=== PATIENT | male | born 1950 | race African-American/Black ===

== ENCOUNTER → 2016-02-27 | Outpatient (CLI) | payer OTHER ==
[~2016-02-27] MED LIST: ALBU8.5H6 IH; ALLO100T PO; ASPI-482 PO; CARV10CP PO; CYAN100T PO; DIGO0.12 PO; GABA-585 PO; GEMF600T PO; HYDR-2672 PO; LISI2.5T PO; MULT-189 PO; OXYC-250 PO; TIOT18CA IH
--- NOTE | 2016-02-28 02:22 | PAIN ---
DATE OF SERVICE: 02/27/2016 DIAGNOSES: Lumbar radiculopathy with low back pain and post-lumbar laminectomy syndrome. HISTORY OF PRESENT ILLNESS: The patient is a 65-year-old male who returns for followup status post medication management with oxycodone 10 mg. The patient has been doing very well with this, has been on a very stable regimen, but still complains of pain across the low back and rates it as 6 on a scale of 10 at its worse. He also had an injury where he was shoveling some snow a few weeks back and tripped and fell on his right ankle. He is now wearing a boot cast on the ankle itself on the right side. The patient reports that this has increased his pain to some extent and causes back to ache more as he is walking with a limp with the right calf and foot, but otherwise has been doing fairly well. No new motor or sensory deficits, reports about 75-80% improvement with the medications and without side effects. The patient had appropriate K-TRACS reporting today and appropriate urinalysis today. We will have the urinalysis drawn today as well as routine screening. The patient's old chart was reviewed as his current medication regimen and updated. Current review of systems updated today as well. PHYSICAL EXAMINATION: VITAL SIGNS: Today, the patient's blood pressure is 132/84, pulse 68, respirations 18, temperature 98.0 degrees Fahrenheit. Height is 6 feet 3 inches, weight is 164 pounds. GENERAL: The patient is awake, alert, oriented, appropriate, very pleasant demeanor. HEENT: Shows normocephalic, atraumatic. Extraocular movements are intact, symmetrical. Oral cavity shows mucous membranes are moist and pink. Dentition is intact. NECK: Shows anterior throat supple. CHEST: Shows normal on inspection. Breath sounds are clear to auscultation bilaterally. HEART: Shows S1 and S2 clear. ABDOMEN: Soft, nontender, nondistended. BACK: The patient's back shows spine grossly in midline. There is some mild tenderness with palpation in the lumbar paraspinous musculature. Also well-healed surgical scarring is again noted in the midline. No radiation of pain. No asymmetry, atrophy or hypertrophy. EXTREMITIES: The patient's lower extremity showed deep tendon reflexes at 1+ in the patellar and tendo calcaneus tendons. Motor exam is strong with dorsiflexion, extension, quadriceps and hamstring flexion, rated at 5/5 and symmetrical. PLAN: Options were discussed with the patient. Once again, we will refill the patient's oxycodone for a 90-day period. The patient was given instruction as well as side effects to be aware of with the medication. Again, urinalysis will be obtained today and the patient will follow up in 90 days or sooner if necessary. JUAN NINA MD DR: ASHLEY/pamela JOB#: [id number] / [id number]
== END | disposition home or self-care (01) ==
LOC: PNCL 12:41
PROVIDERS: ATTEND Anesthesiology
DX: M96.1 Postlaminectomy syndrome, not elsewhere classified (principal)
CPT/HCPCS: 99212

== ENCOUNTER → 2016-05-21 | Outpatient (CLI) | payer OTHER ==
--- NOTE | 2016-05-22 02:41 | PAIN ---
DATE OF SERVICE: 05/21/2016 DIAGNOSES: Lumbar radiculopathy with low back pain and post-lumbar laminectomy syndrome. HISTORY OF PRESENT ILLNESS: The patient is a 65-year-old male who returns for followup status post medication management with oxycodone 10 mg. The patient has been doing very well with this, has been on very stable regimen with approximately 70-80% improvement with the medication without side effects for an extended period of time. The patient has been very stable on this regimen and has been doing well with this. He reports he has been increasing his activity recently with some minor increase in pain in the low back, but not radiating to the lower extremities to a significant extent at this time. The patient reports no new motor or sensory deficits, no new bowel or bladder incontinence. At this point, the patient's pain is a 6 on a scale of 10 at its worst, worse in the morning when he first gets up and once he gets up, walking around and moving, his pain seems to get better. Again the medication is doing very well. At this time, he does not require any adjustments or changes. He has had appropriate K-TRACS reporting as well as appropriate urinalysis to date as well. PHYSICAL EXAMINATION: VITAL SIGNS: The patient's blood pressure 150/97, pulse is 65, respirations 18, temperature 98.2 degrees Fahrenheit, height 6 feet 3 inches, weight is 165 pounds. GENERAL: The patient is awake, alert, oriented, appropriate, very pleasant demeanor. HEENT: Head shows normocephalic, atraumatic. Extraocular movements are intact and symmetrical. Oral cavity shows mucous membranes moist and pink. Dentition is intact. NECK: Shows anterior throat supple. Swallow reflex is symmetrical. Neck shows full rotational motion of cervical spine, both laterally as well as extension and flexion without difficulty. CHEST: Shows normal on inspection. Breath sounds are clear to auscultation bilaterally. HEART: Shows S1 and S2 clear. No murmurs auscultated. ABDOMEN: Soft, nontender, nondistended. No palpable organomegaly is noted. No rebound or guarding demonstrated. BACK: The patient's back shows spine grossly midline. Well healed surgical scars noted with some flattening of lumbar lordotic curvature. Lumbar paraspinous musculature shows symmetrical on inspection with palpation shows moderately tender, but only diffusely so in the middle and lower distribution of paraspinous muscles and is symmetrical. No tenderness over the sacrum or the sacroiliac regions. The patient shows good rotational motion of the lumbar spine, both laterally as well as extension and flexion without difficulty. EXTREMITIES: Lower extremities showed deep tendon reflexes at 1+ in the patellar and tendo calcaneus tendons. Motor exam is strong with dorsiflexion, extension, quadriceps and hamstring flexion and rated at 5/5 and equal. Peripheral pulses are 1+ posterior tibial and dorsalis pedis pulses. Options were discussed with the patient. The patient's old chart was reviewed and his current medication regimen updated. Current review of systems updated today as well. We will refill the patient's oxycodone for a 2-month prescription. The patient was given instruction as well as side effects to be aware of. Also discussed the patient's blood pressure elevation today. He will talk with his primary care physician. He reports he does have a blood pressure machine at home, which he checks and is usually lower than this, although he has been smoking today and we discussed the importance of cigarette smoking cessation secondary to not only this, but other health matters as well. The patient understands and will discuss this again with his primary care physician as well as his blood pressure issues. The patient will follow up in approximately 2 months as scheduled or sooner if necessary. JUAN NINA MD DR: ASHLEY/pamela JOB#: [id number] / [id number]
== END | disposition home or self-care (01) ==
LOC: PNCL 12:56
PROVIDERS: ATTEND Anesthesiology
DX: M54.16 Radiculopathy, lumbar region (principal); M96.1 Postlaminectomy syndrome, not elsewhere classified
CPT/HCPCS: 99212

== ENCOUNTER → 2016-07-10 | Outpatient (CLI) | payer OTHER ==
--- NOTE | 2016-07-10 17:16 | PAIN ---
DATE OF SERVICE: 07/10/2016 PROGRESS NOTE FOR PAIN CLINIC DIAGNOSES: Lumbar radiculopathy with low back pain and post-lumbar laminectomy syndrome. HISTORY OF PRESENT ILLNESS: The patient is a 65-year-old male, who returns for followup status post medication management with oxycodone 10 mg. The patient reports he is doing very well with this, being on a very stable regimen. Reports the pain is relieved by about 70%-80% and is performing his daily activities without any sedation without any other side effects, no constipation or other concerns. The patient reports his pain is a 6 on a scale of 10 at its worst, is a 5, currently in his low back and bilateral lower extremities. We discussed the interventional techniques in the past. The patient is adamantly against this as he has had these by his Report prior and no specific improvement. The patient is doing well with his medications. He is pleased with his level of pain control, again without significant side effects. The patient reports he sleeps well at night 7-8 hours, but it does awaken occasionally, but not every night. The patient reports he is seeing an eye specialists at next week. 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 PHYSICAL EXAMINATION: VITAL SIGNS: The patient's blood pressure 131/88, pulse 76, respirations 18, temperature is 98.1 degrees Fahrenheit, height is 6 feet 3 inches, weight is 165 pounds. GENERAL: The patient is awake, alert, oriented, appropriate, very pleasant demeanor. HEENT: Head shows normocephalic, atraumatic. Extraocular movements are intact, symmetrical. Oral cavity, mucous membranes are moist and pink. Dentition is intact. NECK: Shows anterior throat supple without palpable lymphadenopathy noted. Swallow reflex is symmetrical. CHEST: Shows normal on inspection. Breath sounds clear to auscultation bilaterally. HEART: Shows S1 and S2 clear. No murmurs auscultated. ABDOMEN: Soft, nontender, nondistended. No palpable organomegaly noted. No rebound or guarding demonstrated. BACK: Shows spine grossly midline. Normal appearing thoracic kyphosis and flattening of lumbar lordotic curvature. Well-healed surgical scar noted. Lumbar paraspinous musculature is firm, symmetrical and normal muscle girth, but very firm musculature only mildly tender, but throughout the upper, middle and lower distribution without radiation. EXTREMITIES: Lower extremities showed deep tendon reflexes 1+ in the patellar and tendo calcaneus tendons. Motor exam is strong with about 4 on a scale of 5, but symmetrical and equal with dorsiflexion and extension. Options were discussed with the patient and the patient's old chart was reviewed as his current medication regimen updated. Current review of systems updated today as well and we will refill the patient's oxycodone. He has had appropriate K-TRACS reporting as well as appropriate urinalysis to date without concerns on these and the patient will follow up in approximately 2 months, was given instruction as well as side effects to be aware of with the medication. JUAN NINA MD DR: ASHLEY/pamela JOB#: [id number] / [id number]
== END | disposition home or self-care (01) ==
LOC: PNCL 10:52
PROVIDERS: ATTEND Anesthesiology
DX: M54.16 Radiculopathy, lumbar region (principal); M96.1 Postlaminectomy syndrome, not elsewhere classified
CPT/HCPCS: 99212

== ENCOUNTER → 2016-09-04 | Outpatient (CLI) | payer OTHER ==
[~2016-09-04] MED LIST changes: -HYDR-2672 PO; +HYDR-2766 PO; -OXYC-250 PO; +OXYC-328 PO
== END | disposition home or self-care (01) ==
LOC: PNCL 08:41
PROVIDERS: ATTEND Anesthesiology
DX: M54.16 Radiculopathy, lumbar region (principal); Z98.890 Other specified postprocedural states
CPT/HCPCS: 99212

== ENCOUNTER → 2016-10-30 | Outpatient (CLI) | payer OTHER ==
--- NOTE | 2016-10-30 16:34 | PAIN ---
DATE OF SERVICE: 10/30/2016 DIAGNOSES: Lumbar radiculopathy with low back pain and post-lumbar laminectomy syndrome. HISTORY OF PRESENT ILLNESS: The patient is a 65-year-old male who returns for followup status post medication management with oxycodone 10 mg. The patient reports he is doing very well with this, being on a very stable regimen without side effects. The patient has been taking this for some time now with very good results. The patient has had appropriate urinalysis and appropriate K-TRACS reporting to date and we will renew his contract today as well as urinalysis today. The patient reports his pain is anywhere from a 3 to a 6 on a scale of 10, usually about a 4 in the low back itself. The patient reports it as aching and dull. We discussed some interventional techniques in the past and the patient is still adamantly against this as he has tried these in the past by his report without significant improvement. He is doing quite well on his medication. The patient reports it does not awaken him from sleep at night. He feels much better when he is lying down, sleeps 6-7 hours a night without disturbance from his pain. The patient reports no new motor or sensory deficits, no new bowel or bladder incontinence or other complaints. PHYSICAL EXAMINATION: VITAL SIGNS: The patient's blood pressure is 145/97, pulse 69, respirations are 20, temperature is 98.0 degrees Fahrenheit. Height is 6 feet 3 inches, weight is 163 pounds. GENERAL: The patient is awake, alert, oriented, appropriate. He is a very pleasant demeanor. HEENT: Head is normocephalic, atraumatic. Extraocular movements are intact and symmetrical. Oral cavity shows mucous membranes moist and pink. Dentition is intact. NECK: Shows anterior throat supple without palpable lymphadenopathy noted. Swallow reflex is symmetrical. CHEST: Shows normal on inspection. Breath sounds are clear bilaterally. HEART: Shows S1 and S2 clear. ABDOMEN: Soft, nontender, nondistended. BACK: Shows spine grossly in the midline. Lumbar paraspinous musculature shows some mild tenderness with palpation in the lumbar middle and lower distribution, but only diffusely without radiation. No tenderness over the sacrum or sacroiliac regions. Good rotational motion of the lumbar spine, both laterally as well as extension and flexion. LOWER EXTREMITIES: Showed deep tendon reflexes 1+ in the patellar and tendo-calcaneus tendons, are equal. Motor exam is strong with 5/5 dorsiflexion, extension, quadriceps and hamstring flexion. Pulses are 1+, posterior tibial and dorsalis pedis. No peripheral edema is noted. Options were discussed with the patient and the patient's old chart was reviewed as his current medication regimen updated. Current review of systems updated today as well. We will proceed with refill the patient's oxycodone at 10 mg for a 2-month supply. The patient was given instruction as well as side effects to be aware of. Also, it is noted the patient has had appropriate K-TRACS reporting and urinalysis today. We will renew his urinalysis to date as well as contract renewal for his narcotic contract. The patient was given a copy of this as well. We discussed activity level as well as increasing activity and hydration level with the opioid medication as well. The patient understands and agrees and will follow up in approximately 2 months or sooner if necessary. JUAN NINA MD DR: ASHLEY/pamela JOB#: [id number] / [id number]
== END | disposition home or self-care (01) ==
LOC: PNCL 11:33
PROVIDERS: ATTEND Anesthesiology
DX: M54.16 Radiculopathy, lumbar region (principal)
CPT/HCPCS: G0463

== ENCOUNTER → 2017-02-19 | Outpatient (CLI) | payer OTHER | END | disposition home or self-care (01) | LOC: PNCL 10:45 | DX: M54.16 Radiculopathy, lumbar region (principal); K59.00 Constipation, unspecified | CPT/HCPCS: 99212 ==

== ENCOUNTER → 2017-04-16 | Outpatient (CLI) | payer OTHER | END | disposition home or self-care (01) | LOC: PNCL 10:49 | DX: M54.16 Radiculopathy, lumbar region (principal) | CPT/HCPCS: 99212 ==

== ENCOUNTER → 2017-06-11 | Outpatient (CLI) | payer OTHER | END | disposition home or self-care (01) | LOC: PNCL 10:46 | DX: M54.16 Radiculopathy, lumbar region (principal) | CPT/HCPCS: 99212 ==

== ENCOUNTER → 2017-08-11 | Outpatient (CLI) | payer OTHER | END | disposition home or self-care (01) | LOC: PNCL 14:12 | DX: M54.16 Radiculopathy, lumbar region (principal) | CPT/HCPCS: 99212 ==

== ENCOUNTER → 2017-10-06 | Outpatient (CLI) | payer OTHER ==
[~2017-10-06] MED LIST changes: +OXYC10TA PO
--- NOTE | 2017-10-07 06:25 | PAIN ---
DATE OF SERVICE: 10/06/2017 PROGRESS NOTE FOR PAIN CLINIC DIAGNOSIS: Lumbar radiculopathy with post lumbar laminectomy syndrome and low back pain. HISTORY OF PRESENT ILLNESS: The patient is a 66-year-old male who returns for followup status post medication management with oxycodone 10 mg. The patient has been on very consistent and stable regimen with these medications and continues to do so. The patient reports no significant side effects. No constipation, itching, nausea or sedation. He is able to function very well with the medication and has no limitations, actually increases his ability to walk further distances and do household activities. The patient has been sleeping well at night about 6-7 hours at night. Reports pain does not generally awaken him from sleep. The patient complains of pain in the low back and the bilateral lower extremities, mostly posterior, but very well controlled with medications. The patient reports the pain is aching and shooting at times, worse with standing, walking, changing positions and better sitting or lying down. The patient reports the pain is a 6 on a scale of 10 at its worst, 6 on average, 4 at its least and is a 4 today. The patient reports no new motor or sensory deficits. No new bowel or bladder incontinence. Again no significant side effects with medication. PHYSICAL EXAMINATION: VITAL SIGNS: The patient's blood pressure 121/79, pulse 57, respirations 16, temperature 98.1 degrees Fahrenheit, height is 6 feet 3 inches and weight 156 pounds. GENERAL: The patient is awake, alert, oriented, appropriate, very pleasant demeanor. HEENT: Head shows normocephalic and atraumatic. Extraocular movements are intact and symmetrical. Oral cavity: Mucous membranes are moist and pink. Dentition is intact. NECK: Shows anterior throat is supple without palpable lymphadenopathy noted. Swallow reflex is symmetrical. CHEST: Shows normal on inspection. Breath sounds are clear to auscultation bilaterally. HEART: Shows S1 and S2 clear. No murmurs are auscultated. ABDOMEN: Soft, nontender, nondistended, no palpable organomegaly is noted. No rebound or guarding demonstrated. BACK: Shows spine gross in the midline. Normal appearing thoracic kyphosis and some slight flattening of the lumbar lordotic curvature. A well-healed surgical scar is noted in the lumbar distribution. No significant tenderness in the spinous processes of the sacrum and sacroiliac regions. Mild tenderness in the low lumbar distribution of the paraspinous muscles only diffusely without radiation. EXTREMITIES: Lower extremities show deep tendon reflexes at 1+ in the patella and tendo calcaneus tendons. Motor exam is strong with 5/5 dorsiflexion, extension, quadriceps and hamstring flexion equal bilaterally. Peripheral pulses were 1+ posterior tibial. Options were discussed with the patient. The patient's old chart was reviewed as was his current medication regimen updated and current review of systems updated today as well. We will refill the patient's medication oxycodone 10 mg for a 2-month prescription. The patient has had appropriate K-TRACS reporting as well as appropriate urinalyses today. We will refill for 2-month period. The patient will return to the clinic in approximately 2 months or sooner as necessary. The patient was given instructions as well as side effects to be aware of with these medications. JUAN NINA MD DR: ASHLEY/pamela JOB#: [id number] / [id number]
== END | disposition home or self-care (01) ==
LOC: PNCL 13:10
PROVIDERS: ATTEND Anesthesiology
DX: M54.16 Radiculopathy, lumbar region (principal)
CPT/HCPCS: 99212

== ENCOUNTER → 2017-12-09 | Outpatient (CLI) | payer OTHER ==
--- NOTE | 2017-12-10 04:02 | PAIN ---
DATE OF SERVICE: 12/09/2017 PROGRESS NOTE FOR PAIN CLINIC DIAGNOSES: Lumbar radiculopathy with post-lumbar laminectomy syndrome and low back pain. HISTORY OF PRESENT ILLNESS: The patient is a 67-year-old male who returns for followup status post medication management with oxycodone 10 mg. The patient reports he has been doing very well with this, has been on very stable regimen with good control of his low back and bilateral lower extremity pain. The patient reports no side effects of the medication with about a 75%-80% improvement overall. The patient reports still some pain as aching and dull in the low back itself, worse with walking and activity but fairly well controlled. The patient reports it as a 7 on a scale of 10 at its worst, average and at its least and is a 7 pretty much at all times. The patient reports it is better with sitting or lying down or being on his feet, walking and standing but doing quite well. The patient reports no new motor or sensory deficits and no new bowel or bladder incontinence or other complaints. PHYSICAL EXAMINATION: VITAL SIGNS: The patient's blood pressure 116/54, pulse 73, respirations 18 and temperature 98.4 degrees Fahrenheit. Height is 6 feet 3 inches and weight is 156 pounds. GENERAL: The patient is awake, alert, oriented, appropriate and very pleasant demeanor. HEENT: Head is normocephalic and atraumatic. Extraocular movements are intact and symmetrical. Oral cavity, mucous membranes moist and pink. Dentition intact. NECK: Shows anterior throat supple without palpable lymphadenopathy noted. Swallow reflex is symmetrical. CHEST: Shows normal with inspection. Breath sounds are clear to auscultation bilaterally. HEART: Shows S1 and S2 clear. No murmurs auscultated. ABDOMEN: Soft, nontender and nondistended. No palpable organomegaly is noted. No rebound or guarding demonstrated. BACK: Shows spine grossly in the midline. Normal appearing thoracic kyphosis, some minor flattening of the lumbar lordotic curvature. Well-healed surgical scaring noted in the lumbar distribution. Lumbar paraspinous musculature shows symmetrical on inspection, on palpation shows some moderate tenderness bilaterally but only diffusely in the middle and upper, middle and lower distribution of the paraspinous muscles, again diffusely without radiation, without trigger points. The patient has good rotational motion of the lumbar spine, both laterally as well as extension and flexion without pain reported. EXTREMITIES: Lower extremity shows deep tendon reflexes 1+ in the patellar and tendo-calcaneus tendons. Motor exam is strong with 5/5 dorsiflexion, extension, quadriceps and hamstring flexion and symmetrical. Peripheral pulses are 1+ posterior tibial. No peripheral edema is noted. Options were discussed with the patient. The patient's old chart was reviewed as well as his current medication regimen updated. Current review of systems updated today as well. We will proceed with refill of the patient's oxycodone. The patient had appropriate K-TRACS reporting as well as appropriate urinalysis to date and we will refill the patient for 2 months. The patient was given instructions as well as side effects to be aware of. We will follow up in approximately 2 months or sooner as necessary. JUAN NINA MD DR: ASHLEY/pamela JOB#: [id number] / [id number]
== END | disposition home or self-care (01) ==
LOC: PNCL 14:25
PROVIDERS: ATTEND Anesthesiology
DX: M54.16 Radiculopathy, lumbar region (principal); M96.1 Postlaminectomy syndrome, not elsewhere classified
CPT/HCPCS: 99212

== ENCOUNTER → 2018-02-03 | Outpatient (CLI) | payer OTHER ==
[~2018-02-03] MED LIST changes: +BUTA1CAP31 PO; -HYDR-2766 PO; +HYDR-2769 PO; -OXYC-328 PO; +OXYC1TAB22 PO
--- NOTE | 2018-02-03 12:49 | PAIN ---
DATE OF SERVICE: 02/03/2018 PROGRESS NOTE FOR PAIN CLINIC DIAGNOSES: Lumbar radiculopathy with post-lumbar laminectomy syndrome and low back. HISTORY OF PRESENT ILLNESS: The patient is a 67-year-old male who returns for followup status post medication management with oxycodone. The patient states he has been doing very well because he has been on a very stable regimen for an extended period of time, now doing quite well with medication up to 4 tablets a day, 10 mg oxycodone. The patient reports he still has some significant back pain, but rates it as only a 6 on a scale of 10 at its worst, 3 on average and a 2 at its least and it is a 3 today. The patient reports it is aching and dull with motion and standing or walking. The patient reports it is better with sitting or lying down. It does not awaken him from sleep at night. The patient has been doing the same with the ability to tolerate distance walking, changing positions and working at home. The patient relates that his dog was lost for a period of several weeks and this has caused some emotional stress as well and he has been walking more, looking for the dog, which does seem to exacerbate his low back pain, but not doing intolerable level and the medication has been taking care of the pain to his satisfaction. The patient reports approximately 75% improvement with the medication and without side effects. The patient reports no new motor or sensory deficits. No new bowel or bladder incontinence or other complaints. PHYSICAL EXAMINATION: VITAL SIGNS: The patient's blood pressure 132/86, pulse 74, respirations 18 and temperature 98.3 degrees Fahrenheit, Height is 6 feet 3 inches, weight is 155 pounds. GENERAL: The patient is awake, alert, oriented, appropriate, very pleasant demeanor. HEENT EXAMINATION: Shows normocephalic, atraumatic. Extraocular movements are intact and symmetrical. Oral cavity, mucous membranes are moist and pink. Dentition is intact. NECK: Shows anterior throat supple, without palpable lymphadenopathy noted. Swallow reflex is symmetrical. CHEST: Shows normal on inspection. Breath sounds are clear to auscultation bilaterally. HEART: Shows S1, S2 clear. No murmurs auscultated. ABDOMEN: Soft, nontender and nondistended. No palpable organomegaly is noted. No rebound or guarding demonstrated. BACK: Shows spine grossly in the midline. Normal-appearing thoracic kyphosis and minor flattening of the lumbar lordotic curvature. There is a well-healed surgical scar in the lumbar distribution. Lumbar paraspinous muscle shows symmetrical on inspection. On palpation, it shows some mild tenderness, but only diffusely, throughout the upper, middle and lower distribution of the paraspinous muscles, but they are symmetrical without evidence of atrophy or hypertrophy. No trigger points. No radiation of pain. No tenderness over the spinous processes, sacrum or sacroiliac regions. The patient has good rotational motion of the lumbar spine, both laterally as well as extension and flexion without significant difficulty. EXTREMITIES: Lower extremities show deep tendon reflexes 1+ in the patellar and tendo calcaneus tendons are equal. Motor exam is strong with 5/5 dorsiflexion, extension, quadriceps and hamstring flexion and symmetrical as well. Peripheral pulses are 1+. No peripheral edema is noted. Options were discussed with the patient. The patient's old chart was reviewed as well as his current medication regimen updated. Current review of systems updated today as well, and we will proceed with refilling the patient's oxycodone for a 2-month period. The patient has had appropriate K-TRACS reporting as well as appropriate urinalysis to date, and we will give him a 2-month prescription with instructions and side effects to be aware of. The patient will return to the clinic in approximately 2 months as scheduled or sooner as necessary. JUAN NINA MD DR: ASHLEY/pamela JOB#: [id number] / [id number]
== END | disposition home or self-care (01) ==
LOC: PNCL 09:51
PROVIDERS: ATTEND Anesthesiology
DX: M54.16 Radiculopathy, lumbar region (principal); M96.1 Postlaminectomy syndrome, not elsewhere classified; Z79.899 Other long term (current) drug therapy
CPT/HCPCS: G0463

== ENCOUNTER → 2018-03-31 | Outpatient (CLI) | payer OTHER ==
--- NOTE | 2018-03-31 16:17 | PAIN ---
DATE OF SERVICE: 03/31/2018 PROGRESS NOTE FOR PAIN CLINIC DIAGNOSES: Lumbar radiculopathy with post-lumbar laminectomy syndrome and low back pain. HISTORY OF PRESENT ILLNESS: The patient is a 67-year-old male who returns for followup status post medication management with oxycodone 10 mg. The patient had been doing very well, has been on very stable regimen with this for some time now, reports doing quite well, decreased pain about 75-80% with the medication. The patient reports he has not been very active this is because of some cold weather lately and has been staying indoors mostly and resting. The patient reports this helps his pain as well, but he is still unable to get up and around when he needs to, still some pain in the low back, bilateral lower extremities, mostly in the posterior gluteus, posterior thighs, worse with standing from sitting position, but sleeping well at night, awakens him occasionally, but not every night, usually sleeps about 7 hours without disturbance. The patient reports he has been increasing distance walking when the weather is better, is doing household activities with greater ease and comfort and traveling fairly easily as well, getting in and out of a vehicle. The patient reports the pain is 7 on a scale of 10 at its worst, 6 on average, 5 at its least and is a 5 today. The patient reports it is an aching, dull, sometimes stabbing and burning, but generally just aching in the low back and occasionally shooting in the legs. PHYSICAL EXAMINATION: VITAL SIGNS: The patient's blood pressure 126/86, pulse 67, respirations 16, temperature 97.9 degrees Fahrenheit, weight is 157 pounds. GENERAL: The patient is awake, alert, oriented, appropriate, very pleasant demeanor. HEENT: Head shows normocephalic, atraumatic. Extraocular muscles are intact and symmetrical. Oral cavity: Mucous membranes moist and pink. Dentition is intact. NECK: Shows anterior throat supple without palpable lymphadenopathy noted. Swallow reflex symmetrical. CHEST: Shows normal with inspection. Breath sounds clear to auscultation bilaterally. HEART: Shows S1 and S2 clear. No murmurs auscultated. ABDOMEN: Soft, nontender, nondistended. No palpable organomegaly is noted. No rebound or guarding demonstrated. BACK: Shows spine grossly in the midline, slight exaggeration of thoracic kyphosis and flattening of lumbar lordotic curvature. Well healed surgical scar is noted in the lumbar distribution. Lumbar paraspinous muscle shows symmetrical on inspection. With palpation shows some moderate tenderness but only diffusely bilaterally throughout the upper, middle, lower distribution of paraspinous muscles. The patient has good rotational motion of the lumbar spine, both laterally greater than 10 degrees right and left as well as extension greater than 10 degrees, forward flexion 45 degrees without significant pain reported. EXTREMITIES: The patient's lower extremities show deep tendon reflexes at 1+ in the patellar and tendo-calcaneus tendons. Motor exam is strong with approximately 5/5 dorsiflexion, extension, and 4/5 quadriceps and hamstring flexion, but symmetrical. Peripheral pulses are 1+ posterior tibia. No peripheral edema is noted bilaterally. PLAN: Options were discussed with the patient. The patient's old chart was reviewed as his current medication regimen updated. Current review of systems updated today as well. We will refill the patient's oxycodone for a 2-month refill. The patient has had appropriate K-TRACS reporting and appropriate urinalysis to date. We have a urinalysis today taken for a routine screening. The patient was given instruction as well as side effects to be aware of with this medication. The patient will follow up in approximately 2 months or sooner as necessary. JUAN NINA MD DR: ASHLEY/pamela JOB#: [id number] / [id number]
== END | disposition home or self-care (01) ==
LOC: PNCL 09:49
PROVIDERS: ATTEND Anesthesiology
DX: Z01.818 Encounter for other preprocedural examination (principal); M54.16 Radiculopathy, lumbar region; M40.294 Other kyphosis, thoracic region
CPT/HCPCS: G0463

== ENCOUNTER → 2018-05-26 | Outpatient (CLI) | payer OTHER ==
[~2018-05-26] MED LIST changes: -CYAN100T PO; +CYAN100T2 PO
--- NOTE | 2018-05-27 04:01 | PAIN ---
DATE OF SERVICE: 05/26/2018 PROGRESS NOTE FOR PAIN CLINIC DIAGNOSES: Lumbar radiculopathy with lumbar post-laminectomy syndrome and low back pain. HISTORY OF PRESENT ILLNESS: The patient is a 67-year-old male who returns for followup status post medication management with oxycodone 10 mg. The patient reports he has been doing very well with this, is on a very stable regimen, taking the medication without significant side effects, occasional constipation but only very rarely. The patient reports he is controlling his pain fairly well with increased activity, walking and doing activities at home, traveling with greater ease. The patient reports he is sleeping well at night, does not awaken him from sleep, sleeps about 8 hours at a time. The patient reports the pain is in the low back itself, some into the posterior hips, mostly just in the low back aching, tingling and stabbing at times, rates it 8 on a scale of 10 at its worst over the last week, 7 on average and a 5 at its least and is a 5 today. The patient reports that he is able to tolerate medication and is not having any side effects, which allows him to do activities to an extent where he is pleased with this and its content. The patient reports no other changes. No new bowel or bladder incontinence or other complaints. No new motor or sensory deficits. PHYSICAL EXAMINATION: VITAL SIGNS: The patient's blood pressure is 116/71, pulse 70, respirations 18 and temperature 98.7 degrees Fahrenheit. Height is 6 feet 3 inches and weight 155 pounds. GENERAL: The patient is awake, alert, oriented, appropriate and very pleasant demeanor. HEENT: Head shows normocephalic and atraumatic. Extraocular movements are intact and symmetrical. Oral cavity: Mucous membranes moist and pink. Dentition is intact. NECK: Shows anterior throat supple without palpable lymphadenopathy noted. Swallow reflex symmetrical. CHEST: Shows normal on inspection. Breath sounds clear to auscultation bilaterally. HEART: Shows S1 and S2 clear. No murmurs auscultated. ABDOMEN: Soft, nontender and nondistended. No palpable organomegaly is noted. No rebound or guarding demonstrated. BACK: Shows spine grossly in the midline. Normal appearing thoracic kyphosis, some minor flattening of the lumbar lordotic curvature. Lumbar paraspinous muscle shows symmetrical on inspection, on palpation shows some moderate tenderness but only diffusely without significant radiation. EXTREMITIES: The patient's lower extremities show deep tendon reflexes at 1+ in the patellar and tendo-calcaneus tendons. Motor exam is strong with 5/5 dorsiflexion, extension, quadriceps and hamstring flexion and symmetrical. Peripheral pulses are 1+ posterior tibia. No peripheral edema is noted bilaterally. Options were discussed with the patient. The patient's old chart was reviewed as well as his current medication regimen updated. Current review of systems updated today as well and we will proceed with refill the patient's medication for 2-month prescription. The patient has had appropriate K-TRACS reporting as well as appropriate urinalysis to date. We will refill this for 2-month period. The patient was given instructions as well as side effects to be aware of with the medication and will follow up in 2 months or sooner if necessary. JUAN NINA MD DR: ASHLEY/pamela JOB#: [id number] / [id number]
== END | disposition home or self-care (01) ==
LOC: PNCL 09:36
PROVIDERS: ATTEND Anesthesiology
DX: M54.16 Radiculopathy, lumbar region (principal); M96.1 Postlaminectomy syndrome, not elsewhere classified
CPT/HCPCS: G0463

== ENCOUNTER → 2018-07-21 | Outpatient (CLI) | payer OTHER ==
--- NOTE | 2018-07-22 02:23 | PAIN ---
DATE OF SERVICE: 07/21/2018 PROGRESS NOTE FOR PAIN CLINIC DIAGNOSES: Lumbar radiculopathy with lumbar post-laminectomy syndrome and low back pain. HISTORY OF PRESENT ILLNESS: The patient is a 67-year-old male, who returns for followup status post medication management with oxycodone. The patient reports he has been doing very well with this, has been on very stable regimen, reports good control of pain with about 80% improvement overall without significant side effects. The patient reports still pain in the low back in the lower extremities bilaterally, but very manageable with his medication and his current regimen. The patient reports it is an 8 on a scale of 10 at its worst over the past week, 7 on average, 7 at its least and is 7 today. The patient reports it is aching, dull, sometimes tight and shooting into the legs, worse with walking and standing, but generally does pretty well with his medications and he has been able to get around each day with daily activities, taking care of his home and pets as well. The patient reports he has been increasing his ability to walk distances with the medications, again no side effects. The patient reports he is sleeping well at night. PHYSICAL EXAMINATION: VITAL SIGNS: The patient's blood pressure 145/85, pulse 67, respirations 18, temperature 97.8 degrees Fahrenheit, height 6 is feet and 3 inches and weighs 159 pounds. GENERAL: The patient is awake, alert, oriented, appropriate, very pleasant demeanor. HEENT: Head is normocephalic, atraumatic. Extraocular movements are intact and symmetrical. Oral cavity: Mucous membranes moist and pink. Dentition is intact. NECK: Shows anterior throat supple without palpable lymphadenopathy noted. Swallow reflex symmetrical. CHEST: Shows normal with inspection. Breath sounds clear to auscultation bilaterally. HEART: Shows S1, S2 clear. No murmurs auscultated. ABDOMEN: Soft, nontender, nondistended. BACK: Shows spine grossly in the midline, normal cervical lordotic curvature, thoracic kyphotic curvature, some minor flattening of lumbar lordotic curvature. Well-healed surgical scar in the lumbar distribution. Lumbar paraspinous muscle shows symmetrical on inspection. With palpation, it shows some mild tenderness throughout the upper, middle and lower distribution of paraspinous muscles, but only diffusely without radiation. No tenderness over the spinous processes, sacrum or sacroiliac regions. The patient has good rotational motion of lumbar spine, both laterally as well as extension and flexion without significant pain reported. EXTREMITIES: The patient's lower extremities show deep tendon reflexes at 1+ in the patellar and tendo calcaneus tendons. Motor exam is approximately 4 on a scale of 5 with quadriceps and hamstring flexion equal and 5/5 at the ankles with dorsiflexion, extension and symmetrical. Peripheral pulses are 1+ posterior tibial. No peripheral edema is noted. PLAN: Options were discussed with the patient. The patient's old chart was reviewed as well ahis his current medication regimen updated. Current review of systems updated today as well. We will refill the patient's medication, oxycodone 10 mg with instructions and side effects to be aware of discussed. The patient had appropriate K-TRACS reporting as well as appropriate urinalysis to date and we will refill the patient's medication for 2 months. The patient will return to clinic in approximately 2 months or sooner as necessary. JUAN NINA MD DR: ASHLEY/pamela JOB#: [id number] / [id number]
== END | disposition home or self-care (01) ==
LOC: PNCL 11:26
PROVIDERS: ATTEND Anesthesiology
DX: M54.16 Radiculopathy, lumbar region (principal); M96.1 Postlaminectomy syndrome, not elsewhere classified
CPT/HCPCS: G0463

== ENCOUNTER → 2018-09-15 | Outpatient (CLI) | payer OTHER ==
--- NOTE | 2018-09-15 20:30 | PAIN ---
DATE OF SERVICE: 09/15/2018 PROGRESS NOTE FOR PAIN CLINIC DIAGNOSES: Lumbar radiculopathy with lumbar post-laminectomy syndrome and low back pain. HISTORY OF PRESENT ILLNESS: The patient is a 67-year-old male who returns for followup status post medication management with oxycodone 10 mg. The patient reports he is doing very well, has been on very stable regimen without significant side effects. Reports the pain is generally about 80% improved or better with the medication. The patient reports no new motor or sensory deficits and no new bowel or bladder incontinence. The patient reports still significant pain in the low back itself, some in the lower extremities, radiating to the posterior gluteus and thighs, but generally just in the low back, worse with walking, standing, changing positions, better with sitting or lying down. The patient reports pain at 9 on a scale of 10 at its worst over the past week, 7 on average, 5 at its least and is a 5 today. The patient reports it is aching and tingling in the back, but again well controlled with medication without significant side effects. The patient reports he has been doing well, sleeping at night, better with sitting or lying down, but there has been increased activity with daily activities, walking, doing home activities and traveling with greater ease and comfort with the help of the medication. PHYSICAL EXAMINATION: VITAL SIGNS: The patient's blood pressure 124/86, pulse 69, respirations 18, temperature 97.9 degrees Fahrenheit, height is 6 feet 3 inches and weighs 165 pounds. GENERAL: The patient is awake, alert, oriented, appropriate, very pleasant demeanor. HEENT: Head is normocephalic, atraumatic. Extraocular movements are intact and symmetrical. Oral cavity: Mucous membranes moist and pink. Dentition is intact. NECK: Shows anterior throat supple without palpable lymphadenopathy noted. Swallow reflex is symmetrical. CHEST: Shows normal on inspection. Breath sounds clear to auscultation bilaterally. HEART: Shows S1, S2 clear. No murmurs auscultated. ABDOMEN: Soft, nontender and nondistended. No palpable organomegaly is noted. No rebound or guarding demonstrated. BACK: Shows spine grossly in the midline. Normal-appearing thoracic kyphosis and lumbar lordotic curvature slightly flattened. Well-healed surgical scars noted. Lumbar paraspinous muscle shows symmetrical, on palpation shows some mild tenderness diffusely bilaterally without radiation. The patient has good rotational motion of lumbar spine, both laterally as well as extension and flexion without significant increase in pain. EXTREMITIES: Lower extremities show deep tendon reflexes 1+ in the patellar and tendo-calcaneus tendons. Motor exam is strong with 5/5 dorsiflexion, extension and equal bilaterally. Peripheral pulses are 1+. No peripheral edema is noted. Options were discussed with the patient. The patient's old chart was reviewed as his current medication regimen updated. Current review of systems updated today as well. We will proceed with a refill of the patient's oxycodone 10 mg for a 2-month period. The patient has had appropriate K-TRACS reporting as well as appropriate urinalysis to date and we will make this a 2-month prescription. The patient was given instruction as well as side effects to be aware of with the medication and will follow up in approximately 2 months or sooner as necessary. JUAN NINA MD DR: ASHLEY/pamela JOB#: [id number] / [id number]
== END | disposition home or self-care (01) ==
LOC: PNCL 11:00
PROVIDERS: ATTEND Anesthesiology
DX: M54.16 Radiculopathy, lumbar region (principal); M96.1 Postlaminectomy syndrome, not elsewhere classified
CPT/HCPCS: G0463

== ENCOUNTER → 2018-11-10 | Outpatient (CLI) | payer OTHER ==
--- NOTE | 2018-11-10 16:11 | PN ---
DATE: 11/10/2018 PROGRESS NOTE FOR PAIN CLINIC DIAGNOSES: Lumbar radiculopathy with lumbar post-laminectomy syndrome and low back pain. HISTORY OF PRESENT ILLNESS: The patient is a 68-year-old male who returns for followup status post medication management with oxycodone 10 mg. The patient reports he is doing very well, has been on a very stable regimen with medication without side effects. The patient reports he is doing quite well, has increased his activities, walking, doing household activities, traveling with greater ease and comfort. Medication not cause any side effects, no sedation, drowsiness, itching or nausea. Occasional constipation, but is relieved with fiber and increased hydration. The patient reports no other changes. The patient reports his pain is 7 on a scale of 10 at all times, worst, average and least over the past week and is at 7 today. The patient reports it is aching and stabbing in the low back, some in the base of the neck as well, but mostly in the low back. He is having difficulty sleeping as his 's CPAP machine has not been functioning correctly recently and he stays up with her when she cannot sleep. The patient reports otherwise doing well. No new change. No new bowel or bladder incontinence. No side effects. PHYSICAL EXAMINATION: VITAL SIGNS: The patient's blood pressure 123/73, pulse 78, respirations 18, temperature 98.3 degrees Fahrenheit, height is 6 feet 3 inches and weight is 161 pounds. GENERAL: The patient is awake, alert, oriented, appropriate, very pleasant demeanor. HEENT: Shows head is normocephalic, atraumatic. Extraocular movements are intact and symmetrical. Oral cavity: Mucous membranes moist and pink. Dentition is intact. NECK: Shows anterior throat supple without palpable lymphadenopathy noted. Swallow reflex symmetrical. CHEST: Shows normal on inspection. Breath sounds are clear bilaterally. HEART: Shows S1, S2 clear. No murmurs auscultated. ABDOMEN: Soft, nontender, nondistended. BACK: Shows spine grossly in the midline, slight exaggerated thoracic kyphosis and minor flattening of lumbar lordotic curvature. Lumbar paraspinous muscle shows symmetrical on inspection, with palpation shows some mild tenderness diffusely throughout the upper, middle and lower distribution of the paraspinous muscles, but only diffusely, also cervical paraspinous musculature shows symmetrical on inspection, with palpation shows some mild tenderness in the inferior aspect of the cervical paraspinous muscles, but with good rotational motion of the cervical spine without difficulty. Lumbar spine shows good rotation as well including extension, flexion in right and left lateral rotation. EXTREMITIES: Lower extremities show deep tendon reflexes 1+ in the patellar and tendo calcaneus tendons. Motor exam is strong with 5/5 dorsiflexion and extension. Peripheral pulses are 1+. No peripheral edema is noted. Options were discussed with the patient. The patient's old chart was reviewed as his current medication regimen updated. Current review of systems updated today as well. We will refill the patient's oxycodone for 2-month period prescription. The patient has had appropriate K-TRACS reporting as well as appropriate urinalysis to date. The patient was given instruction as well as side effects to be aware of these medications. He will follow up in approximately 2 months or sooner if necessary. JUAN NINA MD DR: ASHLEY/pamela JOB#: [id number] / [id number]
== END | disposition home or self-care (01) ==
LOC: PNCL 11:05
PROVIDERS: ATTEND Anesthesiology
DX: M54.16 Radiculopathy, lumbar region (principal); M96.1 Postlaminectomy syndrome, not elsewhere classified
CPT/HCPCS: G0463

== ENCOUNTER → 2019-01-05 | Outpatient (CLI) | payer OTHER ==
--- NOTE | 2019-01-05 12:30 | PAIN ---
DATE OF SERVICE: 01/05/2019 PROGRESS NOTE FOR PAIN CLINIC DIAGNOSES: Lumbar radiculopathy with lumbar post-laminectomy syndrome and low back pain. HISTORY OF PRESENT ILLNESS: The patient is a 68-year-old male who returns for followup status post medication management with oxycodone for his low back pain. The patient reports he has been doing very well, has been on a very stable regimen. He has been on the medications for an extended period of time with good results and no significant side effects. The patient reports occasional constipation, but he does take some fiber laxative supplements every day and this seems to control or else he keeps himself hydrated adequately. The patient reports the pain has been little worse with some colder weather it had last week, but otherwise doing fairly well. The patient still rates his pain as about a 75%-80% improvement overall with the medication and again no significant side effects. The patient reports the pain is at 8 on a scale of 10 at its worst over the past week, 7 on average, 5 at its least and is a 5 today in the low back itself. The patient reports it is aching, tingling, constant at times in the low back itself without specific radiation at this time, but occasionally into the right lower extremity in the posterior gluteus and thigh. The patient reports no new motor or sensory deficits, no new bowel or bladder incontinence or other complaints. The patient is sleeping well at night, increases activity with walking and doing household activities to his normal level without any significant increase in physical exertion. PHYSICAL EXAMINATION: VITAL SIGNS: The patient's blood pressure 120/73, pulse 68, respirations 16, temperature 98.0 degrees Fahrenheit, height is 6 feet 3 inches and weight is 164 pounds. GENERAL: The patient is awake, alert, oriented, appropriate, very pleasant demeanor. HEENT: Shows normocephalic, atraumatic. Extraocular movements are intact and symmetrical. Oral cavity: Mucous membranes moist and pink. Dentition is intact. NECK: Shows anterior throat supple without palpable lymphadenopathy noted. Swallow reflex symmetrical. CHEST: Shows normal on inspection. Breath sounds clear to auscultation bilaterally. HEART: Shows S1, S2 clear. No murmurs auscultated. ABDOMEN: Soft, nontender, nondistended. No organomegaly is noted. No rebound or guarding demonstrated. BACK: Shows spine grossly in the midline, slight exaggerated thoracic kyphosis, some minor flattening of lumbar lordotic curvature. Lumbar paraspinous muscle shows symmetrical on inspection, on palpation shows some moderate tenderness diffusely bilaterally, but only diffusely without significant radiation. The patient shows good rotational motion of lumbar spine, both laterally greater than 10 degrees right and left as well as extension greater than 10 degrees, forward flexion 45 degrees without significant pain reported. EXTREMITIES: Lower extremities show deep tendon reflexes 1+ in the patellar and tendo calcaneus tendons are equal. Motor exam is strong with 5/5 dorsiflexion, extension, quadriceps and hamstring flexion and symmetrical. Peripheral pulses are 1+ posterior tibia. No peripheral edema is noted bilaterally. Options were discussed with the patient. The patient's old chart was reviewed as his current medication regimen updated. Current review of systems updated today as well. We will refill the patient's oxycodone 10 mg for a 2-month period. The patient had appropriate K-TRACS reporting as well as appropriate urinalysis to date. We will make a 2-month prescription with instructions, side effects to be aware of discussed with each of the medications. The patient will also have UA drawn today as a routine screening. Also, renew the patient's narcotic contract. The patient was given a copy of this as well. The patient will follow up in approximately 2 months or sooner as necessary. JUAN NINA MD DR: ASHLEY/pamela JOB#: [id number] / [id number]
== END | disposition home or self-care (01) ==
LOC: PNCL 11:33
PROVIDERS: ATTEND Anesthesiology
DX: M54.16 Radiculopathy, lumbar region (principal); M96.1 Postlaminectomy syndrome, not elsewhere classified
CPT/HCPCS: G0463

== ENCOUNTER → 2019-03-30 | Outpatient (CLI) | payer OTHER ==
--- NOTE | 2019-03-30 12:46 | PAIN ---
DATE OF SERVICE: 03/30/2019 PROGRESS NOTE FOR PAIN CLINIC DIAGNOSES: Lumbar radiculopathy with lumbar post-laminectomy syndrome and low back pain. HISTORY OF PRESENT ILLNESS: The patient is a 68-year-old male who returns for followup status post medication management with oxycodone 10 mg. The patient reports he has been doing very well with this, has been on very stable regimen with about a 70%-80% improvement in the low back pain, which allowed him to be functional to a level where he is content with. The patient reports still some significant pain in the low back, worse with activity. The patient reports it is a 9 on a scale of 10 at its worst over the past week, 7 on average, 6 at its least and is a 6 today. The patient reports it is aching, stabbing, can be constant with activity, standing, walking, changing positions, better with sitting or lying down, generally does not awaken him from sleep at night. The patient again has no side effects with his medications on very stable regimen as well. PHYSICAL EXAMINATION: VITAL SIGNS: The patient's blood pressure 122/84, pulse 81, respirations 18, temperature is 98.2 degrees Fahrenheit, height is 6 feet 3 inches and weight is 161 pounds. GENERAL: The patient is awake, alert, oriented, appropriate, very pleasant demeanor. HEENT: Shows normocephalic, atraumatic. Extraocular movements are intact and symmetrical. Oral cavity: Mucous membranes moist and pink. Dentition is intact. NECK: Shows anterior throat supple without palpable lymphadenopathy noted. Swallow reflex symmetrical. CHEST: Shows normal on inspection. Breath sounds are clear bilaterally. HEART: Shows S1, S2 clear. No murmurs auscultated. ABDOMEN: Soft, nontender, nondistended. No palpable organomegaly is noted. No rebound or guarding demonstrated. BACK: Shows spine grossly in the midline. Normal appearing thoracic kyphosis and lumbar lordotic curvature. Lumbar paraspinous muscle shows symmetrical on inspection with a well-healed surgical scar, with palpation shows some moderate tenderness diffusely bilaterally going diffusely without significant radiation. The patient has good rotational motion of lumbar spine, both laterally as well as extension and flexion without significant difficulty. EXTREMITIES: The patient's lower extremities show deep tendon reflexes at 1+ in the patellar and tendo calcaneus tendons are equal. Motor exam is approximately 4 on a scale of 5, but symmetrical with dorsiflexion, extension, quadriceps and hamstring flexion bilaterally. Peripheral pulses are 1+ posterior tibia. No peripheral edema is noted. Options were discussed with the patient. The patient's old chart was reviewed as his current medication regimen updated. Current review of systems updated today as well. We will refill the patient's oxycodone at 10 mg for a 2-month period. The patient has had appropriate K-TRACS reporting as well as appropriate urinalysis to date and we will refill this for 2-month period. The patient was given instruction as well as side effects to be aware of each of the medications and will follow up in approximately 2 months or sooner as necessary. JUAN NINA MD DR: ASHLEY/pamela JOB#: [id number] / [id number]
== END | disposition home or self-care (01) ==
LOC: PNCL 11:03
PROVIDERS: ATTEND Anesthesiology
DX: M54.16 Radiculopathy, lumbar region (principal); M96.1 Postlaminectomy syndrome, not elsewhere classified
CPT/HCPCS: G0463

== ENCOUNTER → 2019-05-25 | Outpatient (CLI) | payer OTHER ==
--- NOTE | 2019-05-25 11:24 | PAIN ---
DATE OF SERVICE: 05/25/2019 PROGRESS NOTE FOR PAIN CLINIC DIAGNOSES: Lumbar radiculopathy with lumbar low back pain and post-lumbar laminectomy syndrome. HISTORY OF PRESENT ILLNESS: The patient is a 68-year-old male who returns for followup status post medication management with oxycodone 10 mg and done very well, has been on a very stable regimen. No side effects. The patient reports it is controlling his pain fairly significantly about 75% or better most of the time. The patient reports it is worse with increased activity, excessive exertion with the low back, but it has been fairly constant with his activity recently. Reports the pain fairly well controlled. Again, no side effects of the medication. Patient reports the pain is in the low back itself, aching and constant, is rated as 7 on a scale of 10 at its worst over the past week, 7 on average and 4 at its least and is a 7 today. The patient reports no new motor or sensory deficits, no new changes, no new bowel or bladder incontinence or other concerns. We did discuss possibility of adding a nonsteroidal anti-inflammatory medicine. He has tried these in the past and we discussed this and we will try. He would like to try [id number] formulations initially. We discussed trying ibuprofen at 400-600 mg 3 times daily to see if this may decrease the pain, perhaps decrease the amount of narcotic that he may need. The patient is amenable to this and would like to try as well. PHYSICAL EXAMINATION: VITAL SIGNS: The patient's blood pressure 124/80, pulse 73, respirations 16, temperature 98.3 degrees Fahrenheit, weight is 163 pounds. GENERAL: The patient is awake, alert, oriented, appropriate, very pleasant demeanor. HEENT: Exam shows normocephalic, atraumatic. Extraocular movements are intact and symmetrical. Oral cavity shows mucous membranes moist and pink. Dentition is intact. NECK: Shows anterior throat supple without palpable lymphadenopathy noted. Swallow reflex symmetrical. CHEST: Shows normal on inspection. Breath sounds are clear bilaterally. HEART: Shows S1, S2 clear. No murmurs auscultated. ABDOMEN: Soft, nontender, nondistended. BACK: Shows spine grossly in the midline, slightly exaggerated thoracic kyphosis and minor flattening of lumbar lordotic curvature with well-healed surgical scar noted in the lumbar distribution. Lumbar paraspinous muscle shows symmetrical on inspection, on palpation shows some moderate tenderness to mild tenderness in the upper, middle and lower distribution of paraspinous muscles bilaterally without significant radiation. The patient has good rotational motion of lumbar spine, both laterally as well as extension and flexion without exacerbation of pain. EXTREMITIES: Lower extremities show deep tendon reflexes 1+ in the patellar and tendo calcaneus tendons. Motor exam is approximately 4 on a scale of 5, but equal and symmetrical dorsiflexion, extension, quadriceps and hamstring flexion. Peripheral pulses are 1+ posterior tibial without peripheral edema bilaterally. Options were discussed with the patient. The patient's old chart was reviewed as his current medication regimen updated. Current review of systems updated today as well and we will refill the patient's oxycodone 10 mg for a 2-month period. The patient had appropriate K-TRACS reporting as well as appropriate urinalysis to date and we will make this a 2-month refill. The patient again will start ibuprofen [id number] at 400-600 mg 3 times daily to see if this may decrease his need for narcotic medications and we discussed possibly reducing those in the future. The patient is amenable to these measures if successful and will return in approximately 2 months or sooner as necessary. The patient was given instruction as well as side effects to be aware of each of these medications. JUAN NINA MD DR: ASHLEY/pamela JOB#: [id number] / [id number]
== END ==
LOC: PNCL 10:34
PROVIDERS: ATTEND Anesthesiology
DX: M54.16 Radiculopathy, lumbar region (principal); M96.1 Postlaminectomy syndrome, not elsewhere classified; M54.5 Low back pain
CPT/HCPCS: G0463

== ENCOUNTER → 2019-07-20 | Outpatient (CLI) | payer OTHER ==
--- NOTE | 2019-07-20 12:35 | PAIN ---
DATE OF SERVICE: 07/20/2019 PROGRESS NOTE FOR PAIN CLINIC DIAGNOSES: Lumbar radiculopathy with lumbar post-laminectomy syndrome and low back pain. HISTORY OF PRESENT ILLNESS: The patient is a 68-year-old male who returns for followup status post medication management with oxycodone. The patient reports he is doing very well, has been on a very stable regimen with the medication. He reports "it is currently a lifesaver." The patient reports still some significant pain in the low back, but is very functional with medication without side effects. The patient rates his improvement by about 70-75% or better on some days with the medication itself. The patient reports it is a stabbing pain in the low back, described as aching and dull. Rates it as a 7 on a scale of 10 at its worst over the past week, 7 on average and 4 at its least and is a 7 today. The patient reports no new motor or sensory deficits. Again, no side effects with his medication, very stable regimen at this point. The patient has been trying to increase his activity to some extent as he reports he was eating more than normal at home, but has been able to lose some weight to some extent as well and is feeling better in that regard. The patient reports still doing some stretching exercises and strengthening exercises at home as previously. PHYSICAL EXAMINATION: VITAL SIGNS: The patient's blood pressure is 134/87, pulse 78, respirations 20, temperature is 98.1 degrees Fahrenheit, height 6 feet 3 inches, weight is 161 pounds. GENERAL: The patient is awake, alert, oriented, appropriate, very pleasant demeanor. HEENT: Shows normocephalic, atraumatic. Extraocular movements are intact and symmetrical. Oral cavity: Mucous membranes moist and pink. Dentition is intact. NECK: Shows anterior throat supple without palpable lymphadenopathy noted. Swallow reflex symmetrical. CHEST: Shows normal on inspection. Breath sounds clear to auscultation bilaterally. HEART: Shows S1, S2 clear. No murmurs auscultated. ABDOMEN: Soft, nontender, nondistended. No palpable organomegaly is noted. No rebound or guarding demonstrated. BACK: Shows spine grossly in the midline. Normal appearing thoracic kyphosis and minor flattening of lumbar lordotic curvature with well-healed surgical scar noted in the lumbar distribution. Lumbar paraspinous muscle shows symmetrical on inspection, with palpation shows some moderate tenderness diffusely bilaterally, but only diffusely without radiation. The patient has good rotational motion of lumbar spine, both laterally greater than 10 degrees right and left as well as extension greater than 10 degrees, forward flexion 45 degrees without significant pain reported. EXTREMITIES: The patient's lower extremities show deep tendon reflexes 1+ in the patellar and tendo calcaneus tendons are equal. Motor exam is strong with approximately 4 on a scale of 5, but symmetrical dorsiflexion, extension, quadriceps and hamstring flexion. Peripheral pulses are 1+. No peripheral edema bilaterally. Options were discussed with the patient. The patient's old chart was reviewed as his current medication regimen updated. Current review of systems updated today as well and we will proceed with a refill of the patient's oxycodone for a 2-month period. The patient has had appropriate K-TRACS reporting as well as appropriate urinalysis to date and we will make this a 2-month prescription refill. The patient will return to clinic in approximately 60 days or sooner if necessary. The patient was given instruction as well as side effects to be aware of the medications and will follow up as scheduled. JUAN NINA MD DR: ASHLEY/pamela JOB#: [id number] / [id number]
== END ==
LOC: PNCL 11:06
PROVIDERS: ATTEND Anesthesiology
DX: M54.16 Radiculopathy, lumbar region (principal); M96.1 Postlaminectomy syndrome, not elsewhere classified; M54.5 Low back pain
CPT/HCPCS: G0463

== ENCOUNTER → 2019-09-14 | Outpatient (CLI) | payer OTHER ==
[~2019-09-14] MED LIST changes: -CYAN100T2 PO; +CYAN100T21 PO; +GABA300C18 PO; +botox
--- NOTE | 2019-09-14 12:49 | PAIN ---
DATE OF SERVICE: 09/14/2019 PROGRESS NOTE FOR PAIN CLINIC DIAGNOSES: Lumbar radiculopathy with lumbar post-laminectomy syndrome and low back pain. HISTORY OF PRESENT ILLNESS: The patient is a 68-year-old male who returns for followup status post medication management with oxycodone 10 mg. The patient is taking up to 4 of these daily. The patient reports he is doing very well, has been on a very stable regimen and for a prolonged period of time with the medication. Reports that his pain is reduced by about 70% overall with the medication. Still pain in the low back and bilateral lower extremities without significant radiation, but into the posterior gluteus and hips posteriorly. The patient reports that without the medication he will be having much more pain and reports they are "a lifesaver." The patient reports this pain is a 5/10 at its least and is a 7 at its worst, is a 6 on average over the past week and is a 6 today. The patient reports it is aching and dull in the low back, worse with walking, standing, changing positions, better with sitting or lying down, generally it does not awaken him from sleep at night. If he is walking whether about 10-15 minutes, the pain does increase. The patient reports he has been staying at home mostly lately and has been fairly sedentary and the pain has not been flared up too much. The patient reports no side effects with medications. The patient reports no new motor or sensory deficits, no new bowel or bladder incontinence or other complaints. PHYSICAL EXAMINATION: VITAL SIGNS: The patient's blood pressure 127/83, pulse 57, respirations 16, temperature 98.3 degrees Fahrenheit, height is 6 feet 3 inches and weight is 156 pounds. GENERAL: The patient is awake, alert, oriented, appropriate, very pleasant demeanor. HEENT: Shows normocephalic, atraumatic. Extraocular movements are intact and symmetrical. Oral cavity shows mucous membranes moist and pink. Dentition is intact. NECK: Shows anterior throat supple without palpable lymphadenopathy noted. Swallow reflex symmetrical. CHEST: Shows normal on inspection. Breath sounds are clear bilaterally. HEART: Shows S1, S2 clear. No murmurs auscultated. ABDOMEN: Soft, nontender, nondistended. No palpable organomegaly is noted. There is no rebound or guarding demonstrated. BACK: Shows spine grossly in the midline. Normal appearing thoracic kyphosis and some slight flattening of lumbar lordotic curvature with well-healed surgical scarring noted in the lumbar distribution. Lumbar paraspinous muscle shows symmetrical on inspection, on palpation shows some moderate tenderness diffusely bilaterally, but only diffusely without significant radiation. The patient has good rotational motion of lumbar spine, both laterally as well as extension and flexion without difficulty. EXTREMITIES: Lower extremities show deep tendon reflexes at 1+ in the patellar and tendo calcaneus tendons. Motor exam is approximately 4 on a scale of 5, but symmetrical with dorsiflexion, extension, quadriceps and hamstring flexion equal. Peripheral pulses are 1+. No peripheral edema is noted. Options were discussed with the patient. The patient's old chart was reviewed as his current medication regimen updated. Current review of systems updated today as well. We will proceed with refill of the patient's oxycodone 10 mg for a 2-month period. The patient had appropriate K-TRACS reporting as well as appropriate urinalysis to date. We will have a urinalysis drawn today as routine screening. The patient will return to the clinic in approximately 2 months or sooner as necessary. He was given instructions as well as side effects to be aware of with his medications. JUAN NINA MD DR: ASHLEY/pamela JOB#: [id number] / [id number]
== END | disposition home or self-care (01) ==
LOC: PNCL 11:31
PROVIDERS: ATTEND Anesthesiology
DX: M54.16 Radiculopathy, lumbar region (principal); M96.1 Postlaminectomy syndrome, not elsewhere classified; M54.5 Low back pain
CPT/HCPCS: G0463

== ENCOUNTER → 2019-11-09 | Outpatient (CLI) | payer OTHER ==
--- NOTE | 2019-11-09 13:00 | PDOC ---
Progress Note - Pain Clinic Date of Service: DOS: DATE: 11/09/19 TIME: 12:50 Diagnosis: Dx: Lumbar radiculopathy with lumbar postlaminectomy syndrome and low back pain History or Present Illness: HPI: 68-year-old male returns follow-up status post medication management with oxycodone. Patient reports he doing very well has been on a very stable regimen. Patient reports still significant pain in the low back described as a 7 on scale of 10, at its worst, over the past week, 6 on average and 4 least; is a 6 today. Patient reports still pain with walking standing changing positions better with sitting or laying down generally does not awaken him from sleep at night and reports he is doing very well with his medication has no specific side effects and overall about a 70 to 75% improvement with the medications currently. She reports no new motor or sensory deficits no new complaints Physical Exam: VS: Blood pressure is 122/81 pulse 70 respirations 20 temperature 98.0 F height is 6 feet 3 inches weight is 158 pounds PE: PHYSICAL EXAMINATION: GENERAL: The patient is awake, alert, oriented, appropriate, very pleasant demeanor HEENT: Shows normocephalic, atraumatic. Extraocular movements are intact and symmetrical. Oral cavity: Mucous membranes moist and pink. NECK: Shows anterior throat supple without palpable lymphadenopathy noted. Swallow reflex symmetrical. CHEST: Shows normal on inspection. Breath sounds are clear bilaterally, distant but no rales rhonchi or wheezes auscultated. HEART: Shows S1, S2 clear. No murmurs auscultated. ABDOMEN: Soft, nontender, nondistended. No palpable organomegaly is noted. No rebound or guarding demonstrated. BACK: Shows spine grossly in the midline. Normal-appearing cervical lordotic curvature. There is slightly increased thoracic kyphosis, some minor flattening of the lumbar lordotic curvature. Lumbar paraspinous muscles show symmetrical on inspection, with well-healed surgical scar, on palpation shows some moderate tenderness diffusely throughout the upper, middle and lower distribution of the paraspinous muscles bilaterally and also into the lower thoracic paraspinous musculature, firm and tender, but without specific trigger points, without radiation of pain. The patient has good rotational motion of the lumbar spine, both laterally as well as extension and flexion without significant difficulty. No tenderness over the spinous processes, sacrum or sacroiliac regions. EXTREMITIES: Lower extremities show deep tendon reflexes 1 in the patellar and tendo calcaneus tendons. Motor exam is 4 on a scale of 5 with right dorsiflexion, extension, quadriceps and hamstring flexion and 4/5 on the left. Peripheral pulses are 1+ posterior tibial. No peripheral edema is noted bilaterally. Lower extremities are warm and dry to touch, equal in color and appearance. SKIN: Shows warm and dry, good turgor. No edema. No sores, rashes or bruising throughout. Procedure: Procedure: Options were discussed with the patient. Patient's old chart was reviewed his his current medication regimen updated current review of systems updated today as well. We will refill patient's medication oxycodone 10 mg to take 1 every 6 hours as needed pain patient was given 2-month prescription as he has had appropriate K tracts report as well as appropriate urinalyses to date. Patient is given instruction as well as side effects beware with each of the medications. Patient will follow-up in approximate 2 months or sooner if necessary. Medication Injected: Med Injected: None Condition at Discharge: Condition at Discharge: Condition at discharge is stable. JUAN NINA MD Nov 09, 2019 13:00
== END | disposition home or self-care (01) ==
LOC: PNCL 11:24
PROVIDERS: ATTEND Anesthesiology
DX: M54.16 Radiculopathy, lumbar region (principal); M96.1 Postlaminectomy syndrome, not elsewhere classified; Z88.0 Allergy status to penicillin; Z88.8 Allergy status to other drugs, medicaments and biological substances; Z79.82 Long term (current) use of aspirin; Z79.899 Other long term (current) drug therapy
CPT/HCPCS: 99212; G0463

== ENCOUNTER → 2020-01-04 | Outpatient (CLI) | payer OTHER ==
--- NOTE | 2020-01-04 13:08 | PDOC ---
Progress Note - Pain Clinic Date of Service: DOS: DATE: 01/04/20 TIME: 13:04 Diagnosis: Dx: Lumbar radiculopathy with lumbar postlaminectomy syndrome History or Present Illness: HPI: 69-year-old male returns follow-up status post medication management with oxycodone 10 mg. Patient reports he is doing very well with his been on very stable regimen has some pain reported with recent weather changes and moisture and barometric changes however otherwise doing quite well and tolerating the medication without significant side effects. Patient reports his pain is a 9 on a scale of 10 at its worst 5 on average and 5 its least is a 5 today. Patient reports no new motor or sensory deficits complains of pain low back itself aching and dull sometimes shooting in the lower extremities mostly in the low back worse with standing walking changing positions better with sitting or laying down generalized not awaken from sleep at night. Patient reports no new motor or sensory bowel or bladder incontinence or other complaints. Physical Exam: VS: Blood pressure is 123/82 pulse 79 respirations are 16 temperature 90.5 F weight is 157 pounds PE: PHYSICAL EXAMINATION: GENERAL: The patient is awake, alert, oriented, appropriate, very pleasant demeanor HEENT: Shows normocephalic, atraumatic. Extraocular movements are intact and symmetrical. Oral cavity: Mucous membranes moist and pink. NECK: Shows anterior throat supple without palpable lymphadenopathy noted. Swallow reflex symmetrical. CHEST: Shows normal on inspection. Breath sounds are clear bilaterally. HEART: Shows S1, S2 clear. No murmurs auscultated. ABDOMEN: Soft, nontender, nondistended, obese. No palpable organomegaly is noted. No rebound or guarding demonstrated. BACK: Shows spine grossly in the midline. Normal-appearing cervical lordotic curvature. There is slightly increased thoracic kyphosis, some minor flattening of the lumbar lordotic curvature. Lumbar paraspinous muscles show symmetrical on inspection, on palpation shows some moderate tenderness diffusely throughout the upper, middle and lower distribution of the paraspinous muscles without specific trigger points, without radiation of pain. The patient has good rotational motion of the lumbar spine, both laterally as well as extension and flexion without significant difficulty. No tenderness over the spinous processes, sacrum or sacroiliac regions. EXTREMITIES: Lower extremities show deep tendon reflexes 1 in the patellar and tendo calcaneus tendons. Motor exam is 4 on a scale of 5 with right dorsiflexion, extension, quadriceps and hamstring flexion and 4/5 on the left. Peripheral pulses are 1+ posterior tibial. No peripheral edema is noted bilaterally. Lower extremities are warm and dry to touch, equal in color and appearance. SKIN: Shows warm and dry, good turgor. Procedure: Procedure: Options were discussed with the patient. Patient will chart was reviewed his current medication regimen updated current review of systems updated today as well. She has been on very stable regimen and has had appropriate K. [employer] reporting as well as appropriate urinalyses to date. We refill patient's oxycodone for a 2-month period. We discussed decreasing the patient's narcotic usage and at this time he is doing very well very stable and we will revisit this in the future as well. Patient agrees and understands. Patient was given instructions well side effects beware with the medications. Also will have a new medication contract updated and signed today. Patient will follow up in approximate 2 months or sooner if necessary. Medication Injected: Med Injected: None Condition at Discharge: Condition at Discharge: Condition at discharge is stable. JUAN NINA MD Jan 04, 2020 13:08
== END | disposition home or self-care (01) ==
LOC: PNCL 12:46
PROVIDERS: ATTEND Anesthesiology
DX: M54.16 Radiculopathy, lumbar region (principal); M96.1 Postlaminectomy syndrome, not elsewhere classified; Z79.82 Long term (current) use of aspirin; Z79.899 Other long term (current) drug therapy; Z88.0 Allergy status to penicillin; Z88.6 Allergy status to analgesic agent; Z88.8 Allergy status to other drugs, medicaments and biological substances; Z88.2 Allergy status to sulfonamides
CPT/HCPCS: G0463

== ENCOUNTER → 2020-02-29 | Outpatient (CLI) | payer OTHER ==
--- NOTE | 2020-02-29 13:30 | PDOC ---
Progress Note - Pain Clinic Date of Service: DOS: DATE: 02/29/20 TIME: 13:26 Diagnosis: Dx: Lumbar radiculopathy with lumbar postlaminectomy syndrome History or Present Illness: HPI: 69-year-old male returns follow-up status post medication management with oxycodone. Patient reports doing very well has been on very stable regimen with the medication reports that some days he would not know what to do without it but most days it is fairly well controlled to approximately 70 to 75% level of improvement without significant side effects. Patient reports some days worse than the other depending on activity higher activities being more painful but is able to anticipate these days and is generally well controlled. Patient reports still pain low back bilateral lower extremity stabbing and aching and constant at times with walking standing better with sitting or laying down patient reports it averages 6 on a scale of 10 during the week worst 6 and the least at 3 on a scale of 10 today is a 6 as well. Patient reports no new motor or sensory deficits again no side effects with the medications sleeping fairly well without pain disturbing his sleep most nights. Physical Exam: VS: Blood pressure is 123/76 pulse 64 respiration 16 temperature Fahrenheit weight 155 pounds PE: PHYSICAL EXAMINATION: GENERAL: The patient is awake, alert, oriented, appropriate, very pleasant demeanor HEENT: Shows normocephalic, atraumatic. Extraocular movements are intact and symmetrical. NECK: Shows anterior throat supple without palpable lymphadenopathy noted. Swallow reflex symmetrical. CHEST: Shows normal on inspection. Breath sounds are clear. HEART: Shows S1, S2 clear. No murmurs auscultated. ABDOMEN: Soft, nontender, nondistended, obese. No palpable organomegaly is noted. No rebound demonstrated. BACK: Shows spine grossly in the midline. Normal-appearing cervical lordotic curvature. There is slightly increased thoracic kyphosis, some minor flattening of the lumbar lordotic curvature. Well-healed surgical scar is noted in the midline. Lumbar paraspinous muscles show symmetrical on inspection, on palpation shows some moderate tenderness diffusely throughout the upper, middle and lower distribution of the paraspinous muscles bilaterally, but without specific trigger points, without radiation of pain. The patient has good rotational motion of the lumbar spine, both laterally as well as extension and flexion without significant difficulty. No tenderness over the spinous processes, sacrum or sacroiliac regions. EXTREMITIES: Lower extremities show deep tendon reflexes 1+ in the patellar and tendo calcaneus tendons. Motor exam is 4 on a scale of 5 with right dorsiflexion, extension, quadriceps and hamstring flexion and 4/5 on the left. Peripheral pulses are 1+ posterior tibial. No peripheral edema is noted bilaterally. Lower extremities are warm and dry to touch, equal in color and appearance. SKIN: Shows warm and dry, good turgor. No edema. No sores, rashes or bruising throughout. Procedure: Procedure: Options were discussed with the patient. Patient's old chart was reviewed his his current medication regimen updated current review of systems updated today as well. We will refill patient's medication oxycodone 7.5 mg for 2-month period. Patient has had appropriate K tracks reporting as well as appropriate urinalyses to date. We discussed potentially decreasing patient's medication amount and concentration in the future as tolerated. We will make this a 2-mo h refill patient return to clinic in approximately 2 months or sooner if necessary. Patient will continue with strengthening stretching exercises as well as daily walking as weather tolerated. Medication Injected: Med Injected: None Condition at Discharge: Condition at Discharge: Condition at discharge stable, patient tolerated the procedure well and had no complications. JUAN NINA MD Feb 29, 2020 13:30
== END | disposition home or self-care (01) ==
LOC: PNCL 13:01
PROVIDERS: ATTEND Anesthesiology
DX: M54.16 Radiculopathy, lumbar region (principal); M96.1 Postlaminectomy syndrome, not elsewhere classified; Z79.82 Long term (current) use of aspirin; Z79.899 Other long term (current) drug therapy; Z88.0 Allergy status to penicillin; Z88.8 Allergy status to other drugs, medicaments and biological substances
CPT/HCPCS: G0463

== ENCOUNTER → 2020-04-25 | Outpatient (CLI) | payer OTHER ==
--- NOTE | 2020-04-25 13:33 | PDOC ---
Progress Note - Pain Clinic Date of Service: DOS: DATE: 04/25/20 TIME: 13:29 Diagnosis: Dx: Lumbar radiculopathy with lumbar postlaminectomy syndrome History or Present Illness: HPI: 69-year-old male returns follow-up status post medication management with oxycodone 10 mg. Patient reports doing very well with this is been a very stable regimen patient rates the pain reduction about 70% for most times with his low back pain. Patient reports no side effects with the medication he has been on very stable regimen taking 4 tablets a day on average. Patient reports no new motor or sensory deficits rates his pain as a 8 on scale 10 is worse over the past week 5 on average 3 at its least and is a 5 today. Patient reports is aching and constant in the low back rating the bilateral lower extremities mostly posteriorly but without significant motor weakness or limitation. Patient reports he is still walking daily when the weather is allowable doing household activities are fairly good ease and comfort and the medication does allow him to do these things with good comfort most days. Patient reports he is sleeping well at night does not awaken him from sleep. Physical Exam: VS: Blood pressure is 125/83 pulse 81 respirations are 18 temperature 98.0 F weight is 150 pounds PE: PHYSICAL EXAMINATION: GENERAL: The patient is awake, alert, oriented, appropriate, very pleasant demeanor HEENT: Shows normocephalic, atraumatic. Extraocular movements are intact and symmetrical. Oral cavity: Mucous membranes moist and pink. Dentition is intact. NECK: Shows anterior throat supple without palpable lymphadenopathy noted. CHEST: Shows normal on inspection. Breath sounds are clear bilaterally, no rales or rhonchi are auscultated. HEART: Shows S1, S2 clear. No murmurs auscultated. ABDOMEN: Soft, nontender, nondistended, flat. No palpable organomegaly is noted. . BACK: Shows spine grossly in the midline. Normal-appearing cervical lordotic curvature. There is increased thoracic kyphosis, some flattening of the lumbar lordotic curvature, with well-healed midline surgical scar. Lumbar paraspinous muscles show symmetrical on inspection, on palpation shows some moderate tenderness diffusely throughout the upper, middle and lower distribution of the paraspinous muscles, but without specific trigger points, and without radiation of pain. The patient has good rotational motion of the lumbar spine, both laterally as well as extension and flexion without significant difficulty. EXTREMITIES: Lower extremities show deep tendon reflexes 1+ in the patellar and tendo calcaneus tendons. Motor exam is 4 on a scale of 5 with right dorsiflexion, extension, quadriceps and hamstring flexion and 4/5 on the left. Peripheral pulses are 1+ posterior tibial. No peripheral edema is noted bilaterally. Lower extremities are warm and dry to touch, equal in color and appearance. SKIN: Shows warm and dry, good turgor. No edema. No sores, rashes or bruising throughout. Procedure: Procedure: Options discussed with the patient. Patient chart was reviewed as her current medication regimen updated current review of systems updated today as well. We will refill patient's oxycodone 10 mg with instructions side effects to be aware of for a 2-month period. Patient has had appropriate K tracts reporting as well as appropriate urinalyses to date and will have a urinalysis done today as well as part of routine screening process. Patient will return to the clinic in approximate 2 months or sooner as necessary. Medication Injected: Med Injected: None Condition at Discharge: Condition at Discharge: Condition at discharge is stable. JUAN NINA MD Apr 25, 2020 13:33
== END | disposition home or self-care (01) ==
LOC: PNCL 13:16
PROVIDERS: ATTEND Anesthesiology
DX: M96.1 Postlaminectomy syndrome, not elsewhere classified (principal); M54.16 Radiculopathy, lumbar region; Z79.82 Long term (current) use of aspirin; Z79.899 Other long term (current) drug therapy; Z98.890 Other specified postprocedural states; Z88.0 Allergy status to penicillin; Z88.8 Allergy status to other drugs, medicaments and biological substances
CPT/HCPCS: G0463

== ENCOUNTER → 2020-06-20 | Outpatient (CLI) | payer OTHER ==
--- NOTE | 2020-06-20 13:39 | PDOC ---
Progress Note - Pain Clinic Date of Service: DOS: DATE: 06/20/20 TIME: 13:36 Diagnosis: Dx: Lumbar to colopathy with lumbar postlaminectomy syndrome History or Present Illness: HPI: 69-year-old male returns for follow-up status post medication management with oxycodone 10 mg. Patient reports he been doing very well with the medications without any side effects. Patient reports about a 75% improvement overall although patient reports he has not not been very active lately and has not had much of an appetite he is lost about 6 pounds since his last visit 2 months ago. Patient reports he does not have much appetite has not been doing much during the day as the weather has been cold until recently patient reports he has pain still in the low back itself in the bilateral lower extremities rating the posterior gluteus and thighs but only occasionally mostly in the low back itself patient reports he is doing well with the medication however and it is covering the pain fairly well. Patient reports the pain is aching and stabbing can be constant with standing walking better with sitting or laying down generally does not awaken him from sleep at night. Patient reports she still taking gabapentin as well as he takes it just once in the morning. Patient rates his pain as a 7 on scale 10 is worse over the past week 7 on average 5 its least is a 7 today. She reports no new motor or sensory deficits no new bowel or bladder incontinence. Physical Exam: VS: Blood pressure is 119/77 pulse 72 respirations 18 temperature 90.1 F height is 6 foot 3 inches weight is 144 pounds PE: PHYSICAL EXAMINATION: GENERAL: The patient is awake, alert, oriented, appropriate, very pleasant demeanor HEENT: Shows normocephalic, atraumatic. Extraocular movements are intact and symmetrical. Oral cavity: Mucous membranes moist and pink. Dentition is intact. NECK: Shows anterior throat supple without palpable lymphadenopathy noted. Swallow reflex symmetrical. CHEST: Shows normal on inspection. Breath sounds are clear bilaterally, no rales or rhonchi. HEART: Shows S1, S2 clear. No murmurs auscultated. ABDOMEN: Soft, nontender, nondistended, flat. No palpable organomegaly is noted. No rebound or guarding demonstrated. BACK: Shows spine grossly in the midline. Normal-appearing cervical lordotic curvature. There is slightly increased thoracic kyphosis, some minor flattening of the lumbar lordotic curvature. Lumbar paraspinous muscles show symmetrical on inspection, on palpation shows some moderate tenderness diffusely throughout the upper, middle and lower distribution of the paraspinous muscles, but without specific trigger points, without radiation of pain. The patient has good rotational motion of the lumbar spine, both laterally as well as extension and flexion without significant difficulty. No tenderness over the spinous processes, sacrum or sacroiliac regions. EXTREMITIES: Lower extremities show deep tendon reflexes 1+ in the patellar and tendo calcaneus tendons. Motor exam is 4 on a scale of 5 with right dorsiflexion, extension, quadriceps and hamstring flexion and 4/5 on the left. Peripheral pulses are 1+ posterior tibial. No peripheral edema is noted bilaterally. Lower extremities are warm and dry. SKIN: Shows warm and dry, good turgor. No edema. No sores, rashes or bruising throughout. Procedure: Procedure: Options were discussed with patient. Patient chart reviews his current medication regimen updated current review of systems updated today as well. We will refill patient's medication but discussed decreasing the amount as he has been less active and his pain is very well controlled to only 100 tablets monthly instead of 120. Patient is agreeable to this and we will change his gabapentin to nightly instead of in the morning to see if this may help him afford some more energy during the day and less drowsiness. Patient is agre eable this as well. Patient was given instructions well side effects aware of each of the medications and will follow up in approximately 2 months or sooner as necessary. Medication Injected: Med Injected: None Condition at Discharge: Condition at Discharge: Condition at discharge is stable. JUAN NINA MD Jun 20, 2020 13:39
== END | disposition home or self-care (01) ==
LOC: PNCL 13:04
PROVIDERS: ATTEND Anesthesiology
DX: M96.1 Postlaminectomy syndrome, not elsewhere classified (principal); Z79.82 Long term (current) use of aspirin; Z79.899 Other long term (current) drug therapy; Z88.0 Allergy status to penicillin; Z88.8 Allergy status to other drugs, medicaments and biological substances
CPT/HCPCS: 99212; G0463

== ENCOUNTER → 2020-08-15 | Outpatient (CLI) | payer OTHER ==
--- NOTE | 2020-08-15 13:23 | PDOC ---
Progress Note - Pain Clinic Date of Service: DOS: DATE: 08/15/20 TIME: 13:19 Diagnosis: Dx: Lumbar radiculopathy with lumbar postlaminectomy syndrome History or Present Illness: HPI: 69-year-old male returns for follow-up status post medication management oxycodone. Patient reports doing very well with this with good control of pain to about 70% or so without any significant side effects. Patient reports still pain in the low back and occasionally in the lower extremities but very tolerable with the medication regimen he is on we did decrease his amount monthly a few months ago and he is doing well with this by his report initially was increased pain but now is suggested. To most activities. Patient reports he still wakes him from sleep occasionally but only very rarely pain low back itself described as constant cramping and aching in the back and in the lower extremities. Patient had interventional techniques in the past but was not very successful and is not interested in pursuing these once again. Patient rates his pain a 7 on scale 10 at its worst over the past week 7 on average and a 5 at its least. Patient reports no new motor or sensory deficits no new bowel or bladder incontinence or other complaints. Physical Exam: VS: Blood pressure is 117/77 pulse 78 respirations 18 temperature 98.6 3 Fahrenheit weight 145 pounds PE: PHYSICAL EXAMINATION: GENERAL: The patient is awake, alert, oriented, appropriate, very pleasant in demeanor HEENT: Shows normocephalic, atraumatic. Extraocular movements are intact and symmetrical. Oral cavity: Mucous membranes moist and pink. Dentition is intac t. NECK: Shows anterior throat supple without palpable lymphadenopathy noted. CHEST: Shows normal on inspection. Breath sounds are clear bilaterally. HEART: Shows S1, S2 clear. No murmurs auscultated. ABDOMEN: Soft, nontender, nondistended. BACK: Shows spine grossly in the midline. Normal-appearing cervical lordotic curvature. There is increased thoracic kyphosis, some flattening of the lumbar lordotic curvature. Well-healed midline surgical scar is noted. Lumbar paraspinous muscles show symmetrical on inspection, on palpation shows moderate tenderness diffusely throughout the upper, middle and lower distribution of the paraspinous muscles, but without specific trigger points, without radiation of pain. The patient has good rotational motion of the lumbar spine, both laterally as well as extension and flexion without significant difficulty. EXTREMITIES: Lower extremities show deep tendon reflexes 1 in the patellar and tendo calcaneus tendons. Motor exam is 4 on a scale of 5 with right dorsiflexion, extension, quadriceps and hamstring flexion and 4/5 on the left. Peripheral pulses are 1+ posterior tibial. No peripheral edema is noted bilaterally. Lower extremities are warm and dry. SKIN: Shows warm and dry, good turgor. No edema. No sores, rashes or bruising throughout. Procedure: Procedure: Options were discussed with patient. Patient's old chart was usually his current medication regimen updated current review of systems updated today as well. We will refill patient's oxycodone at 10 mg for 100 tablets per 30-day period. Patient has been on very stable regimen has had appropriate K tracks reporting as well as appropriate urinalyses to date and we will make this a 2- month prescription for follow-up. Patient given instructions well side effects beware of the medications and will follow up as scheduled, or sooner as necessary. Medication Injected: Med Injected: None Condition at Discharge: Condition at Discharge: Condition at discharge is stable. JUAN NINA MD Aug 15, 2020 13:23
== END | disposition home or self-care (01) ==
LOC: PNCL 12:56
PROVIDERS: ATTEND Anesthesiology
DX: M54.16 Radiculopathy, lumbar region (principal); M96.1 Postlaminectomy syndrome, not elsewhere classified; Z79.82 Long term (current) use of aspirin; Z79.899 Other long term (current) drug therapy
CPT/HCPCS: 99212; G0463

== ENCOUNTER → 2020-10-10 | Outpatient (CLI) | payer OTHER ==
[~2020-10-10] MED LIST changes: -LISI2.5T PO; +LISI2.5T12 PO
--- NOTE | 2020-10-10 13:21 | PDOC ---
Progress Note - Pain Clinic Date of Service: DOS: DATE: 10/10/20 TIME: 13:17 Diagnosis: Dx: Lumbar radiculopathy with lumbar postlaminectomy syndrome History or Present Illness: HPI: 69-year-old male returns for follow-up status post medication management with oxycodone. Patient reports has been doing very well is been a very stable regimen with the medication without any side effects. Patient reports still significant pain in the low back and into the bilateral lower extremities, but fairly well controlled. Patient reports his pain levels reduced to about 70% of his original value with medications still increased with increased activity or standing for prolonged periods but is fairly well controlled and he watches activity fairly closely. Patient reports he is sleeping well at night generally does not awaken him from sleep has been increase activity with greater distance walking doing household activities as well as try with greater ease. Patient rates his pain as a 6 on scale 10 is worse over the past week 5 on average 5-6 is a 5 today. Patient reports is aching can be unbearable at times but only if he overdoes it and we will continue to avoid this. Patient reports no new motor or sensory deficits no bowel or bladder incontinence and again no side effects with the medication. Physical Exam: VS: Blood pressure is 117/84 pulse 80 respirations 18 temperature 98.4 F weight is 145 pounds PE: PHYSICAL EXAMINATION: GENERAL: The patient is awake, alert, oriented, appropriate, very pleasant in demeanor HEENT: Shows normocephalic, atraumatic. Extraocular movements are intact and symmetrical. Oral cavity: Mucous membranes moist and pink. NECK: Shows anterior throat supple without palpable lymphadenopathy noted. Swallow reflex symmetrical. CHEST: Shows normal on inspection. Breath sounds are clear bilaterally, distant but no rales rhonchi or wheezes auscultated. HEART: Shows S1, S2 clear. No murmurs auscultated. ABDOMEN: Soft, nontender, nondistended. No palpable organomegaly is noted. BACK: Shows spine grossly in the midline. Normal-appearing cervical lordotic curvature. There is increased thoracic kyphosis, some flattening of the lumbar lordotic curvature, with well-healed surgical scar noted. Lumbar paraspinous muscles show symmetrical on inspection, on palpation shows some moderate tenderness diffusely throughout the upper, middle and lower distribution of the paraspinous muscles, but without specific trigger points, without radiation of pain. The patient has good rotational motion of the lumbar spine, both laterally as well as extension and flexion without significant difficulty. No tenderness over the spinous processes, sacrum or sacroiliac regions. EXTREMITIES: Lower extremities show deep tendon reflexes 1+ in the patellar and tendo calcaneus tendons. Motor exam is 4 on a scale of 5 with right dorsiflexion, extension, quadriceps and hamstring flexion and 4/5 on the left. Peripheral pulses are 1+ posterior tibial. No peripheral edema is noted bilaterally. Lower extremities are warm and dry. SKIN: Shows warm and dry, good turgor. No edema. No sores, rashes or bruising throughout. Procedure: Procedure: Options discussed with the patient. Patient chart was reviewed his his current medication regimen updated current review of systems updated today as well. We will refill patient's medication as he had appropriate K tracks reporting as well as appropriate urinalyses to date. Patient was given instructions well side effects aware with the medications and will follow up in approximately 4 weeks as scheduled. Medication Injected: Med Injected: None Condition at Discharge: Condition at Discharge: Condition at discharge is stable. JUAN NINA MD Oct 10, 2020 13:21
== END | disposition home or self-care (01) ==
LOC: PNCL 12:41
PROVIDERS: ATTEND Anesthesiology
DX: M96.1 Postlaminectomy syndrome, not elsewhere classified (principal); M54.16 Radiculopathy, lumbar region; Z79.82 Long term (current) use of aspirin; Z79.899 Other long term (current) drug therapy; Z88.8 Allergy status to other drugs, medicaments and biological substances
CPT/HCPCS: 99212; G0463

== ENCOUNTER → 2020-11-14 | Outpatient (CLI) | payer OTHER ==
--- NOTE | 2020-11-14 15:59 | PDOC ---
Progress Note - Pain Clinic Date of Service: DOS: DATE: 11/14/20 TIME: 15:58 Diagnosis: Dx: Lumbar radiculopathy with lumbar postlaminectomy syndrome History or Present Illness: HPI: Telemedicine visit today with patient identity verified with date of and full name. Total time spent: 11 minutes 70-year-old male via telemedicine visit today requesting refill of oxycodone patient reports he has been doing fairly well with very good results with the medication in controlling his pain. Patient reports he is still watching his activity fairly closely and does not over exert himself to keep the pain under good control. Patient is having no side effect from medication currently has had appropriate K tracks reporting as well as urinalyses to date. We'll refill patient's medication via electronic prescription oxycodone 10 mg. Patient was again given instructions well side effects aware with the medication will follow up in approximate 4 weeks as scheduled. Physical Exam: PE: JUAN NINA MD Nov 14, 2020 15:59
== END | disposition home or self-care (01) ==
LOC: PNCL 15:05
PROVIDERS: ATTEND Anesthesiology
DX: M54.16 Radiculopathy, lumbar region (principal); M96.1 Postlaminectomy syndrome, not elsewhere classified; Z79.82 Long term (current) use of aspirin; Z79.899 Other long term (current) drug therapy; Z88.0 Allergy status to penicillin; Z88.2 Allergy status to sulfonamides; Z88.8 Allergy status to other drugs, medicaments and biological substances
CPT/HCPCS: G0463

== ENCOUNTER → 2020-12-31 | Outpatient (CLI) | payer OTHER ==
--- NOTE | 2020-12-31 12:36 | PDOC ---
Progress Note - Pain Clinic Date of Service: DOS: DATE: 12/31/20 TIME: 12:29 Diagnosis: Dx: Lumbar radiculopathy with lumbar postlaminectomy syndrome History or Present Illness: HPI: 70-year-old male returns for follow-up status post medication management with oxycodone 10 mg oral. Patient reports he is doing very well with this has been on a very stable regimen with the medications and has had appropriate urinalyses as well as appropriate K tracks reporting to this date. Patient reports still having pain in the low back region 7 on scale 10 is worse over the past week 5 on average 5 its least is a 5 today patient reports is pain is well controlled with medications by about 70 to 80% most days patient reports some recent cold weather the pain is been somewhat more noticeable but is doing better today patient reports it is in the low back and radiating occasionally to the lower extremities posterior gluteus and posterior thighs and lateral thighs patient reports its aching pain worse with walking standing changing positions getting up from a seated position once he is up and around he feels somewhat better when he is moving. Patient reports awakening from sleep very rarely feels much better laying down or sitting most times. Patient reports no bowel or bladder incontinence no motor deficits. Physical Exam: VS: Blood pressure is 108/75 pulse 88 respirations 16 temperature is 98.4 F height is 6 feet 3 inches weight is 144 pounds PE: PHYSICAL EXAMINATION: GENERAL: The patient is awake, alert, oriented, appropriate, very pleasant in demeanor HEENT: Shows normocephalic, atraumatic. Extraocular movements are intact and symmetrical. Oral cavity: Mucous membranes moist and pink. NECK: Shows anterior throat supple without palpable lymphadenopathy noted. CHEST: Shows normal on inspection. Breath sounds are clear bilaterally, distant, but no rales rhonchi or wheezes auscultated. HEART: Shows S1, S2 clear. No murmurs auscultated. ABDOMEN: Soft, nontender, nondistended. No palpable organomegaly is noted. BACK: Shows spine grossly in the midline. Normal-appearing cervical lordotic curvature. There is slightly increased thoracic kyphosis, some flattening of the lumbar lordotic curvature with well-healed surgical scar noted. Lumbar paraspinous muscles show symmetrical on inspection, on palpation shows some moderate tenderness diffusely throughout the upper, middle and lower distribution of the paraspinous muscles, but without specific trigger points, without radiation of pain. The patient has good rotational motion of the lumbar spine, both laterally as well as extension and flexion without significant difficulty. No tenderness over the spinous processes, sacrum or sacroiliac regions. EXTREMITIES: Lower extremities show deep tendon reflexes 1+ in the patellar and tendo calcaneus tendons. Motor exam is 4 on a scale of 5 with right dorsiflexion, extension, quadriceps and hamstring flexion and 4/5 on the left. Peripheral pulses are 1+ posterior tibial. No peripheral edema is noted bilaterally. Lower extremities are warm and dry to touch, equal in color and appearance. SKIN: Shows warm and dry, good turgor. No edema. No sores, rashes or bruising throughout. Procedure: Procedure: Options were discussed with the patient. Patient's old chart was reviewed as his current medication regimen updated current review of systems updated today as well. Patient has had appropriate K tracks reporting to date as well as appropriate urinalyses to date. We will have a urinalysis drawn today as part of routine screening. Patient is narcotic contract are also be renewed as well and patient was given a copy for his records. Patient will have oxycodone 10 electronically prescribed 100 tablets and was given instructions well side effects to be aware of with the medication. Patient will follow up in approximately 4 weeks as scheduled. Medication Injected: Med Injected: None Condition at Discharge: Condition at Discharge: Condition at discharge is stable. JUAN NINA MD Dec 31, 2020 12:36
== END | disposition home or self-care (01) ==
LOC: PNCL 11:19
PROVIDERS: ATTEND Anesthesiology
DX: M54.16 Radiculopathy, lumbar region (principal); M96.1 Postlaminectomy syndrome, not elsewhere classified; Z79.82 Long term (current) use of aspirin; Z79.899 Other long term (current) drug therapy; Z88.0 Allergy status to penicillin; Z88.8 Allergy status to other drugs, medicaments and biological substances
CPT/HCPCS: 99212; G0463

== ENCOUNTER → 2021-02-20 | Outpatient (CLI) | payer OTHER ==
--- NOTE | 2021-02-20 15:20 | PDOC ---
Progress Note - Pain Clinic Date of Service: DOS: DATE: 02/20/21 TIME: 15:16 Diagnosis: Dx: Lumbar radiculopathy with lumbar degenerative disease lumbar postlaminectomy syndrome History or Present Illness: HPI: 70-year-old male returns for follow-up status post medication management oxycodone 10 mg. Patient reports he is doing very well despite very stable regimen patient is somewhat confused about when times to have his medications refilled we had him come in person today to discuss this as we have discussed with him over the phone several times over the past month and he is sure of how the refill would work. Patient voices very clear understanding today in person regarding a 30-day refill and electronic prescribing with the medications. Patient reports still pain low back as has been previously but very well controlled with medication without any side effects patient reports at least a 7075% improvement without any new problems or side effects patient reports pain is a 6 on scale 10 is worst 5 on average/and is a 6 today patient reports aching and shooting across the low back worse with activity walking standing changing positions patient is very busy as he goes to chemotherapy treatments as well as radiation treatments several times every week. Patient reports some throat swelling for 1 day after latest radiation treatment but otherwise no new findings or concerns. Patient with bladder incontinence and no constipation. Physical Exam: VS: Blood pressure is 122/76 pulse 96 respirations 18 temperature 98.3 F weight is 149 pounds. PE: PHYSICAL EXAMINATION: GENERAL: The patient is awake, alert, oriented, appropriate, very pleasant in demeanor HEENT: Shows normocephalic, atraumatic. Extraocular movements are intact and symmetrical. Oral cavity: Mucous membranes moist and pink. NECK: Shows anterior throat supple without palpable lymphadenopathy noted. Swallow reflex symmetrical. CHEST: Shows normal on inspection. Breath sounds are clear bilaterally, distant but no rales or rhonchi. HEART: Shows S1, S2 clear. No murmurs auscultated. ABDOMEN: Soft, nontender, nondistended. No palpable organomegaly is noted. BACK: Shows spine grossly in the midline. Normal-appearing cervical lordotic curvature. There is slightly increased thoracic kyphosis, some flattening of the lumbar lordotic curvature. Lumbar paraspinous muscles show symmetrical on inspection, on palpation shows some moderate tenderness diffusely throughout the upper, middle and lower distribution of the paraspinous muscles without specific trigger points, without radiation of pain. The patient has good rotational motion of the lumbar spine, both laterally as well as extension and flexion without significant difficulty. No tenderness over the spinous processes, sacrum or sacroiliac regions. EXTREMITIES: Lower extremities show deep tendon reflexes 1+ in the patellar and tendo calcaneus tendons. Motor exam is 4 on a scale of 5 with right dorsiflexion, extension, quadriceps and hamstring flexion and 4/5 on the left. Peripheral pulses are 1+ posterior tibial. No peripheral edema is noted bilaterally. Lower extremities are warm and dry. SKIN: Shows warm and dry, good turgor. No edema. No sores, rashes or bruising throughout. Procedure: Procedure: Options discussed with patient. Patient chart was reviewed his current medication regimen updated current review of systems updated today as well. We will refill patient's oxycodone 10 mg patient was given instructions well side effects beware with the medication. Medication will be electronically prescribed and patient will follow up in approximate 30 days as scheduled. Medication Injected: Med Injected: None Condition at Discharge: Condition at Discharge: Condition at discharge is stable. JUAN NINA MD Feb 20, 2021 15:20
== END | disposition home or self-care (01) ==
LOC: PNCL 13:56
PROVIDERS: ATTEND Anesthesiology
DX: M51.16 Intervertebral disc disorders with radiculopathy, lumbar region (principal); M96.1 Postlaminectomy syndrome, not elsewhere classified; Z79.82 Long term (current) use of aspirin; Z79.899 Other long term (current) drug therapy; Z88.0 Allergy status to penicillin; Z88.8 Allergy status to other drugs, medicaments and biological substances
CPT/HCPCS: 99212; G0463

== ENCOUNTER → 2021-03-17 | Outpatient (CLI) | payer OTHER ==
--- NOTE | 2021-03-17 12:15 | NUR ---
Patient called requesting a refill on oxycodone. Verified name, , Pharmacy, medications, and next appointment. Patient states his pain is around a 6 most days but can get to a 10 with alot of activity. Patient denies any new medical problems, Allergies, or constipation. Ktracts checked and is appropriate. Call transferred to Dr Mendoza.
--- NOTE | 2021-03-17 14:34 | PDOC ---
Progress Note - Pain Clinic Date of Service: DOS: DATE: 03/17/21 TIME: 14:32 Diagnosis: Dx: Lumbar radiculopathy with lumbar degenerative disease and lumbar postlaminectomy syndrome History or Present Illness: HPI: Telemedicine visit today with patient's identity verified with full name as well as full date of , total time spent, 12 minutes 70-year-old male via telemedicine visit for refill request of oxycodone patient reports he is doing very well with this is been on very stable regimen and tolerates the medicine very well without any side effects patient reports about 70 to 75% improvement as he has had with his medication for prolonged. Patient reports his level of pain is about a 6-10 is worse but he is generally able to avoid most activities which will exacerbate it on his day-to-day basis. Patient reports no new findings no new deficits no bowel or bladder incontinence. Patient is appropriately 40 as well as appropriate urinalyses as well to date. We discussed options with the patient and we will refill patient's medication for 30-day time period. Patient was given instructions as well as side effects aware with the medication. Patient will follow up in approximately 30 days as scheduled. Physical Exam: PE: JUAN NINA MD Mar 17, 2021 14:34
== END | disposition home or self-care (01) ==
LOC: PNCL 11:00
PROVIDERS: ATTEND Anesthesiology
DX: M51.16 Intervertebral disc disorders with radiculopathy, lumbar region (principal); M96.1 Postlaminectomy syndrome, not elsewhere classified; Z79.82 Long term (current) use of aspirin; Z79.899 Other long term (current) drug therapy; Z88.0 Allergy status to penicillin; Z88.1 Allergy status to other antibiotic agents
CPT/HCPCS: 99212; G0463

== ENCOUNTER → 2021-04-17 | Outpatient (CLI) | payer OTHER ==
--- NOTE | 2021-04-17 09:20 | PDOC ---
Progress Note - Pain Clinic Date of Service: DOS: DATE: 04/17/21 TIME: 09:16 Diagnosis: Dx: Lumbar radiculopathy with lumbar degenerative disease and lumbar postlaminectomy syndrome Osteoarthritis History or Present Illness: HPI: 70-year-old male returns for follow-up status post medication management with oxycodone 10 mg. Patient reports he has been doing very well with his been on very stable regimen reports improvement in pain by about 75% with the medication without any significant side effects. Patient reports occasional constipation but well controlled with [id number] remedies. Patient reports pain is across the low back into the bilateral lower extremities mostly the posterior gluteus and thighs also in the lateral thighs with extended standing or walking patient reports he is able to control his activity though and anticipate any activities that might exacerbate the pain and avoid those for the most part. Patient reports he is sleeping well at night does not generally awaken from sleep rates his pain as a 7 on scale 10 is worse over the past week 6 on average 5 its least and is a 5 today patient scribes aching and stabbing in the back can be severe and constant with standing and walking again sitting much relief as well as with laying down has much relief. Patient reports no bowel or bladder incontinence. Physical Exam: VS: Blood pressure is 108/74 pulse 85 respirations 18 temperature 98.7 F height 6 feet 3 inches weight 147 pounds. PE: PHYSICAL EXAMINATION: GENERAL: The patient is awake, alert, oriented, appropriate, very pleasant in demeanor HEENT: Shows normocephalic, atraumatic. Extraocular movements are intact and symmetrical. Oral cavity: Mucous membranes moist and pink. NECK: Shows anterior throat supple without palpable lymphadenopathy noted. Swallow reflex symmetrical. CHEST: Shows normal on inspection. Breath sounds are clear bilaterally, distant and coarse but no rales or rhonchi auscultated. HEART: Shows S1, S2 clear. No murmurs auscultated. ABDOMEN: Soft, nontender, nondistended. No palpable organomegaly is noted. BACK: Shows spine grossly in the midline. Normal-appearing cervical lordotic curvature. There is slightly increased thoracic kyphosis, some minor flattening of the lumbar lordotic curvature. Lumbar paraspinous muscles show symmetrical on inspection, on palpation shows some moderate tenderness diffusely throughout the upper, middle and lower distribution of the paraspinous muscles, without specific trigger points, without radiation of pain. The patient has good rotational motion of the lumbar spine, both laterally as well as extension and flexion with some moderate tenderness with extension but not with forward flexion right left lateral rotation with mild tenderness as well but without radiation bilaterally. No tenderness over the spinous processes, sacrum or sacroiliac regions. EXTREMITIES: Lower extremities show deep tendon reflexes 1+ in the patellar and tendo calcaneus tendons. Motor exam is 4 on a scale of 5 with right dorsiflexion, extension, quadriceps and hamstring flexion and 4/5 on the left. Peripheral pulses are 1+ posterior tibial. No peripheral edema is noted bilaterally. Lower extremities are warm and dry. SKIN: Shows warm and dry, good turgor. No edema. No sores, rashes or bruising throughout. Procedure: Procedure: Options were discussed with the patient. Patient chart was reviewed his current medication regimen updated current review of systems updated today as well. We will prescribe oxycodone 10 mg with instructions side effects to be aware of discussed with the patient. Patient has had appropriate K tracks report as well as appropriate urinalyses to date as well and will make this a 30-day supply. Patient follow-up in approximate 30 days as scheduled. Medication Injected: Med Injected: None Condition at Discharge: Condition at Discharge: Condition at discharge is stable. JUAN NINA MD Apr 17, 2021 09:20
== END | disposition home or self-care (01) ==
LOC: PNCL 08:51
PROVIDERS: ATTEND Anesthesiology
DX: M51.16 Intervertebral disc disorders with radiculopathy, lumbar region (principal); M96.1 Postlaminectomy syndrome, not elsewhere classified; M19.90 Unspecified osteoarthritis, unspecified site; Z79.82 Long term (current) use of aspirin; Z79.899 Other long term (current) drug therapy; Z88.0 Allergy status to penicillin; Z88.8 Allergy status to other drugs, medicaments and biological substances
CPT/HCPCS: 99212; G0463

== ENCOUNTER 2021-04-23 21:43 | Inpatient (IN) | payer MEDICARE, MEDICAID ==
[~2021-04-23] VITALS: Ht 190.5 cm; Wt 63.1 kg
[2021-04-23] MEDS ORDERED: DEXAMETHASONE SOD PHOS 20 MG/5 ML VIAL. IV ONE (21:45)
[2021-04-23] MEDS ORDERED: IPRATRPIUM/ALBUTEROL 0.5/2.5MG 3 ML NEBU. NEB ONE (21:45)
[2021-04-23] MEDS ORDERED: IV NORMAL SALINE 1000ML BAG 1,000 ML IV SCH (21:45)
[2021-04-23] MEDS ORDERED: IV NORMAL SALINE 1000ML BAG 1,000 ML IV ONE (21:45)
--- NOTE | 2021-04-23 21:55 | PHYS DOC ---
General Adult HPI: HPI: 70-year-old male past medical history of lung cancer? (per ems) presents to the ED brought in by EMS with concern for rapid breathing and hypoxia with oxygen in the 70s. EMS was called previously today and provided a breathing treatment to patient who refused to come to the hospital for medical evaluation. History is limited due to patient's respiratory distress. EMR was reviewed-[facility] tobacco use, osteoarthritis and chronic back pain, takes oxycodone via pain clinic. Review of Systems: Review of Systems: ROS: Due to patient's medical condition and respiratory distress Heart Score: C/O Chest Pain: N/A Risk Factors: Risk Factors: DM, Current or recent (<one month) smoker, HTN, HLP, family history of CAD, obesity. Risk Scores: Score 0 - 3: 2.5% MACE over next 6 weeks - Discharge Home Score 4 - 6: 20.3% MACE over next 6 weeks - Admit for Clinical Observation Score 7 - 10: 72.7% MACE over next 6 weeks - Early Invasive Strategies Current Medications: Current Medications Medications (Trade) Dose Ordered Sig/All Start Time Stop Time Status Last Admin Dose Admin Dexamethasone Sodium Phosphate (Decadron) 10 mg 1X ONCE 04/23/21 21:45 04/23/21 21:46 UNV Sodium Chloride 1,000 ml @ 1,000 mls/hr Q1H 04/23/21 21:45 04/23/21 22:44 UNV Allergies: Allergies: Allergies Coded Allergies Type Severity Reaction Last Updated Verified NSAIDS (Non-Steroidal Anti-Inflamma Allergy Intermediate 04/19/13 Yes Penicillins Allergy Unknown unknown 03/30/19 Yes aspirin Adverse Reaction Unknown can take low dose 81 mg 02/19/17 Yes Physical Exam: PE: Constitutional: Afebrile, thin/tall, HENT: Normocephalic, atraumatic, dry mucous membranes Eyes: EOMI, conjunctiva normal, no discharge, Neck: Normal range of motion, supple, JVD present Cardiovascular: S1/2 present, tachycardic Lungs & Thorax: Not speaking due to significant respiratory distress with sternal and subcostal retractions, placed on BiPAP, bilateral equal chest rise, Expiratory wheezing Abdomen: soft, no tenderness, Skin: Warm, dry, no erythema, no rash. [] Back: Vertical scar over lumbar spine, no midline spinal step-offs Extremities: No tenderness, no cyanosis, Neurologic: Alert-can say his name but communication is limited due to breathing effort, moves all 4 extremities n, no focal deficits noted. [] Psychologic: No agitation, normal affect EKG: EKG: Sinus tachycardia 134 bpm, no axis deviation, normal intervals, poor baseline EKG, cannot appreciate any ST elevations Radiology/Procedures: Radiology/Procedures: IMAGING REPORT Signed PATIENT: ARNULFO DOYLE ACCOUNT: [id number] : 1950 LOCATION: ER AGE: 70 SEX: M EXAM STATUS: PRE ER ORD. PHYSICIAN: GRUPO VERONICA DO REASON: soa PROCEDURE: PORTABLE CHEST 1V Exam: Chest one view INDICATION: Short of air TECHNIQUE: Frontal view of the chest Comparisons: None FINDINGS: The cardiomediastinal silhouette and pulmonary vessels are within normal limits. The lung and pleural spaces are clear. Linear density at the left upper lung. IMPRESSION: Linear density at the left upper lung favored represent skinfold. Consider repeat radiograph to definitively exclude pneumothorax FOR INTERNAL CODING PURPOSES Critical result: Findings discussed with GRUPO VERONICA DO at 04/23/2021 10:26 PM. RESULT CODE: (C) Electronically signed by: Courtney Magana MD (04/23/2021 10:26 PM) [facility] DICTATED and SIGNED BY: COURTNEY MAGANA MD DATE: 04/23/21 [id number] IMAGING REPORT Signed PATIENT: ARNULFO DOYLE ACCOUNT: [id number] : 1950 LOCATION: [address] [place] [address] AGE: 70 SEX: M EXAM STATUS: ADM IN ORD. PHYSICIAN: GRUPO VERONICA DO REASON: confusion UNCOOPERATIVE FOR CT PROCEDURE: CT HEAD WO CONTRAST EXAM: CT head without contrast INDICATION: Confusion COMPARISON: None TECHNIQUE: Axial CT imaging through the head without intravenous contrast. Sagittal and coronal reformats were obtained. One or more of the following individualized dose reduction techniques were utilized for this examination: 1. Automated exposure control 2. Adjustment of the mA and/or kV according to patient size 3. Use of iterative reconstruction technique. FINDINGS: The ventricles and sulci are mildly enlarged. There is mild periventricular and patchy deep white matter hypoattenuation. No intracranial hemorrhage, acute infarct, or mass lesion. The skull is intact. There is near complete opacification of the left maxillary sinus with some hyperdense material, and mild mucosal thickening in the ethmoid air cells and frontal sinuses. Small osteoma in the anterior left ethmoid air cells. Mastoid air cells are clear. Fractures of the left maxillary sinus palumbo anteriorly and posteriorly, without significant soft tissue swelling. IMPRESSION: 1. No acute intracranial abnormality. 2. Left maxillary sinus wall fractures, possibly old. 3. Chronic left maxillary sinusitis. Electronically signed by: Gina Sultana MD (04/24/2021 12:33 AM) [facility] DICTATED and SIGNED BY: GINA SULTANA MD DATE: 04/24/21 [id number] IMAGING REPORT Signed PATIENT: ARNULFO DOYLE ACCOUNT: [id number] : 1950 LOCATION: [address] [place] [address] AGE: 70 SEX: M EXAM STATUS: ADM IN ORD. PHYSICIAN: GRUPO VERONICA DO REASON: soa, r/o pe PROCEDURE: CT ANGIOGRAPHY CHEST Study: CT CHEST WITH CONTRAST - PULMONARY ANGIOGRAM History: Shortness of air, rule out PE Comparison: None Technique: Helical CT of the chest performed after the administration of 100 mL Omnipaque 350 intravenous contrast and timed for angiographic evaluation of the pulmonary arteries per PE protocol. Coronal and sagittal 3D MIP reformations were obtained. One or more of the following individualized dose reduction techniques were utilized for this examination: 1. Automated exposure control 2. Adjustment of the mA and/or kV according to patient size 3. Use of iterative reconstruction technique. Findings: Pulmonary Arteries: Contrast bolus is adequate. The exam is limited by motion artifact, particularly in the right lung base.. There is no definite acute pulmonary embolism. Heart/Systemic Vasculature: Heart is normal in size. No pericardial effusion. There are coronary artery calcifications. The thoracic aorta is normal in caliber. No aortic dissection. Mediastinum: No lymphadenopathy. Lungs: Evaluation of the lungs is limited due to motion artifact. There is airway wall thickening, greatest in the right middle and lower lobe. There is a calcified granuloma in the right upper lobe. No pleural effusion. Neck/Axilla/Body Wall: No axillary lymphadenopathy. Upper Abdomen: The stomach is distended with gas. There is a 4.4 cm circumscribed cystic lesion in or immediately adjacent to the spleen, incompletely evaluated. Bones: No acute osseous abnormality. Mild degenerative disc disease. IMPRESSION: 1. Mildly limited exam due to motion artifact. No acute pulmonary embolism. 2. Mild airway wall thickening, nonspecific but can be seen with small airways disease including bronchiolitis. 3. Gaseous distention of stomach. 4. 4.4 cm circumscribed cystic lesion in or immediately adjacent to the spleen, incompletely evaluated. Electronically signed by: Gina Sultana MD (04/24/2021 12:41 AM) [facility] DICTATED and SIGNED BY: GINA SULTANA MD DATE: 04/24/21 [id number] Course & Med Decision Making: Course & Med Decision Making Pertinent Labs and Imaging studies reviewed. (See chart for details) Concern for acute hypoxic respiratory failure with COPD exacerbation, requiring BiPAP on arrival. Patient also has sepsis secondary to chronic sinusitis and influenza A. Was treated with antibiotics, IV fluids, steroids, breathing treatments and Tamiflu. Will admit for further medical management. Patient s table time admission agrees with this plan. The patient has been stabilized within the capability of the emergency department. The patient will be transported for further care and management or will be moved to an observation or inpatient service. I have communicated with the staff or medical practitioner taking over this patient's care. Uriel Disclaimer: Uriel Disclaimer: This electronic medical record was generated, in whole or in part, using a voice recognition dictation system. Departure Departure Impression: Primary Impression: Respiratory failure, acute Additional Impressions: COPD with exacerbation Sepsis Influenza A Chronic sinusitis Disposition: ADMITTED INPATIENT Admitting Physician: ROSA (Dr. Chavez) Condition: GUARDED Referrals: NO PCP (PCP) GRUPO VERONICA DO Apr 23, 2021 21:55
[2021-04-23] MEDS ORDERED: cefTRIAXone IV Push 1 GM VIAL. IVP ONE (22:00)
[2021-04-23 22:10] LABS: BASO % 0 % (0-3); EOS % 0 % (0-3); HEMATOCRIT 31.8 % (39.0-53.0); HEMOGLOBIN 10.7 g/dL (13.0-17.5); LYMPH # 0.8 x10^3/uL (1.0-4.8); LYMPH % 12 % (24-48); MEAN CORPUSCULAR HEMOGLOBIN 32 pg (25-35); MEAN CORPUSCULAR HGB CONC 34 g/dL (31-37); MEAN CORPUSCULAR VOLUME 95 fL (79-100); MONO # 1.3 x10^3/uL (0.0-1.1); MONO % 21 % (0-9); NEUT # 4.2 x10^3/uL (1.8-7.7); NEUT % 67 % (31-73); PLATELET COUNT 266 x10^3/uL (140-400); RED BLOOD COUNT 3.35 x10^6/uL (4.30-5.70); RED CELL DISTRIBUTION WIDTH 15.1 % (11.5-14.5); WHITE BLOOD COUNT 6.3 x10^3/uL (4.0-11.0)
[2021-04-23] MEDS ORDERED: ACETAMINOPHEN 650 MG SUPP.RECT. PR ONE (22:15)
--- NOTE | 2021-04-23 22:29 | RAD ---
Exam: Chest one view INDICATION: Short of air TECHNIQUE: Frontal view of the chest Comparisons: None FINDINGS: The cardiomediastinal silhouette and pulmonary vessels are within normal limits. The lung and pleural spaces are clear. Linear density at the left upper lung. IMPRESSION: Linear density at the left upper lung favored represent skinfold. Consider repeat radiograph to defin itively exclude pneumothorax FOR INTERNAL CODING PURPOSES Critical result: Findings discussed with GRUPO VERONICA DO at 04/23/2021 10:26 PM. RESULT CODE: (C) Electronically signed by: Courtney Brandt MD (04/23/2021 10:26 PM) [facility]
[2021-04-23 22:38] LABS: BASE EXCESS ABG -3 mmol/L (-3-3); HCO3 ABG 25 mmol/L (21-28); PCO2 ABG 59 mmHg (35-46); PO2 ABG 487 mmHg (65-108); SAT O2 ABG 99 % (92-99)
[2021-04-23 22:56] LABS: AMPHETAMINE/METHAMPHETAMINE NEG (NEG); BARBITURATES NEG (NEG); BENZODIAZEPINES NEG (NEG); CANNABINOIDS NEG (NEG); COCAINE NEG (NEG); METHADONE NEG (NEG); OPIATES NEG (NEG); PHENCYCLIDINE NEG (NEG)
[2021-04-23 23:05] LABS: CALCIUM 7.2 mg/dL (8.5-10.1); CREATININE 0.9 mg/dL (0.7-1.3); GFR 101.2; POTASSIUM 4.8 mmol/L (3.5-5.1)
[2021-04-23 23:08] LABS: FIO2 ABG 100
[2021-04-23 23:17] LABS: ALBUMIN 3.1 g/dL (3.4-5.0); MAGNESIUM 0.8 mg/dL (1.8-2.4); TOTAL BILIRUBIN 0.4 mg/dL (0.2-1.0); TOTAL PROTEIN 6.3 g/dL (6.4-8.2)
[2021-04-23 23:18] LABS: BILIRUBIN,URINE NEGATIVE (NEG); CLARITY,URINE CLEAR; COLOR,URINE YELLOW; NITRITE,URINE NEGATIVE (NEG); PROTEIN,URINE >=300 mg/dL (NEG-TRACE); UROBILINOGEN,URINE 0.2 mg/dL (0.2 mg/dL)
[2021-04-23 23:19] LABS: BACTERIA,URINE 0 /HPF (0-FEW); HYALINE CASTS, URINE OCCASIONAL /HPF; RBC,URINE OCC /HPF (0-2); WBC,URINE OCC /HPF (0-4)
[2021-04-23] MEDS ORDERED: CONTRAST GIVEN. MC PRN (23:30)
[2021-04-23] MEDS ORDERED: IOHEXOL 350 MG/ML 100 ML VIAL. IV ONE (23:30)
--- NOTE | 2021-04-24 00:36 | RAD ---
EXAM: CT head without contrast INDICATION: Confusion COMPARISON: None TECHNIQUE: Axial CT imaging through the head without intravenous contrast. Sagittal and coronal refor mats were obtained. One or more of the following individualized dose reduction techniques were utilized for this examinat ion: 1. Automated exposure control 2. Adjustment of the mA and/or kV according to patient size 3. Use of iterative reconstruction technique. FINDINGS: The ventricles and sulci are mildly enlarged. There is mild periventricular and patchy deep white mat ter hypoattenuation. No intracranial hemorrhage, acute infarct, or mass lesion. The skull is intact. There is near complete opacification of the left maxillary sinus with some hyperdense material, and m ild mucosal thickening in the ethmoid air cells and frontal sinuses. Small osteoma in the anterior le ft ethmoid air cells. Mastoid air cells are clear. Fractures of the left maxillary sinus palumbo anteri kwesi and posteriorly, without significant soft tissue swelling. IMPRESSION: 1. No acute intracranial abnormality. 2. Left maxillary sinus wall fractures, possibly old. 3. Chronic left maxillary sinusitis. Electronically signed by: Gina Sultana MD (04/24/2021 12:33 AM) [facility]
--- NOTE | 2021-04-24 00:43 | RAD ---
Study: CT CHEST WITH CONTRAST - PULMONARY ANGIOGRAM History: Shortness of air, rule out PE Comparison: None Technique: Helical CT of the chest performed after the administration of 100 mL Omnipaque 350 intrav enous contrast and timed for angiographic evaluation of the pulmonary arteries per PE protocol. Coron al and sagittal 3D MIP reformations were obtained. One or more of the following individualized dose reduction techniques were utilized for this examinat ion: 1. Automated exposure control 2. Adjustment of the mA and/or kV according to patient size 3. Use of iterative reconstruction technique. Findings: Pulmonary Arteries: Contrast bolus is adequate. The exam is limited by motion artifact, particularly in the right lung base.. There is no definite acute pulmonary embolism. Heart/Systemic Vasculature: Heart is normal in size. No pericardial effusion. There are coronary jesse ry calcifications. The thoracic aorta is normal in caliber. No aortic dissection. Mediastinum: No lymphadenopathy. Lungs: Evaluation of the lungs is limited due to motion artifact. There is airway wall thickening, gr eatest in the right middle and lower lobe. There is a calcified granuloma in the right upper lobe. No pleural effusion. Neck/Axilla/Body Wall: No axillary lymphadenopathy. Upper Abdomen: The stomach is distended with gas. There is a 4.4 cm circumscribed cystic lesion in or immediately adjacent to the spleen, incompletely evaluated. Bones: No acute osseous abnormality. Mild degenerative disc disease. IMPRESSION: 1. Mildly limited exam due to motion artifact. No acute pulmonary embolism. 2. Mild airway wall thickening, nonspecific but can be seen with small airways disease including br onchiolitis. 3. Gaseous distention of stomach. 4. 4.4 cm circumscribed cystic lesion in or immediately adjacent to the spleen, incompletely evaluat ed. Electronically signed by: Gina Sultana MD (04/24/2021 12:41 AM) [facility]
[2021-04-24] MEDS ORDERED: DOXYCYCLINE HYCLATE 100 MG in IV DEXTROSE 5% 100ML 100 ML IV ONE (01:00)
[2021-04-24 01:01] LABS: PROTHROMBIN TIME PATIENT 13.8 SEC (11.7-14.0)
[2021-04-24 01:53] LABS: INFLUENZA A PATIENT POSITIVE (NEGATIVE); INFLUENZA B PATIENT NEGATIVE (NEGATIVE)
[2021-04-24 02:28] VITALS: BP 135/78
--- NOTE | 2021-04-24 03:01 | NUR ---
The patient, ARNULFO DOYLE, 70 y/o, M admitted by TANGELA HAMILTON MD, was given written information regarding hospital policies, unit procedures and contact persons. Valuables were checked. Pt arrived to unit per cart pt was able to ambulate from cart to bed with assist x2 pt alert and oriented x2 tele monitor applied vs obtained and stable pt is able to state name and where he is pt stated that he lives at home with his pt unable to give past medical history pt lethargic pt placed on bipap per RT. Assessment completed pt with coarse/wet lung sounds will place call to attending for further admit orders. Call light in reach bed alarm set will continue to monitor pt.
--- NOTE | 2021-04-24 03:27 | NUR ---
Dr. Chavez returned call orders received to bladder scan pt, May place marinelli if pt is retaining.
[2021-04-24] MEDS ORDERED: ACETAMINOPHEN 650 MG SUPP.RECT. PR PRN (03:30)
[2021-04-24 04:56] LABS: % BANDS 26 % (0-9); % LYMPHS 9 % (24-48); % MONOS 13 % (0-10); % SEGS 52 % (35-66); PLT ESTIMATE ADEQUATE (ADEQUATE)
[2021-04-24 07:00] VITALS: BP 117/78
[2021-04-24] MEDS: OSELTAMIVIR 75 MG CAPSULE PO SCH ×2 (09:26→21:28)
[2021-04-24] MEDS ORDERED: MAGNESIUM SULFATE 2GM 50 ML IV ONE (10:00)
[2021-04-24 11:00] VITALS: BP 124/90
[2021-04-24] MEDS: DOXYCYCLINE HYCLATE 100 MG in IV DEXTROSE 5% 100ML 100 ML IV SCH ×2 (11:33→21:32)
[2021-04-24] MEDS: methylPREDNISolone SOD SUCC PF 40 MG/ML VIAL. IV SCH ×2 (11:33→21:27)
[2021-04-24] MEDS: IPRATRPIUM/ALBUTEROL 0.5/2.5MG 3 ML NEBU. NEB SCH ×3 (11:34→20:18)
--- NOTE | 2021-04-24 11:37 | HP ---
DATE OF SERVICE: 04/24/2021 ADMIT DATE: 04/23/2021 CHIEF COMPLAINT: Hypoxia, tachypnea. HISTORY OF PRESENT ILLNESS: The patient is a pleasant 70-year-old male who, per EMS, may have a history of lung cancer. He presented via ambulance to ER, the EMS crew told the ER doctor that he had a history of lung cancer. Our imaging is not confirming that; however, the patient is quite hypoxic, he was placed on BiPAP and admitted to the telemetry floor where he is currently being examined. PAST MEDICAL HISTORY: Possible lung cancer, COPD question yesenia, arrhythmias, asthma, CHF, chronic pain, narcotic dependence, neuropathy. ALLERGIES: NSAIDs, PENICILLIN. FAMILY HISTORY: Coronary disease. SOCIAL HISTORY: Difficult to obtain as the patient is on BiPAP. I think he used to smoke. MEDICATIONS: Reviewed. He is on Spiriva, albuterol, digoxin, Coreg, aspirin, Fiorinal, oxycodone, gabapentin, vitamin B, and multiple vitamins. REVIEW OF SYSTEMS: Unable to obtain as the patient is on BiPAP. PHYSICAL EXAMINATION: VITALS: Within normal limits and are stable. GENERAL: He is semi-sedated on BiPAP. HEENT: Normal cephalic atraumatic, external auditory canals are patent EYES: Extraocular muscles are intact, pupils are equally round and reactive to light and accommodation MUSKULOSKELETAL: Well developed, well nourished, good range of motion ENDOCRINE: No thyromegaly was palpated LYMPHATICS: No cervical chain or axillary nodes were noted HEMATOPOIETIC: No bruising NECK: Supple, no JVD, no thyromegaly was noted. LUNGS: Decreased breath sounds with some crackles. The BiPAP is currently set at 16/6 with 40% FiO2, he is satting 100%. HEART: RRR, S1, S2 present. Peripheral pulses intact, no obvious murmurs were noted. ABDOMEN: Soft, nontender. Positive bowel sounds no organomegaly, normal bowel sounds. EXTREMITIES: Without any cyanosis, clubbing, or edema. Pedal pulses intact, Homans sign is negative. NEUROLOGIC: He is semi-sedated on BiPAP. PSYCHIATRIC: He is semi-sedated on BiPAP. SKIN: No ulcerations or rashes, good skin turgor, no jaundice. VASCULAR: Good capillary refill, neurovascular bundle appears to be intact. LABORATORY DATA: Magnesium level is 0.9. COVID testing is negative. White count 6, hemoglobin 10.7, platelets 266, CPK is slightly high at 311. Troponin is 20. INR is 1. Urinalysis negative. Drug screen negative. Head CT, no acute changes. He does have some left maxillary sinus wall fractures that are probably old. He also has some chronic left maxillary sinusitis. CT of the chest shows a limited exam with some mild airway thickening, possibly bronchitis. He also has gaseous distention of the stomach and a 4.4 cm circumscribed cystic lesion adjacent to the spleen. ASSESSMENT AND PLAN: Respiratory failure in an elderly male with the above noted comorbidities and hypomagnesemia. The patient has been admitted. We will start IV antibiotics, DuoNeb, IV steroids. Continue BiPAP. Consult Pulmonary. Trend labs. Home meds. Deep venous thrombosis prophylaxis. Full code. P.r.n Ativan, p.r.n. Tylenol, cardiac monitoring, serial cardiac enzymes. Replace his magnesium. CC TIME: 31 minutes. PASHA/NORRIS DR: Teofilo TID: [id number]
--- NOTE | 2021-04-24 13:25 | CONS ---
DATE OF CONSULTATION: 04/24/2021 PULMONARY CONSULTATION ATTENDING PHYSICIAN: Shashi White DO REASON FOR CONSULTATION: Respiratory failure. HISTORY OF PRESENT ILLNESS: The patient is a 70-year-old male who has history of COPD. He in the ER told the physician that he has history of lung cancer. The patient presented to the hospital with dyspnea and hypoxic respiratory failure. He was noted to have abnormal ABGs with a pH of 7.24, pCO2 of 59, and pO2 of 487 on 100% FiO2. He was negative for COVID on rapid test. He was placed on BiPAP. I have been asked to see him for further evaluation. He is under isolation to completely rule out COVID. I have reviewed the patient's CT chest. There was no evidence of pulmonary embolism. There are no lung masses. There is a cystic lesion adjacent to the spleen, which was incompletely evaluated and below the diaphragm. I am unable to obtain much history from the patient as he is lethargic. PAST MEDICAL HISTORY: 1. Questionable history of lung cancer, no obvious imaging findings. 2. History of COPD, could be severe. History of arrhythmias, CHF, chronic pain, narcotic dependence. PAST SURGICAL HISTORY: Unknown. ALLERGIES: NONSTEROIDAL AND PENICILLIN. FAMILY HISTORY: Coronary artery disease. SOCIAL HISTORY: Suspect long history of tobacco use. MEDICATIONS: Reviewed as listed in the MRAD. REVIEW OF SYSTEMS: Unable to obtain from the patient. PHYSICAL EXAMINATION: VITAL SIGNS: Reviewed. Blood pressure stable, pulse afebrile, pulse ox 100%. NECK: Supple. LUNGS: With diminished breath sounds. CARDIOVASCULAR: With a regular rate. ABDOMEN: Soft, nontender. EXTREMITIES: With no pitting edema. LABORATORY DATA: Reviewed. ABG discussed in my history of present illness. BUN and creatinine normal. INR 1.1. White cell count 6.3. IMPRESSION: 1. Acute hypercapnic respiratory failure secondary to suspected acute exacerbation of chronic obstructive pulmonary disease and likely narcotic dependence. 2. Urine drug screen negative. 3. CT chest with no evidence of any lung mass. There is no evidence of pulmonary embolism. There is a questionable cystic lesion adjacent to the spleen. We will leave up to the primary care for any workup. 4. Encephalopathy. RECOMMENDATIONS: 1. Continue BiPAP. We will follow ABGs and once hypercapnia is compensated, then we will discontinue BiPAP and try nasal cannula. 2. Continue IV Solu-Medrol. 3. Empiric antibiotics. 4. Add nebulizer. 5. Influenza screen is positive. We will continue Tamiflu and follow the isolation. 6. Discussed with RN. We will follow along with you. Critical care time 30 minutes. KAYKAY/GILL DR: Braxton TID: [id number]
--- NOTE | 2021-04-24 14:24 | NUR ---
SS following for discharge planning. SS reviewed pt chart and discussed with pt RN. Pt is from home with spouse and is currently on the BIPAP at 40%. COVID19 negative. Flu A positive. Pulmonology consulted. Pt on IV Rocephin, IV Solu-Medrol, and IV Doxycycline. Not ready. SS will continue to follow for discharge planning.
[2021-04-24 15:00] VITALS: BP 116/72
[2021-04-24] MEDS ORDERED: OLOD4MIS2 IH (15:18)
[2021-04-24] MEDS ORDERED: CETI10TA16 PO (15:18)
[2021-04-24] MEDS ORDERED: CARB1DRO9 OP (15:18)
[2021-04-24] MEDS ORDERED: AMLO-187 PO (15:18)
[2021-04-24] MEDS ORDERED: CARB15DR3 EACHEYE (15:18)
[2021-04-24] MEDS ORDERED: FLUT9.9S NS (15:18)
[2021-04-24] MEDS ORDERED: ACET325T21 PO (15:18)
[2021-04-24] MEDS ORDERED: SILD100T PO (15:18)
[2021-04-24] MEDS ORDERED: ALBU2.5V14 NEB (15:18)
[2021-04-24] MEDS ORDERED: CYAN-9 PO (15:18)
[2021-04-24] MEDS ORDERED: OMEG1CAP50 PO (15:18)
[2021-04-24] MEDS ORDERED: NON FORMULARY ITEM (Sildenafil Citrate (Viagra) 50 MG) PO PRN (15:45)
[2021-04-24] MEDS ORDERED: ACETAMINOPHEN 325 MG TABLET. PO PRN (15:45)
--- NOTE | 2021-04-24 15:47 | EKG ---
[facility] [address] [place] [address] Test Date: 2021-04-23 Test Time: 21:44:11 Pat Name: ARNULFO DOYLE Department: Room: [facility] Gender: M [employer]: : 1950 Requested By: GRUPO VERONICA Order Number: [id number] Reading MD: Juan Manuel Chaves MD Measurements Intervals [place] Rate: 134 P: 71 TX: 124 QRS: 49 QRSD: 78 T: 56 QT: 278 QTc: 415 Interpretive Statements SINUS TACHYCARDIA BASELINE ARTIFACT NON-SPECIFIC ST/T CHANGES CONSIDER REPEAT EKG Electronically Signed On 04-28-2021 11:16:02 PAINT AND TABLE EDGER by Juan Manuel Chaves MD
[2021-04-24] MEDS ORDERED: oxyCODONE IR 5 MG TABLET PO PRN (16:00)
[2021-04-24] MEDS ORDERED: ALBUTEROL SULFATE 2.5 MG/3 ML NEBU. NEB PRN (16:00)
[2021-04-24] MEDS: POLYVINYL ALCOHOL 1.4% OPHTH SOLUTION 15ML BOTTLE. OU SCH ×2 (16:43→21:27)
[2021-04-24 17:40] LABS: BASE EXCESS COOX -2 mmol/L (-3-3); HCO3 COOX 23 mmol/L (21-28); METHEMOGLOBIN 0.3 % (0.0-1.9); OXYHEMOGLOBIN 93.9 %; PCO2 COOX 37 mmHg (35-46); PO2 COOX 79 mmHg (65-108); SAT O2 COOX 95 % (92-99)
[2021-04-24] MEDS ORDERED: NON FORMULARY ITEM (Albuterol Sulfate (Albuterol Sulfate Conc Neb Soln) 1 VIAL) NEB SCH (18:00)
[2021-04-24 19:00] VITALS: BP 114/91
[2021-04-24] MEDS ORDERED: CARBOXYMETHYLCELLULOSE SODIUM OP SCH (21:00)
[2021-04-24] MEDS: cefTRIAXone IV Push 1 GM VIAL. IVP SCH (21:28)
[2021-04-24 22:00] VITALS: BP 104/80
[2021-04-25 02:00] VITALS: BP 98/71
[2021-04-25 04:40] LABS: BASO % 0 % (0-3); EOS % 0 % (0-3); HEMATOCRIT 33.8 % (39.0-53.0); HEMOGLOBIN 11.2 g/dL (13.0-17.5); LYMPH # 0.4 x10^3/uL (1.0-4.8); LYMPH % 6 % (24-48); MEAN CORPUSCULAR HEMOGLOBIN 32 pg (25-35); MEAN CORPUSCULAR HGB CONC 33 g/dL (31-37); MEAN CORPUSCULAR VOLUME 95 fL (79-100); MONO # 0.7 x10^3/uL (0.0-1.1); MONO % 11 % (0-9); NEUT # 5.6 x10^3/uL (1.8-7.7); NEUT % 83 % (31-73); PLATELET COUNT 253 x10^3/uL (140-400); RED BLOOD COUNT 3.54 x10^6/uL (4.30-5.70); RED CELL DISTRIBUTION WIDTH 15.8 % (11.5-14.5); WHITE BLOOD COUNT 6.7 x10^3/uL (4.0-11.0)
[2021-04-25 04:57] LABS: CALCIUM 7.6 mg/dL (8.5-10.1); CREATININE 0.8 mg/dL (0.7-1.3); POTASSIUM 3.8 mmol/L (3.5-5.1)
[2021-04-25 07:00] VITALS: BP 95/80
[2021-04-25] MEDS: IPRATRPIUM/ALBUTEROL 0.5/2.5MG 3 ML NEBU. NEB SCH ×4 (07:11→20:00)
--- NOTE | 2021-04-25 08:38 | PDOC ---
[employer] PROGRESS NOTE Date of Service DOS: DATE: 04/25/21 TIME: 08:36 Chief Complaint Chief Complaint Possible history lung cancer COPD Arrhythmias Asthma CHF Chronic pain Narcotic dependence Neuropathy History of Present Illness History of Present Illness 04/25/21 Patient seen and examined at beside Was able to talk to us clearly and looked better today. Off BiPAP and on 3L NC Magnesium is still low, will give more is also a patient here, she will likely be d/c today Chart reviewed Discussed with RN Vitals/I&O Vitals/I&O: Vital Signs Date Time Temp Pulse Resp B/P (MAP) Pulse Ox O2 Delivery O2 Flow Rate FiO2 04/25/21 07:31 Bi-pap 04/25/21 07:12 96 3.0 04/25/21 07:00 98.9 112 20 95/80 (85) 98.9 I & O 04/24/21 04/24/21 04/25/21 15:00 23:00 07:00 Intake Total 150 ml 120 ml 400 ml Output Total 1100 ml 350 ml Balance 150 ml -980 ml 50 ml Physical Exam General: Alert, Oriented X3 Heart: Regular rate Lungs: Wheezing, Crackles Abdomen: No tenderness Skin: No significant lesion Labs Labs: Laboratory Tests Test 04/24/21 15:22 04/25/21 04:00 O2 Saturation 95 % (92-99) Arterial Blood pH 7.41 (7.35-7.45) Arterial Blood pCO2 at Patient Temp 37 mmHg (35-46) Arterial Blood pO2 at Patient Temp 79 mmHg (65-108) Arterial Blood HCO3 23 mmol/L (21-28) Arterial Blood Base Excess -2 mmol/L (-3-3) Oxyhemoglobin 93.9 % Methemoglobin 0.3 % (0.0-1.9) Carbon Monoxide, Quantitative 0.3 % (0.0-1.9) FiO2 40 White Blood Count 6.7 x10^3/uL (4.0-11.0) Red Blood Count 3.54 x10^6/uL (4.30-5.70) Hemoglobin 11.2 g/dL (13.0-17.5) Hematocrit 33.8 % (39.0-53.0) Mean Corpuscular Volume 95 fL (79-100) Mean Corpuscular Hemoglobin 32 pg (25-35) Mean Corpuscular Hemoglobin Concent 33 g/dL (31-37) Red Cell Distribution Width 15.8 % (11.5-14.5) Platelet Count 253 x10^3/uL (140-400) Neutrophils (%) (Auto) 83 % (31-73) Lymphocytes (%) (Auto) 6 % (24-48) Monocytes (%) (Auto) 11 % (0-9) Eosinophils (%) (Auto) 0 % (0-3) Basophils (%) (Auto) 0 % (0-3) Neutrophils # (Auto) 5.6 x10^3/uL (1.8-7.7) Lymphocytes # (Auto) 0.4 x10^3/uL (1.0-4.8) Monocytes # (Auto) 0.7 x10^3/uL (0.0-1.1) Eosinophils # (Auto) 0.0 x10^3/uL (0.0-0.7) Basophils # (Auto) 0.0 x10^3/uL (0.0-0.2) Sodium Level 132 mmol/L (136-145) Potassium Level 3.8 mmol/L (3.5-5.1) Chloride Level 95 mmol/L (98-107) Carbon Dioxide Level 27 mmol/L (21-32) Anion Gap 10 (6-14) Blood Urea Nitrogen 15 mg/dL (8-26) Creatinine 0.8 mg/dL (0.7-1.3) Estimated GFR (Cockcroft-Gault) 116.0 Glucose Level 171 mg/dL (70-99) Calcium Level 7.6 mg/dL (8.5-10.1) Magnesium Level 0.9 mg/dL (1.8-2.4) Assessment and Plan Assessmemt and Plan Problems Medical Problems: (1) Chronic sinusitis Status: Acute (2) COPD with exacerbation Status: Acute (3) Influenza A Status: Acute (4) Respiratory failure, acute Status: Acute (5) Sepsis Status: Acute Assessment Respiratory failure Hx lung cancer COPD Hypomagnesmia Asthma Chronic pain Narcotic dependence Neuropathy Plan PT/OT eval for SNU d/c in a few days IV antibiotics TamiFlu DuoNeb PRN ativan PRN tylenol Cardiac monitoring Serial cardiac enzymes IV steroids Replace magnesium Continue BiPAP PRN Trend labs Home meds Deep venous thrombosis prophylaxis Full code Comment Review of Relevant I have reviewed the following items yesenia (where applicable) has been applied. Medications: Current Medications Medications (Trade) Dose Ordered Sig/All Route PRN Reason Start Time Stop Time Status Last Admin Dose Admin Oseltamivir Phosphate (Tamiflu) 75 mg BID PO 04/24/21 09:00 04/29/21 08:59 04/24/21 21:28 Magnesium Sulfate 50 ml @ 25 mls/hr 1X ONCE IV 04/24/21 10:00 04/24/21 11:59 DC 04/24/21 09:26 Ceftriaxone Sodium (Rocephin) 1 gm Q24H IVP 04/24/21 21:00 04/24/21 21:28 Doxycycline Hyclate 100 mg/ Dextrose 100 ml @ 50 mls/hr Q12HR IV 04/24/21 11:00 04/24/21 21:32 Methylprednisolone Sodium Succinate (SOLU-Medrol 40MG VIAL) 40 mg BID IV 04/24/21 11:00 04/24/21 21:27 Albuterol/ Ipratropium (Duoneb) 3 ml RTQID NEB 04/24/21 12:00 04/25/21 07:11 Glycerin/ Hypromellose/ Polyethylene (Artificial Tears) 1 drop QID OU 04/24/21 17:00 04/24/21 21:27 Justifications for Admission Other Justification PEE MATTHEWS III DO Apr 25, 2021 08:38
[2021-04-25] MEDS: methylPREDNISolone SOD SUCC PF 40 MG/ML VIAL. IV SCH ×2 (08:58→21:13)
[2021-04-25] MEDS: OMEGA-3 FATTY ACIDS/FISH OIL 1,000 MG CAPSULE. PO SCH (08:58)
[2021-04-25] MEDS: CYANOCOBALAMIN (VITAMIN B-12) 1,000 MCG TABLET. PO SCH (08:59)
[2021-04-25] MEDS: OSELTAMIVIR 75 MG CAPSULE PO SCH ×2 (08:59→21:13)
[2021-04-25] MEDS: GABAPENTIN 300 MG CAPSULE. PO SCH (08:59)
[2021-04-25] MEDS: CETIRIZINE HCL 10 MG TABLET. PO SCH (08:59)
[2021-04-25] MEDS ORDERED: NON FORMULARY ITEM (Olodaterol HCl (Striverdi Respimat) 4 GM) IH SCH (09:00)
[2021-04-25] MEDS ORDERED: MULTIVITAMIN with MINERAL TABLET. PO SCH (09:00)
[2021-04-25] MEDS: FLUTICASONE 50MCG/NASAL SPRAY 16GM BOTTLE. NS SCH (09:00)
[2021-04-25] MEDS: DOXYCYCLINE HYCLATE 100 MG in IV DEXTROSE 5% 100ML 100 ML IV SCH ×2 (09:01→21:13)
[2021-04-25] MEDS: POLYVINYL ALCOHOL 1.4% OPHTH SOLUTION 15ML BOTTLE. OU SCH ×4 (09:01→21:14)
[2021-04-25] MEDS ORDERED: MAGNESIUM SULFATE 2GM 50 ML IV ONE (10:00)
--- NOTE | 2021-04-25 10:47 | PDOC ---
PULMONARY PROGRESS NOTES DATE: 04/25/21 TIME: 10:45 Subjective Patient is fully awake. Off the BiPAP. He admits to using oxycodone at home Vitals Vital Signs Date Time Temp Pulse Resp B/P (MAP) Pulse Ox O2 Delivery O2 Flow Rate FiO2 04/25/21 08:58 112 95/80 04/25/21 07:31 Bi-pap 04/25/21 07:12 96 3.0 04/25/21 07:00 98.9 20 98.9 General: Alert, No acute distress Lungs: Clear Cardiovascular: S1 Abdomen: Soft Neuro Exam: Alert Extremities: No Edema Skin: Warm Labs Laboratory Tests Test 04/23/21 21:52 04/23/21 21:56 04/23/21 22:25 04/23/21 22:29 White Blood Count 6.3 x10^3/uL (4.0-11.0) Red Blood Count 3.35 x10^6/uL (4.30-5.70) Hemoglobin 10.7 g/dL (13.0-17.5) Hematocrit 31.8 % (39.0-53.0) Mean Corpuscular Volume 95 fL (79-100) Mean Corpuscular Hemoglobin 32 pg (25-35) Mean Corpuscular Hemoglobin Concent 34 g/dL (31-37) Red Cell Distribution Width 15.1 % (11.5-14.5) Platelet Count 266 x10^3/uL (140-400) Neutrophils (%) (Auto) 67 % (31-73) Lymphocytes (%) (Auto) 12 % (24-48) Monocytes (%) (Auto) 21 % (0-9) Eosinophils (%) (Auto) 0 % (0-3) Basophils (%) (Auto) 0 % (0-3) Neutrophils # (Auto) 4.2 x10^3/uL (1.8-7.7) Lymphocytes # (Auto) 0.8 x10^3/uL (1.0-4.8) Monocytes # (Auto) 1.3 x10^3/uL (0.0-1.1) Eosinophils # (Auto) 0.0 x10^3/uL (0.0-0.7) Basophils # (Auto) 0.0 x10^3/uL (0.0-0.2) Segmented Neutrophils % 52 % (35-66) Band Neutrophils % 26 % (0-9) Lymphocytes % 9 % (24-48) Monocytes % 13 % (0-10) Platelet Estimate Adequate (ADEQUATE) D-Dimer (Nereyda) 0.94 ug/mlFEU (0.00-0.50) Coronavirus (COVID-19)(PCR) Not detected (NOT DETECTD) Influenza Type A Antigen Positive (NEGATIVE) Influenza Type B Antigen Negative (NEGATIVE) SARS-CoV-2 Antigen (Rapid) Negative (NEGATIVE) Sodium Level 131 mmol/L (136-145) Potassium Level 4.8 mmol/L (3.5-5.1) Chloride Level 92 mmol/L (98-107) Carbon Dioxide Level 29 mmol/L (21-32) Anion Gap 10 (6-14) Blood Urea Nitrogen 16 mg/dL (8-26) Creatinine 0.9 mg/dL (0.7-1.3) Estimated GFR (Cockcroft-Gault) 101.2 BUN/Creatinine Ratio 18 (6-20) Glucose Level 125 mg/dL (70-99) Lactic Acid Level 0.9 mmol/L (0.4-2.0) Calcium Level 7.2 mg/dL (8.5-10.1) Magnesium Level 0.8 mg/dL (1.8-2.4) Total Bilirubin 0.4 mg/dL (0.2-1.0) Aspartate Amino Transf (AST/SGOT) 45 U/L (15-37) Alanine Aminotransferase (ALT/SGPT) 23 U/L (16-63) Alkaline Phosphatase 79 U/L (46-116) Creatine Kinase 311 U/L (39-308) Troponin I High Sensitivity 20 ng/L (4-75) OW-Qwx-N-Type Natriuretic Peptide 546 pg/mL (0-124) Total Protein 6.3 g/dL (6.4-8.2) Albumin 3.1 g/dL (3.4-5.0) Albumin/Globulin Ratio 1.0 (1.0-1.7) Lipase 118 U/L (73-393) Urine Collection Type Unknown Urine Color Yellow Urine Clarity Clear Urine pH 6.0 (<5.0-8.0) Urine Specific [place] 1.025 (1.000-1.030) Urine Protein >=300 mg/dL (NEG-TRACE) Urine Glucose (UA) Negative mg/dL (NEG) Urine Ketones (Stick) Trace mg/dL (NEG) Urine Blood Moderate (NEG) Urine Nitrite Negative (NEG) Urine Bilirubin Negative (NEG) Urine Urobilinogen Dipstick 0.2 mg/dL (0.2 mg/dL) Urine Leukocyte Esterase Negative (NEG) Urine RBC Occ /HPF (0-2) Urine WBC Occ /HPF (0-4) Urine Squamous Epithelial Cells Occ /LPF Urine Bacteria 0 /HPF (0-FEW) Urine Hyaline Casts Occasional /HPF Urine Mucus Slight /LPF Urine Opiates Screen Neg (NEG) Urine Methadone Screen Neg (NEG) Urine Barbiturates Neg (NEG) Urine Phencyclidine Screen Neg (NEG) Urine Amphetamine/Methamphetamine Neg (NEG) Urine Benzodiazepines Screen Neg (NEG) Urine Cocaine Screen Neg (NEG) Urine Cannabinoids Screen Neg (NEG) Urine Ethyl Alcohol Neg (NEG) Test 04/23/21 22:30 04/23/21 22:55 04/24/21 00:48 04/24/21 03:55 O2 Saturation 99 % (92-99) Arterial Blood pH 7.24 (7.35-7.45) Arterial Blood pCO2 at Patient Temp 59 mmHg (35-46) Arterial Blood pO2 at Patient Temp 487 mmHg (65-108) Arterial Blood HCO3 25 mmol/L (21-28) Arterial Blood Base Excess -3 mmol/L (-3-3) FiO2 100 Prothrombin Time 13.8 SEC (11.7-14.0) Prothromb Time International Ratio 1.1 (0.8-1.1) Activated Partial Thromboplast Time 39 SEC (24-38) Troponin I High Sensitivity 52 ng/L (4-75) 68 ng/L (4-75) Test 04/24/21 15:22 04/25/21 04:00 O2 Saturation 95 % (92-99) Arterial Blood pH 7.41 (7.35-7.45) Arterial Blood pCO2 at Patient Temp 37 mmHg (35-46) Arterial Blood pO2 at Patient Temp 79 mmHg (65-108) Arterial Blood HCO3 23 mmol/L (21-28) Arterial Blood Base Excess -2 mmol/L (-3-3) Oxyhemoglobin 93.9 % Methemoglobin 0.3 % (0.0-1.9) Carbon Monoxide, Quantitative 0.3 % (0.0-1.9) FiO2 40 White Blood Count 6.7 x10^3/uL (4.0-11.0) Red Blood Count 3.54 x10^6/uL (4.30-5.70) Hemoglobin 11.2 g/dL (13.0-17.5) Hematocrit 33.8 % (39.0-53.0) Mean Corpuscular Volume 95 fL (79-100) Mean Corpuscular Hemoglobin 32 pg (25-35) Mean Corpuscular Hemoglobin Concent 33 g/dL (31-37) Red Cell Distribution Width 15.8 % (11.5-14.5) Platelet Count 253 x10^3/uL (140-400) Neutrophils (%) (Auto) 83 % (31-73) Lymphocytes (%) (Auto) 6 % (24-48) Monocytes (%) (Auto) 11 % (0-9) Eosinophils (%) (Auto) 0 % (0-3) Basophils (%) (Auto) 0 % (0-3) Neutrophils # (Auto) 5.6 x10^3/uL (1.8-7.7) Lymphocytes # (Auto) 0.4 x10^3/uL (1.0-4.8) Monocytes # (Auto) 0.7 x10^3/uL (0.0-1.1) Eosinophils # (Auto) 0.0 x10^3/uL (0.0-0.7) Basophils # (Auto) 0.0 x10^3/uL (0.0-0.2) Sodium Level 132 mmol/L (136-145) Potassium Level 3.8 mmol/L (3.5-5.1) Chloride Level 95 mmol/L (98-107) Carbon Dioxide Level 27 mmol/L (21-32) Anion Gap 10 (6-14) Blood Urea Nitrogen 15 mg/dL (8-26) Creatinine 0.8 mg/dL (0.7-1.3) Estimated GFR (Cockcroft-Gault) 116.0 Glucose Level 171 mg/dL (70-99) Calcium Level 7.6 mg/dL (8.5-10.1) Magnesium Level 0.9 mg/dL (1.8-2.4) Laboratory Tests Test 04/24/21 15:22 04/25/21 04:00 O2 Saturation 95 % (92-99) Arterial Blood pH 7.41 (7.35-7.45) Arterial Blood pCO2 at Patient Temp 37 mmHg (35-46) Arterial Blood pO2 at Patient Temp 79 mmHg (65-108) Arterial Blood HCO3 23 mmol/L (21-28) Arterial Blood Base Excess -2 mmol/L (-3-3) Oxyhemoglobin 93.9 % Methemoglobin 0.3 % (0.0-1.9) Carbon Monoxide, Quantitative 0.3 % (0.0-1.9) FiO2 40 White Blood Count 6.7 x10^3/uL (4.0-11.0) Red Blood Count 3.54 x10^6/uL (4.30-5.70) Hemoglobin 11.2 g/dL (13.0-17.5) Hematocrit 33.8 % (39.0-53.0) Mean Corpuscular Volume 95 fL (79-100) Mean Corpuscular Hemoglobin 32 pg (25-35) Mean Corpuscular Hemoglobin Concent 33 g/dL (31-37) Red Cell Distribution Width 15.8 % (11.5-14.5) Platelet Count 253 x10^3/uL (140-400) Neutrophils (%) (Auto) 83 % (31-73) Lymphocytes (%) (Auto) 6 % (24-48) Monocytes (%) (Auto) 11 % (0-9) Eosinophils (%) (Auto) 0 % (0-3) Basophils (%) (Auto) 0 % (0-3) Neutrophils # (Auto) 5.6 x10^3/uL (1.8-7.7) Lymphocytes # (Auto) 0.4 x10^3/uL (1.0-4.8) Monocytes # (Auto) 0.7 x10^3/uL (0.0-1.1) Eosinophils # (Auto) 0.0 x10^3/uL (0.0-0.7) Basophils # (Auto) 0.0 x10^3/uL (0.0-0.2) Sodium Level 132 mmol/L (136-145) Potassium Level 3.8 mmol/L (3.5-5.1) Chloride Level 95 mmol/L (98-107) Carbon Dioxide Level 27 mmol/L (21-32) Anion Gap 10 (6-14) Blood Urea Nitrogen 15 mg/dL (8-26) Creatinine 0.8 mg/dL (0.7-1.3) Estimated GFR (Cockcroft-Gault) 116.0 Glucose Level 171 mg/dL (70-99) Calcium Level 7.6 mg/dL (8.5-10.1) Magnesium Level 0.9 mg/dL (1.8-2.4) Medications Active Scripts Medications Dose Route/Sig Max Daily Dose Days Date Category Fish Oil 1,000 Mg Softgel ([place]din-3 Fatty Acids/Fish Oil) 1 Each Capsule 1 Cap PO DAILY 30 04/24/21 Reported Lubricating Plus (Carboxymethylcellulose Sodium) 1 Each Droperette 1 Each OP HS 04/24/21 Reported Flonase Allergy Relief (Fluticasone Propionate) 9.9 Ml [place].susp 2 Sprays NS DAILY 04/24/21 Reported Refresh Optive Eye Drops (Carboxymethylcellulos/Glycerin) 15 Ml Drops 1 Drop EACHEYE QID 04/24/21 Reported Acetaminophen 325 Mg Tablet 1 Tab PO Q6HRS PRN 24 04/24/21 Reported Cetirizine Hcl 10 Mg Tablet 1 Tab PO DAILY 04/24/21 Reported Vitamin B-12 (Cyanocobalamin (Vitamin B-12)) 1,000 Mcg Capsule 1 Cap PO DAILY 30 04/24/21 Reported Albuterol Sulfate Conc Neb Soln (Albuterol Sulfate) 2.5 Mg/0.5 Ml Vial.neb 1 Vial NEB Q6HRS 04/24/21 Reported Striverdi Respimat (Olodaterol HCl) 4 Gm Mist.inhal 4 Gm IH DAILY 04/24/21 Reported Viagra (Sildenafil Citrate) 100 Mg Tablet 50 Mg PO ONCE PRN 04/24/21 Reported Amlodipine Besylate 10 Mg Tablet 10 Mg PO DAILY 04/24/21 Reported Oxycodone Hcl Immed.release (Oxycodone Hcl) 10 Mg Tablet 10 Mg PO PRN Q6HRS PRN 30 04/17/21 Rx Gabapentin (Gabapentin) 300 Mg Capsule Unknown Dose PO DAILY 11/09/19 Reported Fiorinal 50-325-40 Mg Capsule (Butalbital/Aspirin/Caffeine) 1 Each Capsule 1 Each PO Q4-6HRS 02/03/18 Reported Spiriva (Tiotropium [place]) 18 Mcg Cap.w.dev 1 Cap IH DAILY 10/03/13 Reported One Daily (Multivitamin With Minerals) 1 Each Tablet 1 Each PO DAILY 04/19/13 Reported Digoxin 0.125 Mg/2.5 Ml Solution 0.125 Mg PO DAILY 04/19/13 Reported Coreg Cr (Carvedilol Phosphate) 10 Mg Cpmp.24hr 10 Mg PO DAILY 04/19/13 Reported Aspir 81 (Aspirin) 81 Mg Tablet.dr 81 Mg PO DAILY 04/19/13 Reported Albuterol Sulfate Hfa Inhaler (Albuterol Sulfate) 8.5 Gm Hfa.aer.ad 8.5 Gm IH PRN 04/19/13 Reported Impression . 1. Acute hypercapnic respiratory failure secondary to suspected acute exacerbation of chronic obstructive pulmonary disease and narcotic dependence and influenza 2. Urine drug screen negative. 3. CT chest with no evidence of any lung mass. There is no evidence of pulmonary embolism. There is a questionable cystic lesion adjacent to the spleen. We will leave up to the primary care for any workup. 4. Encephalopathy. 5. Influenza Plan . 1. Patient is clinically much better. Encephalopathy has resolved. Currently on nasal cannula. 2. Solu-Medrol can be changed to oral prednisone. 3. Empiric antibiotics. 4. nebulizer. 5. Influenza screen is positive. We will continue Tamiflu and follow the isolation. 6. Discussed with RN. We will follow along with you. DARIN HOYT MD Apr 25, 2021 10:47
[2021-04-25 11:00] VITALS: BP 108/72
--- NOTE | 2021-04-25 14:06 | NUR ---
SS following up with discharge planning. SS reviewed pt chart and discussed with pt RN. Pt is currently requiring oxygen at three liters nasal canula. COVID19 negative. Pt has no home oxygen. Flu A positive. Pt on IV Rocephin, IV Doxycycline, and IV Solu-Medrol. PT/OT ordered. SS will continue to follow for discharge planning.
[2021-04-25 15:00] VITALS: BP 96/63
[2021-04-25] MEDS ORDERED: diphenhydrAMINE 50 MG/ML VIAL IVP PRN (17:45)
[2021-04-25] MEDS ORDERED: cloNIDine HCL 0.1 MG TABLET PO PRN (17:45)
[2021-04-25] MEDS: MULTIVIT INFUSN,ADULT 4,VIT K 10 ML, THIAMINE INJ 100 MG, FOLIC ACID INJ 1 MG in IV NOR... IV SCH (18:02)
[2021-04-25 19:10] VITALS: BP 112/81
--- NOTE | 2021-04-25 19:20 | NUR ---
Assessment completed vss poc explained pt denied pain but sob with exertion will monitor pt call light in reach bed alarm set will resume care.
[2021-04-25] MEDS: cefTRIAXone IV Push 1 GM VIAL. IVP SCH (21:13)
[2021-04-25 23:07] VITALS: BP 93/63
[2021-04-26] VITALS (7 sets, daily range): BP systolic 104–128; BP diastolic 69–89
[2021-04-26 05:41] LABS: BASO % 0 % (0-3); EOS % 0 % (0-3); HEMATOCRIT 30.2 % (39.0-53.0); HEMOGLOBIN 10.2 g/dL (13.0-17.5); LYMPH # 0.2 x10^3/uL (1.0-4.8); LYMPH % 4 % (24-48); MEAN CORPUSCULAR HEMOGLOBIN 32 pg (25-35); MEAN CORPUSCULAR HGB CONC 34 g/dL (31-37); MEAN CORPUSCULAR VOLUME 94 fL (79-100); MONO # 0.5 x10^3/uL (0.0-1.1); MONO % 9 % (0-9); NEUT # 4.6 x10^3/uL (1.8-7.7); NEUT % 87 % (31-73); PLATELET COUNT 270 x10^3/uL (140-400); RED CELL DISTRIBUTION WIDTH 15.4 % (11.5-14.5); WHITE BLOOD COUNT 5.3 x10^3/uL (4.0-11.0)
[2021-04-26 06:02] LABS: CREATININE 0.7 mg/dL (0.7-1.3); GFR 135.3; POTASSIUM 3.4 mmol/L (3.5-5.1)
[2021-04-26] MEDS: IPRATRPIUM/ALBUTEROL 0.5/2.5MG 3 ML NEBU. NEB SCH ×4 (08:00→20:00)
[2021-04-26] MEDS: DOXYCYCLINE HYCLATE 100 MG in IV DEXTROSE 5% 100ML 100 ML IV SCH ×2 (08:13→20:25)
[2021-04-26] MEDS: OMEGA-3 FATTY ACIDS/FISH OIL 1,000 MG CAPSULE. PO SCH (08:13)
[2021-04-26] MEDS: methylPREDNISolone SOD SUCC PF 40 MG/ML VIAL. IV SCH (08:13)
[2021-04-26] MEDS: CYANOCOBALAMIN (VITAMIN B-12) 1,000 MCG TABLET. PO SCH (08:13)
[2021-04-26] MEDS: GABAPENTIN 300 MG CAPSULE. PO SCH (08:13)
[2021-04-26] MEDS: OSELTAMIVIR 75 MG CAPSULE PO SCH ×2 (08:14→20:24)
[2021-04-26] MEDS: CETIRIZINE HCL 10 MG TABLET. PO SCH (08:14)
[2021-04-26] MEDS: POLYVINYL ALCOHOL 1.4% OPHTH SOLUTION 15ML BOTTLE. OU SCH ×4 (08:16→20:24)
[2021-04-26] MEDS: FLUTICASONE 50MCG/NASAL SPRAY 16GM BOTTLE. NS SCH (08:16)
--- NOTE | 2021-04-26 11:26 | PDOC ---
PULMONARY PROGRESS NOTES DATE: 04/26/21 TIME: 11:25 Subjective Patient is fully awake. Off the BiPAP. He admits to using oxycodone at home Vitals Vital Signs Date Time Temp Pulse Resp B/P (MAP) Pulse Ox O2 Delivery O2 Flow Rate FiO2 04/26/21 08:45 98.1 90 16 104/72 (83) 99 Room Air 98.1 04/26/21 08:00 3.0 General: Alert, No acute distress Lungs: Clear Cardiovascular: S1 Abdomen: Soft Neuro Exam: Alert Extremities: No Edema Skin: Warm Labs Laboratory Tests Test 04/24/21 15:22 04/25/21 04:00 04/26/21 04:00 04/26/21 07:47 O2 Saturation 95 % (92-99) Arterial Blood pH 7.41 (7.35-7.45) Arterial Blood pCO2 at Patient Temp 37 mmHg (35-46) Arterial Blood pO2 at Patient Temp 79 mmHg (65-108) Arterial Blood HCO3 23 mmol/L (21-28) Arterial Blood Base Excess -2 mmol/L (-3-3) Oxyhemoglobin 93.9 % Methemoglobin 0.3 % (0.0-1.9) Carbon Monoxide, Quantitative 0.3 % (0.0-1.9) FiO2 40 White Blood Count 6.7 x10^3/uL (4.0-11.0) 5.3 x10^3/uL (4.0-11.0) Red Blood Count 3.54 x10^6/uL (4.30-5.70) 3.20 x10^6/uL (4.30-5.70) Hemoglobin 11.2 g/dL (13.0-17.5) 10.2 g/dL (13.0-17.5) Hematocrit 33.8 % (39.0-53.0) 30.2 % (39.0-53.0) Mean Corpuscular Volume 95 fL (79-100) 94 fL (79-100) Mean Corpuscular Hemoglobin 32 pg (25-35) 32 pg (25-35) Mean Corpuscular Hemoglobin Concent 33 g/dL (31-37) 34 g/dL (31-37) Red Cell Distribution Width 15.8 % (11.5-14.5) 15.4 % (11.5-14.5) Platelet Count 253 x10^3/uL (140-400) 270 x10^3/uL (140-400) Neutrophils (%) (Auto) 83 % (31-73) 87 % (31-73) Lymphocytes (%) (Auto) 6 % (24-48) 4 % (24-48) Monocytes (%) (Auto) 11 % (0-9) 9 % (0-9) Eosinophils (%) (Auto) 0 % (0-3) 0 % (0-3) Basophils (%) (Auto) 0 % (0-3) 0 % (0-3) Neutrophils # (Auto) 5.6 x10^3/uL (1.8-7.7) 4.6 x10^3/uL (1.8-7.7) Lymphocytes # (Auto) 0.4 x10^3/uL (1.0-4.8) 0.2 x10^3/uL (1.0-4.8) Monocytes # (Auto) 0.7 x10^3/uL (0.0-1.1) 0.5 x10^3/uL (0.0-1.1) Eosinophils # (Auto) 0.0 x10^3/uL (0.0-0.7) 0.0 x10^3/uL (0.0-0.7) Basophils # (Auto) 0.0 x10^3/uL (0.0-0.2) 0.0 x10^3/uL (0.0-0.2) Sodium Level 132 mmol/L (136-145) 133 mmol/L (136-145) Potassium Level 3.8 mmol/L (3.5-5.1) 3.4 mmol/L (3.5-5.1) Chloride Level 95 mmol/L (98-107) 96 mmol/L (98-107) Carbon Dioxide Level 27 mmol/L (21-32) 29 mmol/L (21-32) Anion Gap 10 (6-14) 8 (6-14) Blood Urea Nitrogen 15 mg/dL (8-26) 13 mg/dL (8-26) Creatinine 0.8 mg/dL (0.7-1.3) 0.7 mg/dL (0.7-1.3) Estimated GFR (Cockcroft-Gault) 116.0 135.3 Glucose Level 171 mg/dL (70-99) 161 mg/dL (70-99) Calcium Level 7.6 mg/dL (8.5-10.1) 8.0 mg/dL (8.5-10.1) Magnesium Level 0.9 mg/dL (1.8-2.4) 1.1 mg/dL (1.8-2.4) Glucose (Fingerstick) 159 mg/dL (70-99) Laboratory Tests Test 04/26/21 04:00 04/26/21 07:47 White Blood Count 5.3 x10^3/uL (4.0-11.0) Red Blood Count 3.20 x10^6/uL (4.30-5.70) Hemoglobin 10.2 g/dL (13.0-17.5) Hematocrit 30.2 % (39.0-53.0) Mean Corpuscular Volume 94 fL (79-100) Mean Corpuscular Hemoglobin 32 pg (25-35) Mean Corpuscular Hemoglobin Concent 34 g/dL (31-37) Red Cell Distribution Width 15.4 % (11.5-14.5) Platelet Count 270 x10^3/uL (140-400) Neutrophils (%) (Auto) 87 % (31-73) Lymphocytes (%) (Auto) 4 % (24-48) Monocytes (%) (Auto) 9 % (0-9) Eosinophils (%) (Auto) 0 % (0-3) Basophils (%) (Auto) 0 % (0-3) Neutrophils # (Auto) 4.6 x10^3/uL (1.8-7.7) Lymphocytes # (Auto) 0.2 x10^3/uL (1.0-4.8) Monocytes # (Auto) 0.5 x10^3/uL (0.0-1.1) Eosinophils # (Auto) 0.0 x10^3/uL (0.0-0.7) Basophils # (Auto) 0.0 x10^3/uL (0.0-0.2) Sodium Level 133 mmol/L (136-145) Potassium Level 3.4 mmol/L (3.5-5.1) Chloride Level 96 mmol/L (98-107) Carbon Dioxide Level 29 mmol/L (21-32) Anion Gap 8 (6-14) Blood Urea Nitrogen 13 mg/dL (8-26) Creatinine 0.7 mg/dL (0.7-1.3) Estimated GFR (Cockcroft-Gault) 135.3 Glucose Level 161 mg/dL (70-99) Calcium Level 8.0 mg/dL (8.5-10.1) Magnesium Level 1.1 mg/dL (1.8-2.4) Glucose (Fingerstick) 159 mg/dL (70-99) Medications Active Scripts Medications Dose Route/Sig Max Daily Dose Days Date Category Fish Oil 1,000 Mg Softgel ([place]-3 Fatty Acids/Fish Oil) 1 Each Capsule 1 Cap PO DAILY 30 04/24/21 Reported Lubricating Plus (Carboxymethylcellulose Sodium) 1 Each Droperette 1 Each OP HS 04/24/21 Reported Flonase Allergy Relief (Fluticasone Propionate) 9.9 Ml [place].susp 2 Sprays NS DAILY 04/24/21 Reported Refresh Optive Eye Drops (Carboxymethylcellulos/Glycerin) 15 Ml Drops 1 Drop EACHEYE QID 04/24/21 Reported Acetaminophen 325 Mg Tablet 1 Tab PO Q6HRS PRN 24 04/24/21 Reported Cetirizine Hcl 10 Mg Tablet 1 Tab PO DAILY 04/24/21 Reported Vitamin B-12 (Cyanocobalamin (Vitamin B-12)) 1,000 Mcg Capsule 1 Cap PO DAILY 30 04/24/21 Reported Albuterol Sulfate Conc Neb Soln (Albuterol Sulfate) 2.5 Mg/0.5 Ml Vial.neb 1 Vial NEB Q6HRS 04/24/21 Reported Striverdi Respimat (Olodaterol HCl) 4 Gm Mist.inhal 4 Gm IH DAILY 04/24/21 Reported Viagra (Sildenafil Citrate) 100 Mg Tablet 50 Mg PO ONCE PRN 04/24/21 Reported Amlodipine Besylate 10 Mg Tablet 10 Mg PO DAILY 04/24/21 Reported Oxycodone Hcl Immed.release (Oxycodone Hcl) 10 Mg Tablet 10 Mg PO PRN Q6HRS PRN 30 04/17/21 Rx Gabapentin (Gabapentin) 300 Mg Capsule Unknown Dose PO DAILY 11/09/19 Reported Fiorinal 50-325-40 Mg Capsule (Butalbital/Aspirin/Caffeine) 1 Each Capsule 1 Each PO Q4-6HRS 02/03/18 Reported Spiriva (Tiotropium [place]) 18 Mcg Cap.w.dev 1 Cap IH DAILY 10/03/13 Reported One Daily (Multivitamin With Minerals) 1 Each Tablet 1 Each PO DAILY 04/19/13 Reported Digoxin 0.125 Mg/2.5 Ml Solution 0.125 Mg PO DAILY 04/19/13 Reported Coreg Cr (Carvedilol Phosphate) 10 Mg Cpmp.24hr 10 Mg PO DAILY 04/19/13 Reported Aspir 81 (Aspirin) 81 Mg Tablet.dr 81 Mg PO DAILY 04/19/13 Reported Albuterol Sulfate Hfa Inhaler (Albuterol Sulfate) 8.5 Gm Hfa.aer.ad 8.5 Gm IH PRN 04/19/13 Reported Impression . 1. Acute hypercapnic respiratory failure secondary to suspected acute exacerbation of chronic obstructive pulmonary disease and narcotic dependence and influenza 2. Urine drug screen negative. 3. CT chest with no evidence of any lung mass. There is no evidence of pulmonary embolism. There is a questionable cystic lesion adjacent to the spleen. We will leave up to the primary care for any workup. 4. Encephalopathy. 5. Influenza Plan . 1. Patient is clinically much better. Encephalopathy has resolved. Currently on nasal cannula. 2. Solu-Medrol can be changed to oral prednisone. 3. Empiric antibiotics. 4. nebulizer. 5. Influenza screen is positive. We will continue Tamiflu and follow the isolation. 6. Discussed with RN. We will follow along with you. DARIN HOYT MD Apr 26, 2021 11:26
--- NOTE | 2021-04-26 12:46 | PDOC ---
[facility] [facility] PROGRESS NOTE Date of Service DOS: DATE: 04/26/21 TIME: 12:46 Chief Complaint Chief Complaint Possible history lung cancer COPD Arrhythmias Asthma CHF Chronic pain Narcotic dependence Neuropathy History of Present Illness History of Present Illness Please see next note timed 12:48 hrs. 04/25/21 Patient seen and examined at beside Was able to talk to us clearly and looked better today. Off BiPAP and on 3L NC Magnesium is still low, will give more is also a patient here, she will likely be d/c today Chart reviewed Discussed with RN Vitals/I&O Vitals/I&O: Vital Signs Date Time Temp Pulse Resp B/P (MAP) Pulse Ox O2 Delivery O2 Flow Rate FiO2 04/26/21 11:36 100 Nasal Cannula 3.0 04/26/21 11:00 97.7 86 16 119/82 (94) 97.7 I & O 04/25/21 04/25/21 04/26/21 15:00 23:00 07:00 Intake Total 150 ml 120 ml 0 ml Output Total 1000 ml Balance 150 ml 120 ml -1000 ml Physical Exam General: Alert, Oriented X3 Heart: Regular rate Lungs: Clear Abdomen: No tenderness Skin: No significant lesion Labs Labs: Laboratory Tests Test 04/26/21 04:00 04/26/21 07:47 White Blood Count 5.3 x10^3/uL (4.0-11.0) Red Blood Count 3.20 x10^6/uL (4.30-5.70) Hemoglobin 10.2 g/dL (13.0-17.5) Hematocrit 30.2 % (39.0-53.0) Mean Corpuscular Volume 94 fL (79-100) Mean Corpuscular Hemoglobin 32 pg (25-35) Mean Corpuscular Hemoglobin Concent 34 g/dL (31-37) Red Cell Distribution Width 15.4 % (11.5-14.5) Platelet Count 270 x10^3/uL (140-400) Neutrophils (%) (Auto) 87 % (31-73) Lymphocytes (%) (Auto) 4 % (24-48) Monocytes (%) (Auto) 9 % (0-9) Eosinophils (%) (Auto) 0 % (0-3) Basophils (%) (Auto) 0 % (0-3) Neutrophils # (Auto) 4.6 x10^3/uL (1.8-7.7) Lymphocytes # (Auto) 0.2 x10^3/uL (1.0-4.8) Monocytes # (Auto) 0.5 x10^3/uL (0.0-1.1) Eosinophils # (Auto) 0.0 x10^3/uL (0.0-0.7) Basophils # (Auto) 0.0 x10^3/uL (0.0-0.2) Sodium Level 133 mmol/L (136-145) Potassium Level 3.4 mmol/L (3.5-5.1) Chloride Level 96 mmol/L (98-107) Carbon Dioxide Level 29 mmol/L (21-32) Anion Gap 8 (6-14) Blood Urea Nitrogen 13 mg/dL (8-26) Creatinine 0.7 mg/dL (0.7-1.3) Estimated GFR (Cockcroft-Gault) 135.3 Glucose Level 161 mg/dL (70-99) Calcium Level 8.0 mg/dL (8.5-10.1) Magnesium Level 1.1 mg/dL (1.8-2.4) Glucose (Fingerstick) 159 mg/dL (70-99) Assessment and Plan Assessmemt and Plan Please see next note timed 12:48-hour Comment Review of Relevant I have reviewed the following items yesenia (where applicable) has been applied. Medications: Current Medications Medications (Trade) Dose Ordered Sig/All Route PRN Reason Start Time Stop Time Status Last Admin Dose Admin Multivitamins 10 ml/Thiamine HCl 100 mg/Folic Acid 1 mg/Sodium Chloride 1,011.2 ml @ 100 mls/ hr Q24H IV 04/25/21 18:00 04/30/21 04:07 04/25/21 18:02 Justifications for Admission Other Justification PEE MATTHEWS III DO Apr 26, 2021 12:46
--- NOTE | 2021-04-26 12:48 | PDOC ---
[facility] PROGRESS NOTE Date of Service DOS: DATE: 04/26/21 TIME: 12:46 Chief Complaint Chief Complaint Respiratory failure Influenza Hx lung cancer COPD Hypomagnesmia Asthma Chronic pain Narcotic dependence Neuropathy History of Present Illness History of Present Illness 04/26/2021 Patient seen and examined He is resting with no apparent Discussed with RN Chart reviewed 04/25/21 Patient seen and examined at beside Was able to talk to us clearly and looked better today. Off BiPAP and on 3L NC Magnesium is still low, will give more is also a patient here, she will likely be d/c today Chart reviewed Discussed with RN Vitals/I&O Vitals/I&O: Vital Signs Date Time Temp Pulse Resp B/P (MAP) Pulse Ox O2 Delivery O2 Flow Rate FiO2 04/26/21 11:36 100 Nasal Cannula 3.0 04/26/21 11:00 97.7 86 16 119/82 (94) 97.7 I & O 04/25/21 04/25/21 04/26/21 15:00 23:00 07:00 Intake Total 150 ml 120 ml 0 ml Output Total 1000 ml Balance 150 ml 120 ml -1000 ml Physical Exam General: No acute distress Heart: Regular rate Lungs: Clear Abdomen: No tenderness Skin: No significant lesion Labs Labs: Laboratory Tests Test 04/26/21 04:00 04/26/21 07:47 White Blood Count 5.3 x10^3/uL (4.0-11.0) Red Blood Count 3.20 x10^6/uL (4.30-5.70) Hemoglobin 10.2 g/dL (13.0-17.5) Hematocrit 30.2 % (39.0-53.0) Mean Corpuscular Volume 94 fL (79-100) Mean Corpuscular Hemoglobin 32 pg (25-35) Mean Corpuscular Hemoglobin Concent 34 g/dL (31-37) Red Cell Distribution Width 15.4 % (11.5-14.5) Platelet Count 270 x10^3/uL (140-400) Neutrophils (%) (Auto) 87 % (31-73) Lymphocytes (%) (Auto) 4 % (24-48) Monocytes (%) (Auto) 9 % (0-9) Eosinophils (%) (Auto) 0 % (0-3) Basophils (%) (Auto) 0 % (0-3) Neutrophils # (Auto) 4.6 x10^3/uL (1.8-7.7) Lymphocytes # (Auto) 0.2 x10^3/uL (1.0-4.8) Monocytes # (Auto) 0.5 x10^3/uL (0.0-1.1) Eosinophils # (Auto) 0.0 x10^3/uL (0.0-0.7) Basophils # (Auto) 0.0 x10^3/uL (0.0-0.2) Sodium Level 133 mmol/L (136-145) Potassium Level 3.4 mmol/L (3.5-5.1) Chloride Level 96 mmol/L (98-107) Carbon Dioxide Level 29 mmol/L (21-32) Anion Gap 8 (6-14) Blood Urea Nitrogen 13 mg/dL (8-26) Creatinine 0.7 mg/dL (0.7-1.3) Estimated GFR (Cockcroft-Gault) 135.3 Glucose Level 161 mg/dL (70-99) Calcium Level 8.0 mg/dL (8.5-10.1) Magnesium Level 1.1 mg/dL (1.8-2.4) Glucose (Fingerstick) 159 mg/dL (70-99) Assessment and Plan Assessmemt and Plan Problems Medical Problems: (1) Chronic sinusitis Status: Acute (2) COPD with exacerbation Status: Acute (3) Influenza A Status: Acute (4) Respiratory failure, acute Status: Acute (5) Sepsis Status: Acute Respiratory failure Influenza Hx lung cancer COPD Hypomagnesmia Asthma Chronic pain Narcotic dependence Neuropathy Plan PT/OT eval for [facility] d/c in a few days IV antibiotics Appreciate pulmonary input TamiFlu DuoNeb PRN ativan PRN tylenol Cardiac monitoring Serial cardiac enzymes Changing to p.o. steroids Replace magnesium Continue BiPAP PRN Trend labs Home meds Deep venous thrombosis prophylaxis Full code Per pulmonary recommendations please see the following and we certainly agree and appreciate their input; 1. Acute hypercapnic respiratory failure secondary to suspected acute exacerbation of chronic obstructive pulmonary disease and narcotic dependence and influenza 2. Urine drug screen negative. 3. CT chest with no evidence of any lung mass. There is no evidence of pulmonary embolism. There is a questionable cystic lesion adjacent to the spleen. We will leave up to the primary care for any workup. 4. Encephalopathy. 5. Influenza Plan Plan . 1. Patient is clinically much better. Encephalopathy has resolved. Currently on nasal cannula. 2. Solu-Medrol can be changed to oral prednisone. 3. Empiric antibiotics. 4. nebulizer. 5. Influenza screen is positive. We will continue Tamiflu and follow the isolation. 6. Discussed with RN. We will follow along with you. Comment Review of Relevant I have reviewed the following items yesenia (where applicable) has been applied. Medications: Current Medications Medications (Trade) Dose Ordered Sig/All Route PRN Reason Start Time Stop Time Status Last Admin Dose Admin Multivitamins 10 ml/Thiamine HCl 100 mg/Folic Acid 1 mg/Sodium Chloride 1,011.2 ml @ 100 mls/ hr Q24H IV 04/25/21 18:00 04/30/21 04:07 04/25/21 18:02 Justifications for Admission Other Justification PEE MATTHEWS III DO Apr 26, 2021 12:48
[2021-04-26] MEDS: MULTIVIT INFUSN,ADULT 4,VIT K 10 ML, THIAMINE INJ 100 MG, FOLIC ACID INJ 1 MG in IV NOR... IV SCH (17:20)
--- NOTE | 2021-04-26 19:25 | NUR ---
Pt in bed assessment completed vss poc explained pt denied pain call light in reach bed alarm set will resume care and continue to monitor pt.
[2021-04-26] MEDS: cefTRIAXone IV Push 1 GM VIAL. IVP SCH (20:24)
[2021-04-27 02:35] VITALS: BP 95/55
[2021-04-27 05:18] LABS: BASO % 0 % (0-3); EOS % 0 % (0-3); HEMATOCRIT 29.3 % (39.0-53.0); HEMOGLOBIN 9.8 g/dL (13.0-17.5); LYMPH # 0.3 x10^3/uL (1.0-4.8); LYMPH % 5 % (24-48); MEAN CORPUSCULAR HEMOGLOBIN 31 pg (25-35); MEAN CORPUSCULAR HGB CONC 34 g/dL (31-37); MEAN CORPUSCULAR VOLUME 93 fL (79-100); MONO # 0.9 x10^3/uL (0.0-1.1); MONO % 18 % (0-9); NEUT # 3.8 x10^3/uL (1.8-7.7); NEUT % 77 % (31-73); PLATELET COUNT 289 x10^3/uL (140-400); RED BLOOD COUNT 3.15 x10^6/uL (4.30-5.70); RED CELL DISTRIBUTION WIDTH 15.3 % (11.5-14.5); WHITE BLOOD COUNT 4.9 x10^3/uL (4.0-11.0)
[2021-04-27 05:43] LABS: CALCIUM 8.1 mg/dL (8.5-10.1); CREATININE 0.7 mg/dL (0.7-1.3); GFR 135.3
[2021-04-27 07:00] VITALS: BP 117/84
[2021-04-27] MEDS: IPRATRPIUM/ALBUTEROL 0.5/2.5MG 3 ML NEBU. NEB SCH ×3 (08:05→21:10)
[2021-04-27] MEDS: HALOPERIDOL LACTATE 5 MG/ML VIAL. IVP PRN ×2 (08:20→20:12)
[2021-04-27] MEDS: DOXYCYCLINE HYCLATE 100 MG in IV DEXTROSE 5% 100ML 100 ML IV SCH ×2 (08:20→20:12)
[2021-04-27] MEDS: POLYVINYL ALCOHOL 1.4% OPHTH SOLUTION 15ML BOTTLE. OU SCH ×4 (08:37→20:16)
[2021-04-27] MEDS: FLUTICASONE 50MCG/NASAL SPRAY 16GM BOTTLE. NS SCH (08:37)
[2021-04-27] MEDS: OMEGA-3 FATTY ACIDS/FISH OIL 1,000 MG CAPSULE. PO SCH (08:38)
[2021-04-27] MEDS: CETIRIZINE HCL 10 MG TABLET. PO SCH (08:38)
[2021-04-27] MEDS: CYANOCOBALAMIN (VITAMIN B-12) 1,000 MCG TABLET. PO SCH (08:38)
[2021-04-27] MEDS: GABAPENTIN 300 MG CAPSULE. PO SCH (08:38)
[2021-04-27] MEDS: predniSONE 20 MG TABLET PO SCH (08:38)
[2021-04-27] MEDS: OSELTAMIVIR 75 MG CAPSULE PO SCH ×2 (08:38→21:45)
[2021-04-27] MEDS ORDERED: MAGNESIUM SULFATE 2GM 50 ML IV ONE (08:45)
[2021-04-27] MEDS ORDERED: POTASSIUM CHLORIDE 20 MEQ TABLET.ER. PO ONE (09:00)
--- NOTE | 2021-04-27 10:17 | PDOC ---
PULMONARY PROGRESS NOTES DATE: 04/27/21 TIME: 10:15 Subjective Patient denies any increased shortness of breath. Had some reported wheezing Vitals Vital Signs Date Time Temp Pulse Resp B/P (MAP) Pulse Ox O2 Delivery O2 Flow Rate FiO2 04/27/21 08:38 101 117/84 04/27/21 08:05 100 Nasal Cannula 3.0 04/27/21 07:00 97.6 97.6 04/27/21 02:35 18 General: Alert, No acute distress Lungs: Wheezing (Occasional wheezing) Cardiovascular: S1 Abdomen: Soft Neuro Exam: Alert Extremities: No Edema Skin: Warm Labs Laboratory Tests Test 04/26/21 04:00 04/26/21 07:47 04/27/21 03:30 White Blood Count 5.3 x10^3/uL (4.0-11.0) 4.9 x10^3/uL (4.0-11.0) Red Blood Count 3.20 x10^6/uL (4.30-5.70) 3.15 x10^6/uL (4.30-5.70) Hemoglobin 10.2 g/dL (13.0-17.5) 9.8 g/dL (13.0-17.5) Hematocrit 30.2 % (39.0-53.0) 29.3 % (39.0-53.0) Mean Corpuscular Volume 94 fL (79-100) 93 fL (79-100) Mean Corpuscular Hemoglobin 32 pg (25-35) 31 pg (25-35) Mean Corpuscular Hemoglobin Concent 34 g/dL (31-37) 34 g/dL (31-37) Red Cell Distribution Width 15.4 % (11.5-14.5) 15.3 % (11.5-14.5) Platelet Count 270 x10^3/uL (140-400) 289 x10^3/uL (140-400) Neutrophils (%) (Auto) 87 % (31-73) 77 % (31-73) Lymphocytes (%) (Auto) 4 % (24-48) 5 % (24-48) Monocytes (%) (Auto) 9 % (0-9) 18 % (0-9) Eosinophils (%) (Auto) 0 % (0-3) 0 % (0-3) Basophils (%) (Auto) 0 % (0-3) 0 % (0-3) Neutrophils # (Auto) 4.6 x10^3/uL (1.8-7.7) 3.8 x10^3/uL (1.8-7.7) Lymphocytes # (Auto) 0.2 x10^3/uL (1.0-4.8) 0.3 x10^3/uL (1.0-4.8) Monocytes # (Auto) 0.5 x10^3/uL (0.0-1.1) 0.9 x10^3/uL (0.0-1.1) Eosinophils # (Auto) 0.0 x10^3/uL (0.0-0.7) 0.0 x10^3/uL (0.0-0.7) Basophils # (Auto) 0.0 x10^3/uL (0.0-0.2) 0.0 x10^3/uL (0.0-0.2) Sodium Level 133 mmol/L (136-145) 134 mmol/L (136-145) Potassium Level 3.4 mmol/L (3.5-5.1) 3.0 mmol/L (3.5-5.1) Chloride Level 96 mmol/L (98-107) 97 mmol/L (98-107) Carbon Dioxide Level 29 mmol/L (21-32) 28 mmol/L (21-32) Anion Gap 8 (6-14) 9 (6-14) Blood Urea Nitrogen 13 mg/dL (8-26) 9 mg/dL (8-26) Creatinine 0.7 mg/dL (0.7-1.3) 0.7 mg/dL (0.7-1.3) Estimated GFR (Cockcroft-Gault) 135.3 135.3 Glucose Level 161 mg/dL (70-99) 138 mg/dL (70-99) Calcium Level 8.0 mg/dL (8.5-10.1) 8.1 mg/dL (8.5-10.1) Magnesium Level 1.1 mg/dL (1.8-2.4) Glucose (Fingerstick) 159 mg/dL (70-99) Laboratory Tests Test 04/27/21 03:30 White Blood Count 4.9 x10^3/uL (4.0-11.0) Red Blood Count 3.15 x10^6/uL (4.30-5.70) Hemoglobin 9.8 g/dL (13.0-17.5) Hematocrit 29.3 % (39.0-53.0) Mean Corpuscular Volume 93 fL (79-100) Mean Corpuscular Hemoglobin 31 pg (25-35) Mean Corpuscular Hemoglobin Concent 34 g/dL (31-37) Red Cell Distribution Width 15.3 % (11.5-14.5) Platelet Count 289 x10^3/uL (140-400) Neutrophils (%) (Auto) 77 % (31-73) Lymphocytes (%) (Auto) 5 % (24-48) Monocytes (%) (Auto) 18 % (0-9) Eosinophils (%) (Auto) 0 % (0-3) Basophils (%) (Auto) 0 % (0-3) Neutrophils # (Auto) 3.8 x10^3/uL (1.8-7.7) Lymphocytes # (Auto) 0.3 x10^3/uL (1.0-4.8) Monocytes # (Auto) 0.9 x10^3/uL (0.0-1.1) Eosinophils # (Auto) 0.0 x10^3/uL (0.0-0.7) Basophils # (Auto) 0.0 x10^3/uL (0.0-0.2) Sodium Level 134 mmol/L (136-145) Potassium Level 3.0 mmol/L (3.5-5.1) Chloride Level 97 mmol/L (98-107) Carbon Dioxide Level 28 mmol/L (21-32) Anion Gap 9 (6-14) Blood Urea Nitrogen 9 mg/dL (8-26) Creatinine 0.7 mg/dL (0.7-1.3) Estimated GFR (Cockcroft-Gault) 135.3 Glucose Level 138 mg/dL (70-99) Calcium Level 8.1 mg/dL (8.5-10.1) Medications Active Scripts Medications Dose Route/Sig Max Daily Dose Days Date Category Fish Oil 1,000 Mg Softgel ([place]-3 Fatty Acids/Fish Oil) 1 Each Capsule 1 Cap PO DAILY 30 04/24/21 Reported Lubricating Plus (Carboxymethylcellulose Sodium) 1 Each Droperette 1 Each OP HS 04/24/21 Reported Flonase Allergy Relief (Fluticasone Propionate) 9.9 Ml [place].susp 2 Sprays NS DAILY 04/24/21 Reported Refresh Optive Eye Drops (Carboxymethylcellulos/Glycerin) 15 Ml Drops 1 Drop EACHEYE QID 04/24/21 Reported Acetaminophen 325 Mg Tablet 1 Tab PO Q6HRS PRN 24 04/24/21 Reported Cetirizine Hcl 10 Mg Tablet 1 Tab PO DAILY 04/24/21 Reported Vitamin B-12 (Cyanocobalamin (Vitamin B-12)) 1,000 Mcg Capsule 1 Cap PO DAILY 30 04/24/21 Reported Albuterol Sulfate Conc Neb Soln (Albuterol Sulfate) 2.5 Mg/0.5 Ml Vial.neb 1 Vial NEB Q6HRS 04/24/21 Reported Striverdi Respimat (Olodaterol HCl) 4 Gm Mist.inhal 4 Gm IH DAILY 04/24/21 Reported Viagra (Sildenafil Citrate) 100 Mg Tablet 50 Mg PO ONCE PRN 04/24/21 Reported Amlodipine Besylate 10 Mg Tablet 10 Mg PO DAILY 04/24/21 Reported Oxycodone Hcl Immed.release (Oxycodone Hcl) 10 Mg Tablet 10 Mg PO PRN Q6HRS PRN 30 04/17/21 Rx Gabapentin (Gabapentin) 300 Mg Capsule Unknown Dose PO DAILY 11/09/19 Reported Fiorinal 50-325-40 Mg Capsule (Butalbital/Aspirin/Caffeine) 1 Each Capsule 1 Each PO Q4-6HRS 02/03/18 Reported Spiriva (Tiotropium [place]) 18 Mcg Cap.w.dev 1 Cap IH DAILY 10/03/13 Reported One Daily (Multivitamin With Minerals) 1 Each Tablet 1 Each PO DAILY 04/19/13 Reported Digoxin 0.125 Mg/2.5 Ml Solution 0.125 Mg PO DAILY 04/19/13 Reported Coreg Cr (Carvedilol Phosphate) 10 Mg Cpmp.24hr 10 Mg PO DAILY 04/19/13 Reported Aspir 81 (Aspirin) 81 Mg Tablet.dr 81 Mg PO DAILY 04/19/13 Reported Albuterol Sulfate Hfa Inhaler (Albuterol Sulfate) 8.5 Gm Hfa.aer.ad 8.5 Gm IH PRN 04/19/13 Reported Impression . 1. Acute hypercapnic respiratory failure secondary to acute exacerbation of chronic obstructive pulmonary disease , narcotic dependence and influenza 2. Urine drug screen negative. 3. CT chest with no evidence of any lung mass. There is no evidence of pulmonary embolism. There is a questionable cystic lesion adjacent to the spleen. We will leave up to the primary care for any workup. 4. Encephalopathy. 5. Influenza Plan . 1. Patient is clinically stable. Encephalopathy has improved. Currently on nasal cannula. 2. Continue oral prednisone. 3. Empiric antibiotics. 4. nebulizer. 5. Influenza screen is positive. We will continue Tamiflu and follow the isolation. 6. Discussed with RN. We will follow along with you. 7. Likely discharge in 24 hours DARIN HOYT MD Apr 27, 2021 10:17
[2021-04-27 11:00] VITALS: BP 145/86
--- NOTE | 2021-04-27 12:22 | PDOC ---
[facility] PROGRESS NOTE Date of Service DOS: DATE: 04/27/21 TIME: 12:19 Chief Complaint Chief Complaint Respiratory failure Influenza Hx lung cancer COPD Hypomagnesmia Asthma Chronic pain Narcotic dependence Neuropathy History of Present Illness History of Present Illness 04/27/2021 Patient seen and examined He is resting with no apparent distress Discussed with RN Chart reviewed Please see next note timed 12:48 hrs. 04/25/21 Patient seen and examined at beside Was able to talk to us clearly and looked better today. Off BiPAP and on 3L NC Magnesium is still low, will give more is also a patient here, she will likely be d/c today Chart reviewed Discussed with RN Vitals/I&O Vitals/I&O: Vital Signs Date Time Temp Pulse Resp B/P (MAP) Pulse Ox O2 Delivery O2 Flow Rate FiO2 04/27/21 11:51 100 Nasal Cannula 3.0 04/27/21 11:00 98.3 76 17 145/86 (105) 98.3 I & O 04/26/21 04/26/21 04/27/21 15:00 23:00 07:00 Intake Total 100 ml 270 ml Output Total 700 ml 1550 ml Balance -600 ml -1280 ml Physical Exam General: No acute distress Heart: Regular rate Lungs: Wheezing (Occasional wheezing) Abdomen: No tenderness Skin: No significant lesion Labs Labs: Laboratory Tests Test 04/27/21 03:30 White Blood Count 4.9 x10^3/uL (4.0-11.0) Red Blood Count 3.15 x10^6/uL (4.30-5.70) Hemoglobin 9.8 g/dL (13.0-17.5) Hematocrit 29.3 % (39.0-53.0) Mean Corpuscular Volume 93 fL (79-100) Mean Corpuscular Hemoglobin 31 pg (25-35) Mean Corpuscular Hemoglobin Concent 34 g/dL (31-37) Red Cell Distribution Width 15.3 % (11.5-14.5) Platelet Count 289 x10^3/uL (140-400) Neutrophils (%) (Auto) 77 % (31-73) Lymphocytes (%) (Auto) 5 % (24-48) Monocytes (%) (Auto) 18 % (0-9) Eosinophils (%) (Auto) 0 % (0-3) Basophils (%) (Auto) 0 % (0-3) Neutrophils # (Auto) 3.8 x10^3/uL (1.8-7.7) Lymphocytes # (Auto) 0.3 x10^3/uL (1.0-4.8) Monocytes # (Auto) 0.9 x10^3/uL (0.0-1.1) Eosinophils # (Auto) 0.0 x10^3/uL (0.0-0.7) Basophils # (Auto) 0.0 x10^3/uL (0.0-0.2) Sodium Level 134 mmol/L (136-145) Potassium Level 3.0 mmol/L (3.5-5.1) Chloride Level 97 mmol/L (98-107) Carbon Dioxide Level 28 mmol/L (21-32) Anion Gap 9 (6-14) Blood Urea Nitrogen 9 mg/dL (8-26) Creatinine 0.7 mg/dL (0.7-1.3) Estimated GFR (Cockcroft-Gault) 135.3 Glucose Level 138 mg/dL (70-99) Calcium Level 8.1 mg/dL (8.5-10.1) Assessment and Plan Assessmemt and Plan Problems Medical Problems: (1) Chronic sinusitis Status: Acute (2) COPD with exacerbation Status: Acute (3) Influenza A Status: Acute (4) Respiratory failure, acute Status: Acute (5) Sepsis Status: Acute Respiratory failure Influenza Hx lung cancer COPD Hypomagnesmia Asthma Chronic pain Narcotic dependence Neuropathy Plan Hope to discharge to [facility] soon For now continue the following; IV antibiotics Appreciate pulmonary input TamiFlu DuoNeb PRN ativan PRN tylenol Cardiac monitoring Serial cardiac enzymes Changing to p.o. steroids Replace magnesium Continue BiPAP PRN Trend labs Home meds Deep venous thrombosis prophylaxis Full code Comment Review of Relevant I have reviewed the following items yesenia (where applicable) has been applied. Medications: Current Medications Medications (Trade) Dose Ordered Sig/All Route PRN Reason Start Time Stop Time Status Last Admin Dose Admin Prednisone (Prednisone) 20 mg DAILY PO 04/27/21 09:00 04/27/21 08:38 Potassium Chloride (Klor-Con) 40 meq 1X ONCE PO 04/27/21 09:00 04/27/21 09:01 DC 3/6/22 11:06 Justifications for Admission Other Justification PEE MATTHEWS III DO Apr 27, 2021 12:22
[2021-04-27 15:00] VITALS: BP 113/73
[2021-04-27] MEDS: MULTIVIT INFUSN,ADULT 4,VIT K 10 ML, THIAMINE INJ 100 MG, FOLIC ACID INJ 1 MG in IV NOR... IV SCH (17:11)
[2021-04-27 19:23] VITALS: BP 105/70
[2021-04-27] MEDS: cefTRIAXone IV Push 1 GM VIAL. IVP SCH (20:12)
[2021-04-27 22:30] VITALS: BP 119/87
[2021-04-28 02:21] VITALS: BP 103/73
[2021-04-28 05:20] LABS: BASO % 1 % (0-3); EOS % 0 % (0-3); HEMOGLOBIN 10.2 g/dL (13.0-17.5); LYMPH # 0.5 x10^3/uL (1.0-4.8); LYMPH % 10 % (24-48); MEAN CORPUSCULAR HEMOGLOBIN 32 pg (25-35); MEAN CORPUSCULAR HGB CONC 33 g/dL (31-37); MEAN CORPUSCULAR VOLUME 96 fL (79-100); MONO # 0.8 x10^3/uL (0.0-1.1); MONO % 19 % (0-9); NEUT # 3.2 x10^3/uL (1.8-7.7); NEUT % 70 % (31-73); PLATELET COUNT 324 x10^3/uL (140-400); RED BLOOD COUNT 3.24 x10^6/uL (4.30-5.70); RED CELL DISTRIBUTION WIDTH 15.8 % (11.5-14.5); WHITE BLOOD COUNT 4.5 x10^3/uL (4.0-11.0)
[2021-04-28 05:33] LABS: CALCIUM 7.9 mg/dL (8.5-10.1); CREATININE 0.7 mg/dL (0.7-1.3); GFR 135.3; POTASSIUM 3.1 mmol/L (3.5-5.1)
[2021-04-28] MEDS: IPRATRPIUM/ALBUTEROL 0.5/2.5MG 3 ML NEBU. NEB SCH ×2 (06:58→11:25)
[2021-04-28 07:00] VITALS: BP 130/93
[2021-04-28] MEDS: DOXYCYCLINE HYCLATE 100 MG in IV DEXTROSE 5% 100ML 100 ML IV SCH (08:43)
[2021-04-28] MEDS: CETIRIZINE HCL 10 MG TABLET. PO SCH (08:44)
[2021-04-28] MEDS: GABAPENTIN 300 MG CAPSULE. PO SCH (08:44)
[2021-04-28] MEDS: POLYVINYL ALCOHOL 1.4% OPHTH SOLUTION 15ML BOTTLE. OU SCH (08:44)
[2021-04-28] MEDS: predniSONE 20 MG TABLET PO SCH (08:44)
[2021-04-28] MEDS: CYANOCOBALAMIN (VITAMIN B-12) 1,000 MCG TABLET. PO SCH (08:44)
[2021-04-28] MEDS: OSELTAMIVIR 75 MG CAPSULE PO SCH (08:44)
[2021-04-28] MEDS: OMEGA-3 FATTY ACIDS/FISH OIL 1,000 MG CAPSULE. PO SCH (08:44)
[2021-04-28] MEDS: FLUTICASONE 50MCG/NASAL SPRAY 16GM BOTTLE. NS SCH (08:45)
--- NOTE | 2021-04-28 10:46 | PDOC ---
[facility] [facility] PROGRESS NOTE Date of Service DOS: DATE: 04/28/21 TIME: 10:44 Chief Complaint Chief Complaint Respiratory failure Influenza Hx lung cancer COPD Hypomagnesmia Asthma Chronic pain Narcotic dependence Neuropathy History of Present Illness History of Present Illness 04/28/2021 Patient seen and examined He is requesting discharge Discussed with case management and RN Chart reviewed Hope to discharge this afternoon with home health on p.o. doxycycline 04/27/2021 Patient seen and examined He is resting with no apparent distress Discussed with RN Chart reviewed Please see next note timed 12:48 hrs. 04/25/21 Patient seen and examined at beside Was able to talk to us clearly and looked better today. Off BiPAP and on 3L NC Magnesium is still low, will give more is also a patient here, she will likely be d/c today Chart reviewed Discussed with RN Vitals/I&O Vitals/I&O: Vital Signs Date Time Temp Pulse Resp B/P (MAP) Pulse Ox O2 Delivery O2 Flow Rate FiO2 04/28/21 08:44 108 103/73 04/28/21 08:00 Nasal Cannula 3.0 04/28/21 07:00 97.4 18 100 97.4 I & O 0 04/27/21 04/27/21 04/28/21 15:00 23:00 07:00 Intake Total 1000 ml 1150 ml Output Total 700 ml 1500 ml 1000 ml Balance -700 ml -500 ml 150 ml Physical Exam General: No acute distress Heart: Regular rate Lungs: Wheezing (Occasional wheezing) Abdomen: No tenderness Skin: No significant lesion Labs Labs: Laboratory Tests Test 04/28/21 04:25 White Blood Count 4.5 x10^3/uL (4.0-11.0) Red Blood Count 3.24 x10^6/uL (4.30-5.70) Hemoglobin 10.2 g/dL (13.0-17.5) Hematocrit 31.0 % (39.0-53.0) Mean Corpuscular Volume 96 fL (79-100) Mean Corpuscular Hemoglobin 32 pg (25-35) Mean Corpuscular Hemoglobin Concent 33 g/dL (31-37) Red Cell Distribution Width 15.8 % (11.5-14.5) Platelet Count 324 x10^3/uL (140-400) Neutrophils (%) (Auto) 70 % (31-73) Lymphocytes (%) (Auto) 10 % (24-48) Monocytes (%) (Auto) 19 % (0-9) Eosinophils (%) (Auto) 0 % (0-3) Basophils (%) (Auto) 1 % (0-3) Neutrophils # (Auto) 3.2 x10^3/uL (1.8-7.7) Lymphocytes # (Auto) 0.5 x10^3/uL (1.0-4.8) Monocytes # (Auto) 0.8 x10^3/uL (0.0-1.1) Eosinophils # (Auto) 0.0 x10^3/uL (0.0-0.7) Basophils # (Auto) 0.0 x10^3/uL (0.0-0.2) Sodium Level 140 mmol/L (136-145) Potassium Level 3.1 mmol/L (3.5-5.1) Chloride Level 101 mmol/L (98-107) Carbon Dioxide Level 32 mmol/L (21-32) Anion Gap 7 (6-14) Blood Urea Nitrogen 5 mg/dL (8-26) Creatinine 0.7 mg/dL (0.7-1.3) Estimated GFR (Cockcroft-Gault) 135.3 Glucose Level 122 mg/dL (70-99) Calcium Level 7.9 mg/dL (8.5-10.1) Assessment and Plan Assessmemt and Plan Problems Medical Problems: (1) Chronic sinusitis Status: Acute (2) COPD with exacerbation Status: Acute (3) Influenza A Status: Acute (4) Respiratory failure, acute Status: Acute (5) Sepsis Status: Acute Respiratory failure Influenza Hx lung cancer COPD Hypomagnesmia Asthma Chronic pain Narcotic dependence Neuropathy Plan Hope to discharge this afternoon with home health Discussed with pharmacy working to give him his last dose of Tamiflu before he leaves We will send prescription for p.o. doxycycline For now continue the following; Appreciate pulmonary input DuoNeb PRN ativan PRN tylenol Cardiac monitoring P.o. steroid Trend labs Home meds Deep venous thrombosis prophylaxis Full code Discharge this afternoon with home Comment Review of Relevant I have reviewed the following items yesenia (where applicable) has been applied. Justifications for Admission Other Justification PEE MATTHEWS III DO Apr 28, 2021 10:46
[2021-04-28] MEDS ORDERED: METH4TAB2 PO (10:51)
[2021-04-28] MEDS ORDERED: DOXY100C3 PO (10:51)
[2021-04-28] MEDS ORDERED: LEVO500T9 PO (10:51)
--- NOTE | 2021-04-28 10:52 | SNU/HH DC ---
DISCHARGE WITH HOME HEALTH DISCHARGE INFORMATION: Final Diagnosis: Problems Medical Problems: (1) Chronic sinusitis Status: Acute (2) COPD with exacerbation Status: Acute (3) Influenza A Status: Acute (4) Respiratory failure, acute Status: Acute (5) Sepsis Status: Acute Condition on Discharge: Stable CODE STATUS: Code Status: Full HOME HEALTH: Face to Face: I certify this patient is under my care and that I, or a nurse practitioner or physician's teaching assistant working with me, had a face to face encounter that meets the physician face to face encounter requirements with this patient on []. Medical Complications: COPD Mcc For: Assess Cardiopulm Status RN For Eval/Treatment: Yes Physical Therapy For: Evalulation/Treatment Occupational Therapy For: Evaluation/Treatment Home Health Aide For: Self-care [employer]CRE[employer]ISHER For: Community Resources Pt Meets Homebound Status: Unsteady balance w/ amb, POST DISCHARGE ORDERS: DIET AFTER DISCHARGE: Cardiac CERTIFICATION STATEMENT: Certification Statement: Certification Statement: Based on the above finding, I certify that this patient is confined to the home and needs intermittent detention care, physical therapy and/or speech therapy, or continues to need occupational therapy.~ This patient is under my care, and I have initiated the establishment of the plan of care.~ This patient will be followed by myself or a community physician who will periodically review the plan of care. Home Meds Active Scripts Levofloxacin (LEVOFLOXACIN) 500 Mg Tablet, 1 TAB PO DAILY for ., #7 TAB Prov:CASTLE,NIAL K III DO 04/28/21 Doxycycline Hyclate (DOXYCYCLINE HYCLATE) 100 Mg Capsule, 1 CAP PO BID for ., #14 CAP Prov:CASTLE,NIAL K III DO 04/28/21 Methylprednisolone (MEDROL) 4 Mg Tab.ds.pk, 1 PKG PO UD for ., #1 PKG Prov:CASTLE,NIAL K III DO 04/28/21 Oxycodone Hcl (OXYCODONE HCL IMMED.RELEASE) 10 Mg Tablet, 10 MG PO PRN Q6HRS PRN for PAIN for 30 Days, #100 TAB 0 Refills Prov:JUAN NINA MD 04/17/21 Reported Medications [place]-3 Fatty Acids/Fish Oil (FISH OIL 1,000 MG SOFTGEL) 1 Each Capsule, 1 CAP PO DAILY for high trigycerides for 30 Days, #30 CAP 0 Refills 04/24/21 Carboxymethylcellulose Sodium (LUBRICATING PLUS) 1 Each Droperette, 1 EACH OP HS for dry eyes, DROP 04/24/21 Fluticasone Propionate (Flonase Allergy Relief) 9.9 Ml [place].susp, 2 SPRAYS NS DAILY for allergy, ML 04/24/21 Carboxymethylcellulos/Glycerin (REFRESH OPTIVE EYE DROPS) 15 Ml Drops, 1 DROP EACHEYE QID for dry eyes, #30 ML 6 Refills 04/24/21 Acetaminophen (ACETAMINOPHEN) 325 Mg Tablet, 1 TAB PO Q6HRS PRN for pain or fever for 24 Days, #100 TAB 0 Refills 04/24/21 Cetirizine Hcl (CETIRIZINE HCL) 10 Mg Tablet, 1 TAB PO DAILY for allergy symptoms, #30 TAB 5 Refills 04/24/21 Cyanocobalamin (Vitamin B-12) (Vitamin B-12) 1,000 Mcg Capsule, 1 CAP PO DAILY for replacement for 30 Days, #30 CAP 0 Refills 04/24/21 Albuterol Sulfate (ALBUTEROL SULFATE CONC NEB SOLN) 2.5 Mg/0.5 Ml Vial.neb, 1 VIAL NEB Q6HRS for respiritory, #120 VIAL 5 Refills 04/24/21 Olodaterol HCl (Striverdi Respimat) 4 Gm Mist.inhal, 4 GM IH DAILY for respirit ory, SPRAY 04/24/21 Sildenafil Citrate (VIAGRA) 100 Mg Tablet, 50 MG PO ONCE PRN for SEE ADMIN INSTRUCTIONS, TAB 04/24/21 Amlodipine Besylate (AMLODIPINE BESYLATE) 10 Mg Tablet, 10 MG PO DAILY for cardiac, TAB 04/24/21 Gabapentin (GABAPENTIN ) 300 Mg Capsule, PO DAILY for NEUROGENIC PAIN, CAP 11/09/19 Butalbital/Aspirin/Caffeine (FIORINAL 50-325-40 MG CAPSULE) 1 Each Capsule, 1 EACH PO Q4-6HRS for headache, CAP 02/03/18 Tiotropium [place] (SPIRIVA) 18 Mcg Cap.w.dev, 1 CAP IH DAILY, #30 CAP 3 Refills 10/03/13 Multivitamin With Minerals (ONE DAILY) 1 Each Tablet, 1 EACH PO DAILY 04/19/13 Digoxin (DIGOXIN) 0.125 Mg/2.5 Ml Solution, 0.125 MG PO DAILY 04/19/13 Carvedilol Phosphate (COREG CR) 10 Mg Cpmp.24hr, 10 MG PO DAILY 04/19/13 Aspirin (ASPIR 81) 81 Mg Tablet.dr, 81 MG PO DAILY 04/19/13 Albuterol Sulfate (ALBUTEROL SULFATE HFA INHALER) 8.5 Gm Hfa.aer.ad, 8.5 GM IH PRN 04/19/13 Discontinued Reported Medications Cyanocobalamin (Vitamin B-12) (VITAMIN B-12) 100 Mcg Tablet, 100 MCG PO DAILY 04/19/13 PEE MATTHEWS III DO Apr 28, 2021 10:52
--- NOTE | 2021-04-28 10:54 | PDOC ---
PULMONARY PROGRESS NOTES DATE: 04/28/21 TIME: 10:51 Subjective Patient seen resting in bed, feeling better. he is on his baseline O2 from home 3L [place]. denies shortness of breath. he is hoping to be discharge soon Vitals Vital Signs Date Time Temp Pulse Resp B/P (MAP) Pulse Ox O2 Delivery O2 Flow Rate FiO2 04/28/21 08:44 108 103/73 04/28/21 08:00 Nasal Cannula 3.0 04/28/21 07:00 97.4 18 100 97.4 General: Alert, No acute distress Lungs: Wheezing (Occasional wheezing) Cardiovascular: S1 Abdomen: Soft Neuro Exam: Alert Extremities: No Edema Skin: Warm Labs Laboratory Tests Test 04/27/21 03:30 04/28/21 04:25 White Blood Count 4.9 x10^3/uL (4.0-11.0) 4.5 x10^3/uL (4.0-11.0) Red Blood Count 3.15 x10^6/uL (4.30-5.70) 3.24 x10^6/uL (4.30-5.70) Hemoglobin 9.8 g/dL (13.0-17.5) 10.2 g/dL (13.0-17.5) Hematocrit 29.3 % (39.0-53.0) 31.0 % (39.0-53.0) Mean Corpuscular Volume 93 fL (79-100) 96 fL (79-100) Mean Corpuscular Hemoglobin 31 pg (25-35) 32 pg (25-35) Mean Corpuscular Hemoglobin Concent 34 g/dL (31-37) 33 g/dL (31-37) Red Cell Distribution Width 15.3 % (11.5-14.5) 15.8 % (11.5-14.5) Platelet Count 289 x10^3/uL (140-400) 324 x10^3/uL (140-400) Neutrophils (%) (Auto) 77 % (31-73) 70 % (31-73) Lymphocytes (%) (Auto) 5 % (24-48) 10 % (24-48) Monocytes (%) (Auto) 18 % (0-9) 19 % (0-9) Eosinophils (%) (Auto) 0 % (0-3) 0 % (0-3) Basophils (%) (Auto) 0 % (0-3) 1 % (0-3) Neutrophils # (Auto) 3.8 x10^3/uL (1.8-7.7) 3.2 x10^3/uL (1.8-7.7) Lymphocytes # (Auto) 0.3 x10^3/uL (1.0-4.8) 0.5 x10^3/uL (1.0-4.8) Monocytes # (Auto) 0.9 x10^3/uL (0.0-1.1) 0.8 x10^3/uL (0.0-1.1) Eosinophils # (Auto) 0.0 x10^3/uL (0.0-0.7) 0.0 x10^3/uL (0.0-0.7) Basophils # (Auto) 0.0 x10^3/uL (0.0-0.2) 0.0 x10^3/uL (0.0-0.2) Sodium Level 134 mmol/L (136-145) 140 mmol/L (136-145) Potassium Level 3.0 mmol/L (3.5-5.1) 3.1 mmol/L (3.5-5.1) Chloride Level 97 mmol/L (98-107) 101 mmol/L (98-107) Carbon Dioxide Level 28 mmol/L (21-32) 32 mmol/L (21-32) Anion Gap 9 (6-14) 7 (6-14) Blood Urea Nitrogen 9 mg/dL (8-26) 5 mg/dL (8-26) Creatinine 0.7 mg/dL (0.7-1.3) 0.7 mg/dL (0.7-1.3) Estimated GFR (Cockcroft-Gault) 135.3 135.3 Glucose Level 138 mg/dL (70-99) 122 mg/dL (70-99) Calcium Level 8.1 mg/dL (8.5-10.1) 7.9 mg/dL (8.5-10.1) Laboratory Tests Test 04/28/21 04:25 White Blood Count 4.5 x10^3/uL (4.0-11.0) Red Blood Count 3.24 x10^6/uL (4.30-5.70) Hemoglobin 10.2 g/dL (13.0-17.5) Hematocrit 31.0 % (39.0-53.0) Mean Corpuscular Volume 96 fL (79-100) Mean Corpuscular Hemoglobin 32 pg (25-35) Mean Corpuscular Hemoglobin Concent 33 g/dL (31-37) Red Cell Distribution Width 15.8 % (11.5-14.5) Platelet Count 324 x10^3/uL (140-400) Neutrophils (%) (Auto) 70 % (31-73) Lymphocytes (%) (Auto) 10 % (24-48) Monocytes (%) (Auto) 19 % (0-9) Eosinophils (%) (Auto) 0 % (0-3) Basophils (%) (Auto) 1 % (0-3) Neutrophils # (Auto) 3.2 x10^3/uL (1.8-7.7) Lymphocytes # (Auto) 0.5 x10^3/uL (1.0-4.8) Monocytes # (Auto) 0.8 x10^3/uL (0.0-1.1) Eosinophils # (Auto) 0.0 x10^3/uL (0.0-0.7) Basophils # (Auto) 0.0 x10^3/uL (0.0-0.2) Sodium Level 140 mmol/L (136-145) Potassium Level 3.1 mmol/L (3.5-5.1) Chloride Level 101 mmol/L (98-107) Carbon Dioxide Level 32 mmol/L (21-32) Anion Gap 7 (6-14) Blood Urea Nitrogen 5 mg/dL (8-26) Creatinine 0.7 mg/dL (0.7-1.3) Estimated GFR (Cockcroft-Gault) 135.3 Glucose Level 122 mg/dL (70-99) Calcium Level 7.9 mg/dL (8.5-10.1) Medications Active Scripts Medications Dose Route/Sig Max Daily Dose Days Date Category Fish Oil 1,000 Mg Softgel ([place]-3 Fatty Acids/Fish Oil) 1 Each Capsule 1 Cap PO DAILY 30 04/24/21 Reported Lubricating Plus (Carboxymethylcellulose Sodium) 1 Each Droperette 1 Each OP HS 04/24/21 Reported Flonase Allergy Relief (Fluticasone Propionate) 9.9 Ml [place].susp 2 Sprays NS DAILY 04/24/21 Reported Refresh Optive Eye Drops (Carboxymethylcellulos/Glycerin) 15 Ml Drops 1 Drop EACHEYE QID 04/24/21 Reported Acetaminophen 325 Mg Tablet 1 Tab PO Q6HRS PRN 24 04/24/21 Reported Cetirizine Hcl 10 Mg Tablet 1 Tab PO DAILY 04/24/21 Reported Vitamin B-12 (Cyanocobalamin (Vitamin B-12)) 1,000 Mcg Capsule 1 Cap PO DAILY 30 04/24/21 Reported Albuterol Sulfate Conc Neb Soln (Albuterol Sulfate) 2.5 Mg/0.5 Ml Vial.neb 1 Vial NEB Q6HRS 04/24/21 Reported Striverdi Respimat (Olodaterol HCl) 4 Gm Mist.inhal 4 Gm IH DAILY 04/24/21 Reported Viagra (Sildenafil Citrate) 100 Mg Tablet 50 Mg PO ONCE PRN 04/24/21 Reported Amlodipine Besylate 10 Mg Tablet 10 Mg PO DAILY 04/24/21 Reported Oxycodone Hcl Immed.release (Oxycodone Hcl) 10 Mg Tablet 10 Mg PO PRN Q6HRS PRN 30 04/17/21 Rx Gabapentin (Gabapentin) 300 Mg Capsule Unknown Dose PO DAILY 11/09/19 Reported Fiorinal 50-325-40 Mg Capsule (Butalbital/Aspirin/Caffeine) 1 Each Capsule 1 Each PO Q4-6HRS 02/03/18 Reported Spiriva (Tiotropium [place]) 18 Mcg Cap.w.dev 1 Cap IH DAILY 10/03/13 Reported One Daily (Multivitamin With Minerals) 1 Each Tablet 1 Each PO DAILY 04/19/13 Reported Digoxin 0.125 Mg/2.5 Ml Solution 0.125 Mg PO DAILY 04/19/13 Reported Coreg Cr (Carvedilol Phosphate) 10 Mg Cpmp.24hr 10 Mg PO DAILY 04/19/13 Reported Aspir 81 (Aspirin) 81 Mg Tablet.dr 81 Mg PO DAILY 04/19/13 Reported Albuterol Sulfate Hfa Inhaler (Albuterol Sulfate) 8.5 Gm Hfa.aer.ad 8.5 Gm IH PRN 04/19/13 Reported Impression . 1. Acute hypercapnic respiratory failure secondary to acute exacerbation of chronic obstructive pulmonary disease , narcotic dependence and influenza 2. Urine drug screen negative. 3. CT chest with no evidence of any lung mass. There is no evidence of pulmonary embolism. There is a questionable cystic lesion adjacent to the spleen. We will leave up to the primary care for any workup. 4. Encephalopathy. 5. Influenza Plan . 04/28 continue tamilflu to completion patient is at baseline level of oxygen continue prednison empiri antibiotics anticipate discharge soon 04/27 1. Patient is clinically stable. Encephalopathy has improved. Currently on nasal cannula. 2. Continue oral prednisone. 3. Empiric antibiotics. 4. nebulizer. 5. Influenza screen is positive. We will continue Tamiflu and follow the isolation. 6. Discussed with RN. We will follow along with you. 7. Likely discharge in 24 hours DARIN HOYT MD Apr 28, 2021 10:54
[2021-04-28 11:00] VITALS: BP 121/90
--- NOTE | 2021-04-28 11:29 | NUR ---
SS following up with discharge planning. SS reviewed pt chart and discussed with pt RN. Pt is currently requiring oxygen at three liters nasal canula. COVID19 negative. Flu A positive. PT/OT recommended half-way unit. Pt declining half-way unit at this time and is requesting to return to home. Pt reporting this morning that he has home oxygen at home. Discharge orders received for home with home healthcare. SS met with pt and discussed discharge planning and home healthcare. Pt agreeable to home healthcare with no preference of company. Discharge orders and referral sent to [facility], ; fax [phone]. Pt's RN notified.
[2021-04-28] MEDS ORDERED: POTASSIUM CHLORIDE 20 MEQ TABLET.ER. PO ONE (12:00)
--- NOTE | 2021-04-28 13:43 | NUR ---
DISCHARGE PIV ET TELE DISCONTINUED. ASHLEY REMOVED PER MD ORDER. DISCHARGE INFORMATION GIVEN TO PATIENT SPOUSE. MEDICATIONS REVIEWED, NOTATIONS MADE FOR DOSES ALREADY HAD TODAY. HOME O2 WAS ESTABLISHED [facility] [employer], NEW HOME HEALTH INITIATED TODAY FOR POST HOSPITALIZATION. ESCORTED TO CAR VIA W/C BY [employer].
--- NOTE | 2021-04-28 19:03 | DS ---
DATE OF DISCHARGE: 04/28/2021 ADMITTING DIAGNOSES: Respiratory failure, multifactorial including chronic obstructive pulmonary disease, influenza, pneumonia. DISCHARGE DIAGNOSES: Resolving multifactorial respiratory failure, chronic obstructive pulmonary disease, resolving influenza, history of lung cancer, hypomagnesemia, asthma, chronic pain, narcotic dependence and neuropathy. CONSULTS: Pulmonary Medicine. PROCEDURES: None. HOSPITAL COURSE: The patient is a pleasant middle-aged male who has lung cancer and COPD, presented with respiratory failure. He also had influenza. We gave him steroids, breathing treatments, oxygen, antibiotics and Tamiflu. Over the past few days, he has returned to his baseline. Today, I saw and examined him. He wants to go home. We plan to discharge. DISPOSITION: Home. ACTIVITY: As tolerated. DIET: Low sodium. DISCHARGE MEDICATIONS: Please see the MRAD. Levaquin 500 a day for 1 more week, prednisone taper, doxycycline 100 p.o. b.i.d., Tylenol p.r.n., albuterol p.r.n., amlodipine 10 a day, aspirin 81 a day, Fiorinal 50/325/40 one q.6 hours p.r.n., Refresh eye drops, Coreg CR 10 daily, cetirizine 10 a day, B12, digoxin 0.125 a day, Flonase, gabapentin 300 b.i.d., multiple vitamins, fish oil, oxycodone, p.r.n. Viagra and Spiriva. TOTAL TIME: [address]: Teofilo TID: [id number]
[2021-04-30] MEDS ORDERED: MULTIVITAMIN with MINERAL TABLET. PO SCH (09:00)
== END 2021-04-28 13:25 | disposition home health service (06) | DRG 871 ==
LOC: ER 21:43 → 6 SOUTH 23:48
PROVIDERS: ADMIT Internal Medicine; ATTEND Internal Medicine
PROC: 5A09457 Assistance with Respiratory Ventilation, 24-96 Consecutive Hours, Continuous Positive Airway Pressure (ICD-10-PCS; principal; 2021-04-23)
PROC: 5A09357 Assistance with Respiratory Ventilation, Less than 24 Consecutive Hours, Continuous Positive Airway Pressure (ICD-10-PCS; 2021-04-25)
DX: A41.9 Sepsis, unspecified organism (principal); J96.01 Acute respiratory failure with hypoxia; J10.00 Influenza due to other identified influenza virus with unspecified type of pneumonia; J96.02 Acute respiratory failure with hypercapnia; S02.40DA Maxillary fracture, left side, initial encounter for closed fracture; C34.90 Malignant neoplasm of unspecified part of unspecified bronchus or lung; F11.20 Opioid dependence, uncomplicated; G93.40 Encephalopathy, unspecified; J44.0 Chronic obstructive pulmonary disease with (acute) lower respiratory infection; J44.1 Chronic obstructive pulmonary disease with (acute) exacerbation; E83.42 Hypomagnesemia; G62.9 Polyneuropathy, unspecified; G89.29 Other chronic pain; I50.9 Heart failure, unspecified; J32.0 Chronic maxillary sinusitis; Z20.822 Contact with and (suspected) exposure to COVID-19; Z82.49 Family history of ischemic heart disease and other diseases of the circulatory system; Z85.118 Personal history of other malignant neoplasm of bronchus and lung; Z87.891 Personal history of nicotine dependence; Z88.0 Allergy status to penicillin; Z88.8 Allergy status to other drugs, medicaments and biological substances; J45.909 Unspecified asthma, uncomplicated
CPT/HCPCS: 36415; 36600; 70450; 71045; 71275; 80048; 80053; 80307; 81001; 82550; 82805; 82962; 83605; 83690; 83735; 83880; 84484; 85007; 85025; 85379; 85610; 85730; 87040; 87426; 87804; 93005; 94640; 94660; 94760; 96361; 96365; 96375; 96376; J0696; J1100; J1630; J2060; J2920; J3411; J3475; J3490; J7030; J7060; J7512; Q9967; U0003; 97116-GP; 97530-GO; 97535-GO; 99285-25; G0378

== ENCOUNTER → 2021-05-12 | Outpatient (CLI) | payer MEDICAID, OTHER ==
[2021-04-28 11:00] VITALS: BP 121/90
[~2021-05-12] MED LIST changes: +ACET325T21 PO; +ALBU2.5V14 NEB; +AMLO-187 PO; +CARB15DR3 EACHEYE; +CARB1DRO9 OP; +CETI10TA16 PO; +CYAN-9 PO; +DOXY100C3 PO; +FLUT9.9S NS; +LEVO500T9 PO; +METH4TAB2 PO; +OLOD4MIS2 IH; +OMEG1CAP50 PO; +SILD100T PO
--- NOTE | 2021-05-12 16:09 | PDOC ---
Progress Note - Pain Clinic Date of Service: DOS: DATE: 05/12/21 TIME: 16:07 Diagnosis: Dx: Lumbar radiculopathy with lumbar degenerative disc disease and lumbar postlaminectomy syndrome History or Present Illness: HPI: Telemedicine visit today with full identity verified with date of as well as full name, total time spent 12 minutes, telephone voice only 70-year-old male via telemedicine visit today requesting refill of oxycodone patient is doing very well with this medication has been on a very stable regimen and has been a 30-day. Since his last prescription patient reports no side effects with medication reports still some significant pain in the low back into the lower extremities but very well controlled once again with the medicines to about a 70 to 80% improvement overall patient reports he is able to sleep well at night he is increasing his activity with greater ease and comfort with warmer weather we have had recently still within reason and patient knows his limitations but is generally doing very well with his current regimen. Patient has had appropriate K tracks reporting as well as appropriate urinalyses to date as well. Options were discussed with the patient, we will have patient's medication electronically prescribed oxycodone 10 mg with instructions and side effects aware of discussed with patient. Patient will follow up in approximately 30 days as scheduled. Physical Exam: PE: JUAN NINA MD May 12, 2021 16:09
--- NOTE | 2021-05-12 16:12 | NUR ---
Pt called clinic to request a refill on his oxycodone prescribed by Dr. Mendoza for his chronic pain issues. Pt. denies new health problems, side effects or constipation. Pharmacy verified and next in clinic appt. verified. Pt states his pain level averages 6/10. Dr. Mendoza to contact pt. for [facility] of his med. SBarrett العراقي RN
== END | disposition home or self-care (01) ==
LOC: PNCL 16:06
PROVIDERS: ATTEND Anesthesiology
DX: M51.16 Intervertebral disc disorders with radiculopathy, lumbar region (principal); M96.1 Postlaminectomy syndrome, not elsewhere classified; I10 Essential (primary) hypertension; J44.9 Chronic obstructive pulmonary disease, unspecified; Z79.82 Long term (current) use of aspirin; Z79.899 Other long term (current) drug therapy; Z87.891 Personal history of nicotine dependence; Z98.890 Other specified postprocedural states; Z72.89 Other problems related to lifestyle; Z88.8 Allergy status to other drugs, medicaments and biological substances; Z88.0 Allergy status to penicillin
CPT/HCPCS: 99212; G0463

== ENCOUNTER → 2021-06-16 | Outpatient (CLI) | payer OTHER ==
--- NOTE | 2021-06-16 09:33 | PDOC ---
Progress Note - Pain Clinic Date of Service: DOS: DATE: 06/16/21 TIME: 09:30 Diagnosis: Dx: Lumbar radiculopathy with lumbar degenerative disc disease and lumbar postlaminectomy syndrome History or Present Illness: HPI: 70-year-old male returns for follow-up status post medication management with oxycodone 10 mg. Patient reports doing very well at this point a very stable regimen which does control his back pain significantly without significant side effects patient reports no constipation no dizziness drowsiness dysphoria itching and nausea or euphoria. Patient reports he is doing very well with his current regimen reports his appetite is not very good recently but feels that it is due to the food that his has been leaving for him at home which is not to his liking. Patient reports his pain is a 6 on scale 10 is worse over the past week 6 on average 4 to [place] is a 6 today with pain in the low back described as stabbing and aching cramping at times worse with walking standing better with sitting or laying down generally does not awaken her from sleep at night but lately it has over the past week or so which he believes is due to some rainy weather that we had at that time. Patient reports no bowel or bladder incontinence of motor function. Physical Exam: VS: Blood pressure is 102/59 pulse 76 respirations 20 temperature is 97.3 F height is 6 foot 3 inches weight is 138 pounds. PE: PHYSICAL EXAMINATION: GENERAL: The patient is awake, alert, oriented, appropriate, very pleasant in demeanor HEENT: Shows normocephalic, atraumatic. Extraocular movements are intact and symmetrical. Oral cavity: Mucous membranes moist and pink. NECK: Shows anterior throat supple without palpable lymphadenopathy noted. Swallow reflex symmetrical. CHEST: Shows normal on inspection. Breath sounds are clear bilaterally, distant but no rales rhonchi or wheezes auscultated.. HEART: Shows S1, S2 clear. No murmurs auscultated. ABDOMEN: Soft, nontender, nondistended. No palpable organomegaly is noted. BACK: Shows spine grossly in the midline. Normal-appearing cervical lordotic curvature. There is slightly increased thoracic kyphosis, some minor flattening of the lumbar lordotic curvature with well-healed midline surgical scar. Lumbar paraspinous muscles show symmetrical on inspection, on palpation shows some moderate tenderness diffusely throughout the upper, middle and lower distribution of the paraspinous muscles, but without specific trigger points, without radiation of pain. The patient has good rotational motion of the lumbar spine, both laterally as well as extension and flexion without significant di fficulty. No tenderness over the spinous processes, sacrum or sacroiliac regions. EXTREMITIES: Lower extremities show deep tendon reflexes 1 in the patellar and tendo calcaneus tendons. Motor exam is 4 on a scale of 5 with right dorsiflexion, extension, quadriceps and hamstring flexion and 4/5 on the left. Peripheral pulses are 1+ posterior tibial. No peripheral edema is noted bilaterally. Lower extremities are warm and dry to touch, equal in color and appearance. SKIN: Shows warm and dry, good turgor. No edema. No sores, rashes or bruising throughout. Procedure: Procedure: Options were discussed with patient. Patient's old chart was reviewed his current medication regimen updated current review of systems updated today as well. We will refill patient's oxycodone 10 mg, we discussed this decreasing the amount in concentration and/or number of pills but will wait on this as he still having some significant pain again from recent weather changes and general activity. Patient was given instruction and side effects beware of with the medication. Patient has had appropriate K tracks reporting as well as appropriate urinalyses to date as well. We will make this a 1 month prescription patient will follow up in approximate 30 days as scheduled. Medication Injected: Med Injected: None Condition at Discharge: Condition at Discharge: Condition at discharge is stable. JUAN NINA MD Jun 16, 2021 09:33
== END | disposition home or self-care (01) ==
LOC: PNCL 08:52
PROVIDERS: ATTEND Anesthesiology
DX: M51.16 Intervertebral disc disorders with radiculopathy, lumbar region (principal); M96.1 Postlaminectomy syndrome, not elsewhere classified; J44.9 Chronic obstructive pulmonary disease, unspecified; I10 Essential (primary) hypertension; Z79.899 Other long term (current) drug therapy; Z88.0 Allergy status to penicillin; Z88.8 Allergy status to other drugs, medicaments and biological substances
CPT/HCPCS: 99212; G0463

== ENCOUNTER → 2021-07-15 | Outpatient (CLI) | payer OTHER ==
--- NOTE | 2021-07-15 13:38 | PDOC ---
Progress Note - Pain Clinic Date of Service: DOS: DATE: 07/15/21 TIME: 13:36 Diagnosis: Dx: Lumbar radiculopathy with lumbar degenerative disease lumbar postlaminectomy syndrome History or Present Illness: HPI: Telemedicine visit today with patient identity verified with full name as well as full date of , total time spent 11 minutes, telephone voice only 70-year-old male via telemedicine visit today requesting refill of oxycodone 10 mg. Patient reports he is doing very well with this Muna very stable regimen still has some pain in the low back but very well managed with the medications currently and without any significant side effect except for some occasional constipation, patient reports that his helps him manage his medications with constipation [id number] remedies and also increase hydration. We discussed not drinking as much coffee as he is recently because of the caffeine level and possible dehydration. Patient understands and agrees. Patient reports otherwise doing well no new side effects no changes with his medications her pain level reports it is a 6 on scale 10 is worst overall about a 70 to 75% improvement with the medications on the daily activities and sleeping well at night. Patient has had appropriate K tracks reporting as well as appropriate urinalyses to date. Options were discussed with the patient and we will electronically prescribe oxycodone 10 mg #100 for a 1 month supply. Patient was given instructions well side effects beware with the medication. Patient will follow up in approximately 1 month as scheduled. Physical Exam: PE: JUAN NINA MD July 15, 2021 13:38
== END | disposition home or self-care (01) ==
LOC: PNCL 13:09
PROVIDERS: ATTEND Anesthesiology
DX: M51.16 Intervertebral disc disorders with radiculopathy, lumbar region (principal); M96.1 Postlaminectomy syndrome, not elsewhere classified; J44.9 Chronic obstructive pulmonary disease, unspecified; I10 Essential (primary) hypertension; Z79.899 Other long term (current) drug therapy; Z98.890 Other specified postprocedural states; Z79.82 Long term (current) use of aspirin; Z88.0 Allergy status to penicillin; Z88.8 Allergy status to other drugs, medicaments and biological substances
CPT/HCPCS: G0463